=== PATIENT | female | born 1940 | race Caucasian/White ===

== ENCOUNTER 2022-04-02 11:38 | Emergency (ER) | payer MEDICARE, BC, SELFPAY ==
[2022-04-02 12:11] VITALS: BP 115/75; PULSE 70; RESP 18; TEMP 36.8; O2SAT 97; BMI 42.8
--- NOTE | 2022-04-02 12:39 | ED.GENADULT ---
HPI - General Adult General Chief complaint: Head Injury/Pain Stated complaint: Pain on back left side of head Time Seen by Provider: 04/02/22 12:25 History of Present Illness HPI narrative: 82-year-old woman presenting to the emergency department accompanied by her daughter with concern of a headache. She does not typically get headaches. This has been present in some form over the last 2 and half weeks. She describes and gestures to the upper mid left parietal area where there is a persistent 3/10 pain. It throbs and is worse on exertion. In maybe 4-5 times a day she will get more of an intense pain maybe up to 8/10. And this seems then to be present at the back of her head. She has not had any rash/blisters. No fever. No trauma. She is anticoagulated and notes herself to be rock solid on her INRs last checked to 3 weeks ago at 2.6. She is worried about a blood clot. Has not had any discoordination. No nausea. No visual changes. No effect on her hearing noting herself to be chronically hard of hearing using aids. This discomfort is not worse with movement other than exertion is noted. Neck rotation does not change anything. She has not really tried anything for the pain other than her Tylenol for arthritis which does not affect her head pain. No family history of aneurysms or brain tumors. Related Data Home Medications Medication Instructions Recorded Confirmed atenolol 50 mg tablet 50 mg PO Q24H 04/02/22 04/02/22 atorvastatin 20 mg tablet 20 mg PO DAILY 04/02/22 04/02/22 gabapentin 100 mg capsule 200 mg PO Q8H 04/02/22 04/02/22 hydrochlorothiazide 25 mg tablet 25 mg PO DAILY 04/02/22 04/02/22 warfarin 2 mg tablet 1 mg PO DAILY 04/02/22 04/02/22 Allergies Allergy/AdvReac Type Severity Reaction Status Date / Time No Known Drug Allergies Allergy Verified 04/02/22 12:17 Review of Systems Status of ROS: Reports: 10 or more systems reviewed and unremarkable except as noted in History and below [facility] Social History Smoking Status: Never smoker Do you use any of these nicotine containing products: None Second hand tobacco smoke exposure: No How often do you have a drink containing alcohol: never How often do you have six or more drinks on one occasion: Never AUDIT-C Alcohol total score: 0 Non-prescribed substance use: denies use Exam Narrative: Exam Narrative: Pleasant. NAD. Seated calmly. Breathing easily. Cardiovascular appears to be in a regular rate and rhythm. No MRG but distant. Lungs appear to be clear. Is moving all extremities without difficulty. Full strength. Little hard of hearing. Cranial nerves 2-12 are intact. There is no nystagmus. Extraocular movements as noted are intact and full. Not painful. There is no erythema swelling or tenderness over her face. TMJs nontender. Neck is supple and rather sore to palpation in the occipital insertion on the left. Scalp also free of lesions. Otherwise is supple. No lymphadenopathy. Const: Vital Signs, click to edit/add: Vital Signs - 24 hr 04/02/22 12:11 Temperature 98.2 F Pulse Rate [Right Pulse Oximeter] 70 Respiratory Rate 18 Blood Pressure [Ri ght Upper Arm] 115/75 Pulse Oximetry 97 Oxygen Delivery Me thod Room Air Documenting provider has reviewed patient's vital signs: yes Course Vital Signs Vital signs: Initial Vital Signs Temperature 98.2 F 04/02/22 12:11 Temperature Source Temporal Artery Scan 04/02/22 12:11 Pulse Rate 70 04/02/22 12:11 Respiratory Rate 18 04/02/22 12:11 Blood Pressure 115/75 04/02/22 12:11 Blood Pressure Mean 88 04/02/22 12:11 Blood Pressure Position Sitting 04/02/22 12:11 Pulse Oximetry 97 04/02/22 12:11 Oxygen Delivery Method 04/02/22 12:11 Vital Signs Temperature 98.2 F 04/02/22 12:11 Pulse Rate 70 04/02/22 12:11 Respiratory Rate 18 04/02/22 12:11 Blood Pressure 115/75 04/02/22 12:11 Pulse Oximetry 97 04/02/22 12:11 Oxygen Delivery Method 04/02/22 12:11 Temperature 98.2 F 04/02/22 12:11 Pulse Rate 64 04/02/22 13:19 Respiratory Rate 18 04/02/22 12:11 Blood Pressure 114/78 04/02/22 13:19 Pulse Oximetry 96 04/02/22 13:19 Oxygen Delivery Method 04/02/22 13:19 Medical Decision Making MDM Narrative Medical decision making narrative: I suspect more of an occipital neuralgia. She is quite concerned about a ?blood clot? and would very much like head imaging. We will discuss further with Neurology. She does not want anything for pain at the moment. Neurology concurs with suspected dx and reasonable to do a head CT. This was completed and by my read and rad overread looks normal. Discharge Plan Discharge Clinical Impression: Anticoagulated, Occipital neuralgia of left side Patient Disposition: Home w/ Parent or Adult Condition: Stable Additional Instructions: Yes. I suppose you could increase your gabapentin to 900 mg per dose. You seem to tolerate the 600 mg just fine. If this does not seem to make much of a difference I would return to 600 mg after few days. You might place your 's lidocaine patches in that area at the back of your head wear you're most tender. Might try icing. Would still recommend talking with your doctor about an occipital nerve block. Physical therapy might be helpful; do not know if steroid iontophoresis would be indicated here. Might try acupuncture. [place] from [facility] if really troubling at some point. Prescriptions: No Action atenolol 50 mg tablet 50 mg PO Q24H Label Comments: TAKE ONE TABLET BY MOUTH EVERY DAY atorvastatin 20 mg tablet 20 mg PO DAILY Label Comments: TAKE ONE TABLET BY MOUTH ONCE DAILY gabapentin 100 mg capsule 200 mg PO Q8H Label Comments: TAKE 2 CAPSULES (200 MG) BY MOUTH 3 TIMES DAILY. hydrochlorothiazide 25 mg tablet 25 mg PO DAILY Label Comments: TAKE ONE TABLET BY MOUTH EVERY DAY warfarin 2 mg tablet 1 mg PO DAILY Label Comments: TAKE ONE-HALF TABLET (1MG) BY MOUTH EVERY TUE, FRI; TAKE ONE TABLET (2MG) ALL OTHER DAYS IN THE EVENING OR DIRECTED Follow Up/Referrals: Gasper Ludwig MD [Primary Care Provider] - Stand Alone Forms: [employer] Info Instructions
--- OUTSIDE RECORDS SUMMARY | 2022-04-02 12:52 | XMS_ITS | Encounter Summary ---
:1940 Author Organization [facility] Address [address] [place] [address] Care Team Providers Name Role Phone Unavailable Primary Care Provider Unavailable Encounter Details Date Type Department Care Team Description 06/11/2011 Hospital Encounter HX NO MAPPING Social History Tobacco Use Types Packs/Day Years Used Date Smoking Tobacco: Never Assessed Sex Assigned at Date Recorded Not on file documented as of this encounter Plan of Treatment Upcoming Encounters Date Type Specialty Care Team Description 04/09/2022 Office Visit Family Medicine Florentino Salmon M.D. [address] [place], [place] [phone] (Wo rk) documented as of this encounter Visit Diagnoses Not on filedocumented in this encounter
--- OUTSIDE RECORDS SUMMARY | 2022-04-02 12:52 | XMS_ITS | Encounter Summary ---
:1940 Author Organization [facility] Address [address] [place] [address] Care Team Providers Name Role Phone Elsewhere, Pcp Primary Care Provider Unavailable Encounter Details Date Type Department Care Team Description 01/17/2022 Ancillary Procedure Department of Dermatology Social History Tobacco Use Types Packs/Day Years Used Date Smoking Tobacco: Never Smokeless Tobacco: Never Sex Assigned at Date Recorded Not on file documented as of this encounter Plan of Treatment Upcoming Encounters Date Type Specialty Care Team Description 04/09/2022 Office Visit Family Medicine Florentino Salmon M.D. [address] [place], [place] [phone] (Wo rk) documented as of this encounter Procedures Procedure Name Priority Date/Time Associated Comments Diagnosis DERMATOLOGY IMAGE Routine 01/17/2022 11:55 Result s for this EXAM AM CDT procedure are i n the results section. documented in this encounter Results Generalized 500-Dermatology Image Exam (01/17/2022 11:55 AM CDT) Specimen (Source) Anatomical Collection Method Collection Time Re ceived Time Location / / Volume Laterality 01/17/2022 11:53 AM CDT Narrative [facility] - 01/17/2022 11:55 AM CDT This order has been created and auto-finalized to support the import of images acquired without order. The clini mary documentation to support these images can be found on the encounter audrey t produced images. Provider Not In System IMG NON RAD IMAGING PROCEDUR ES Performing Organization Address City/State/ZIP Code Phon e Number [facility] NA documented in this encounter Visit Diagnoses Not on filedocumented in this encounter Care Teams Bilingual Trainer Relationship Specialty Start Date End Date Elsewhere, Pcp PCP - General Internal Medicine 01/17/22 documented as of this encounter
--- OUTSIDE RECORDS SUMMARY | 2022-04-02 12:52 | XMS_ITS | Encounter Summary ---
:1940 Author Organization [facility] Address [address] [place] [address] Care Team Providers Name Role Phone Unavailable Primary Care Provider Unavailable Encounter Details Date Type Department Care Team Description 06/11/2011 - Hospital Encounter HX RST UNIT 5-4 06/12/2011 GYNECOLOGY Social History Tobacco Use Types Packs/Day Years Used Date Smoking Tobacco: Never Assessed Sex Assigned at Date Recorded Not on file documented as of this encounter Last Filed Vital Signs Vital Sign Reading Time Taken Comments Blood Pressure 124/62 06/12/2011 7:46 AM CELLOPHANE BAG MACHINE OPERATOR Pulse 63 06/12/2011 7:46 AM CELLOPHANE BAG MACHINE OPERATOR Temperature - - Respiratory Rate 16 06/12/2011 7:46 AM CELLOPHANE BAG MACHINE OPERATOR Oxygen Saturation - - Inhaled Oxygen Concentration - - Weight - - Height - - Body Mass Index - - documented in this encounter Plan of Treatment Upcoming Encounters Date Type Specialty Care Team Description 04/09/2022 Office Visit Family Medicine Florentino Salmon M.D. [address] [place], [place] [phone] (Wo rk) documented as of this encounter Procedures Procedure Name Priority Date/Time Associated Comments Diagnosis CBC WITHOUT Routine 06/11/2011 11:56 PM Results for this DIFFERENTIAL, B CELLOPHANE BAG MACHINE OPERATOR procedure ar e in the results section. CREATININE WITH Routine 06/11/2011 11:56 PM Resul ts for this EGFR, S/P CELLOPHANE BAG MACHINE OPERATOR procedure are i n the results section. HXGENERAL PATHOLOGY Routine 06/11/2011 3:45 PM Re sults for this REPORT CELLOPHANE BAG MACHINE OPERATOR procedure are i n the results section. documented in this encounter Results CBC without Differential (06/11/2011 11:56 PM CELLOPHANE BAG MACHINE OPERATOR) Patholo gist Method Time Signature Erythrocytes 4.77 3.90 - [facility] 5.03 LABORATORIES - X10(12)/L [facility] MCV 91.6 81.6 - [facility] 98.3 FL LABORATORIES - [facility] Leukocytes 8.7 3.5 - [facility] 10.5 LABORATORIES - X10(9)/L [facility] Hemoglobin 13.9 12.0 - [facility] 15.5 G/DL LABORATORIES - [facility] Hematocrit 43.7 34.9 - [facility] 44.5 % [facility] - [facility] RBC Distrib Width 13.8 11.9 - [facility] 15.5 % [facility] - [facility] Platelet Count 183 150 - 450 [facility] X10(9)/L [facility] Specimen Anatomical Collection Method Collection Time Receive d Time (Source) Location / / Volume Laterality 06/11/2011 11:56 06/11/2011 PM CELLOPHANE BAG MACHINE OPERATOR 11:56 PM CELLOPHANE BAG MACHINE OPERATOR Kait Rock, B.Ch. LAB BLOOD ADD-ON Performing Organization Address City/[facility]/ZIP Code Phon e Number [facility] LABORATORIES - [address] [phone] [facility] Creatinine with Estimated GFR (MDRD) (06/11/2011 11:56 PM CELLOPHANE BAG MACHINE OPERATOR) P athologist Signature Creatinine 0.7 0.6 - 1.1 [facility] MG/DL [facility] Specimen Anatomical Collection Method Collection Time Receive d Time (Source) Location / / Volume Laterality 06/11/2011 11:56 06/11/2011 PM CELLOPHANE BAG MACHINE OPERATOR 11:56 PM CELLOPHANE BAG MACHINE OPERATOR Kati Rock, B.Ch. LAB BLOOD ADD-ON Performing Organization Address City/[facility] Phon e Number [facility] - [address] [phone] [facility] Hx general Pathology Report (06/11/2011 3:45 PM CELLOPHANE BAG MACHINE OPERATOR) Specimen Anatomical Collection Method Collection Time Receive d Time (Source) Location / / Volume Laterality 06/11/2011 3:45 PM 2 3:45 CELLOPHANE BAG MACHINE OPERATOR PM CELLOPHANE BAG MACHINE OPERATOR Narrative [facility] LABORATORIES - [facility] - 06/11/2011 3:45 PM CELLOPHANE BAG MACHINE OPERATOR ??06/11/2011 Surgical Pathology ?([id number]) ? Requested By: Liliana Carlisle ??[phone] ? SLIDE DISPOSITION: ? DIAGNOSIS: ?? A. ??Endocervix, polyp, excision: ??End ocervical polyp (1.5 x 0.9 x 0.7 cm). ?? B. ??Endocervix, curettage: ??Benign en docervical polyp (0.9 x 0.5 x 0.4 cm). ?? C. ??Endometrium, curettage: ??Fragment s of benign endometrial polyp and inactive endometrium. ?? D. ??Ovary and fallopian tube, right, s alpingo-oophorectomy: ??Right fallopian tube with benign chronic mary tosalpinx (3.6 x 1.9 x 1.6 cm), negative for tumor. ??Right ovary without diagnostic abnormality. ?? E. ??Ovary and fallopian tube, left, sa lpingo-oophorectomy: ??Left fallopian tube with benign chronic mary tosalpinx (3.3 x 1.4 x 1.3 cm), negative for tumor. ??Left ovary w ithout diagnostic abnormality. ?? This final pathology report is based on the gross/macroscopic examination and the frozen section hist ologic evaluation of the specimen(s). Hematoxylin and Eosin (H&E ) permanent sections are reviewed to confirm these findings. Any substantive changes identified on permanent section review will be reflected in a revised report. ? 06/12/2011 12:11 Interpreted by: Daniel Kamara M.D. [phone] Report electronically signed by Daniel Kamara M.D. Transcribed by: keenan 06/11/2011 17:32:34 ? GROSS DESCRIPTION: A. ??Received fresh labeled endocervic al polyp is a 1.5 x 0.9 x 0.7 cm mitchell-red bilobed polyp. ??All submitt ed. ??Grossed by NINFA. ?? B. ??Received fresh labeled endocervic al curettage is a 0.9 x 0.5 x 0.4 cm pink-mitchell polyp. ??All submitted. ??Grossed by NINFA. ?? C. ??Received fresh labeled endometria l curettage is a 1.8 x 1.6 x 0.4 cm aggregate of irregular pink-mitchell tissue fragments. ??All submitted. ??Grossed by DARIN. ?? D. ??Received fresh labeled right fall opian tube and ovary is a 19.92 gram, 2.8 x 1.4 x 1.2 cm ovary wi th a 10.2 x 1.9 x 1.6 cm fallopian tube. ??The ovary has a mickie h outer surface and solid cut surface. ??The proximal portion of the fallopian tube is dilated (3.6 x 1.9 x 1.6 cm) and contains hemorrhagi c fluid, consistent with hematosalpinx. ??The fallopian tube als o shows evidence of prior tubal ligation. ??Flatbed Driver sectio ns are submitted. ??Grossed by NINFA. ?? E. ??Received fresh labeled left fallo pian tube and ovary is a 10.65 gram, 3.0 x 1.4 x 1.3 cm ovary wi th a 9.3 x 1.4 x 1.3 cm fallopian tube. ??The ovary has a mickie h outer surface and solid cut surface. ??The proximal portion of the fallopian tube is dilated (3.3 x 1.4 x 1.3 cm) and contains hemorrhagi c fluid, consistent with hematosalpinx. ??The fallopian tube als o shows evidence of prior tubal ligation. ??Flatbed Driver sectio ns are submitted. ??Grossed by NINFA. ?? BLOCK SUMMARY: Part A: ??Endocervical polyp ?1 Endocervical polyp ?? Part B: ??Endocervical curretage ?1 Endocervical curettage ?? Part C: ??Endometrial curettage ?1 Endometrial curettage ?? Part D: ??Right fallopian tube and ovar y ?1 Rt tube-1 ?2 Rt tube-2 ?3 Rt tube-3 ?4 Rt ovary ?? Part E: ??Left fallopian tube and ovary ?1 Lt tube-1 ?2 Lt tube-2 ?3 Lt ovary ? Procedure Note 08/15/2017 06/11/2011 Surgical Pathology ([id number] ) Requested By: Liliana Carlisle [phone] SLIDE DISPOSITION: DIAGNOSIS: A. Endocervix, polyp, excision: Endocer vical polyp (1.5 x 0.9 x 0.7 cm). B. Endocervix, curettage: Benign endoce rvical polyp (0.9 x 0.5 x 0.4 cm). C. Endometrium, curettage: Fragments of benign endometrial polyp and inactive endometrium. D. Ovary and fallopian tube, right, noah pingo-oophorectomy: Right fallopian tube with benign chronic mary tosalpinx (3.6 x 1.9 x 1.6 cm), negative for tumor. Right ovary wi thout diagnostic abnormality. E. Ovary and fallopian tube, left, salp ingo-oophorectomy: Left fallopian tube with benign chronic mary tosalpinx (3.3 x 1.4 x 1.3 cm), negative for tumor. Left ovary wit hout diagnostic abnormality. This final pathology report is based on the gross/macroscopic examination and the frozen section hist ologic evaluation of the specimen(s). Hematoxylin and Eosin (H&E ) permanent sections are reviewed to confirm these findings. Any substantive changes identified on permanent section review will be reflected in a revised report. 06/12/2011 12:11 Interpreted by: Daniel Kamara M.D. [phone] Report electronically signed by Daniel Kamara M.D. Transcribed by: keenan 06/11/2011 17:32:34 GROSS DESCRIPTION: A. Received fresh labeled endocervical polyp is a 1.5 x 0.9 x 0.7 cm mitchell-red bilobed polyp. All submitted . Grossed by NINFA. B. Received fresh labeled endocervical curettage is a 0.9 x 0.5 x 0.4 cm pink-mitchell polyp. All submitted. G rossed by NINFA. C. Received fresh labeled endometrial curettage is a 1.8 x 1.6 x 0.4 cm aggregate of irregular pink-mitchell tissue fragments. All submitted. Grossed by DARIN. Cassidy. Received fresh labeled right fallop filiberto tube and ovary is a 19.92 gram, 2.8 x 1.4 x 1.2 cm ovary wi th a 10.2 x 1.9 x 1.6 cm fallopian tube. The ovary has a smooth outer surface and solid cut surface. The proximal portion of the fa llopian tube is dilated (3.6 x 1.9 x 1.6 cm) and contains hemorrhagi c fluid, consistent with hematosalpinx. The fallopian tube also shows evidence of prior tubal ligation. Flatbed Driver sections are submitted. Grossed by TJD. Gordon. Received fresh labeled left fallopi an tube and ovary is a 10.65 gram, 3.0 x 1.4 x 1.3 cm ovary wi th a 9.3 x 1.4 x 1.3 cm fallopian tube. The ovary has a smooth outer surface and solid cut surface. The proximal portion of the fa llopian tube is dilated (3.3 x 1.4 x 1.3 cm) and contains hemorrhagi c fluid, consistent with hematosalpinx. The fallopian tube also shows evidence of prior tubal ligation. Flatbed Driver sections are submitted. Grossed by NINFA. BLOCK SUMMARY: Part A: Endocervical polyp 1 Endocervical polyp Part B: Endocervical curretage 1 Endocervical curettage Part C: Endometrial curettage 1 Endometrial curettage Part D: Right fallopian tube and ovary 1 Rt tube-1 2 Rt tube-2 3 Rt tube-3 4 Rt ovary Part E: Left fallopian tube and ovary 1 Lt tube-1 2 Lt tube-2 3 Lt ovary Evgeny Mauricio M.D. LAB PATHOLOGY/CYTOLOGY ORDER TISH Performing Organization Address City/State/ZIP Code Phon e Number [facility]ORATORIES - [address] [place], [place] [address] [facility] documented in this encounter Visit Diagnoses Not on filedocumented in this encounter
--- OUTSIDE RECORDS SUMMARY | 2022-04-02 12:52 | XMS_ITS | Encounter Summary ---
:1940 Author Organization [facility] Address [address] [place] [address] Care Team Providers Name Role Phone Unavailable Primary Care Provider Unavailable Encounter Details Date Type Department Care Team Description 09/19/2008 - Hospital Encounter HX RST UNIT 8-2 09/22/2008 ORTHOPEDICS Social History Tobacco Use Types Packs/Day Years Used Date Smoking Tobacco: Never Assessed Sex Assigned at Date Recorded Not on file documented as of this encounter Plan of Treatment Upcoming Encounters Date Type Specialty Care Team Description 04/09/2022 Office Visit Family Medicine Florentino Salmon M.D. [address] [place], [place] [phone] (Wo rk) documented as of this encounter Procedures Procedure Name Priority Date/Time Associated Comments Diagnosis DX KNEE UNILATERAL 2 Routine 09/19/2008 4:10 PM R esults for this VIEWS CDT procedure are i n the results section. documented in this encounter Results DX Knee 2 Views (09/19/2008 4:10 PM CDT) Anatomical Region Laterality Modality Lower Extremity, Knee N/A Radiographic Imagi ng Specimen (Source) Anatomical Collection Method Collection Time Re ceived Time Location / / Volume Laterality 09/19/2008 4:10 PM CDT Narrative 09/19/2008 4:16 PM CDT 19-Sep-2008 16:10:00 ??Exam: R Knee 2vw AP/Lat Indications: INTRAOP, advanced osteoarth ritis, right knee replacement, Final films ORIGINAL REPORT - 19-Sep-2008 16:16:00 Right Knee 2vw AP/Lat: Intra-operative images obtained during r ight TKA with patellar resurfacing. Negative for PO purposes. Electronically signed by: ?? LilianaS. ??Moncho CARMICHAEL ??[phone] 19-Sep-2008 16:16 Procedure Note Taj Ivan M.D. - 08/23/2017Format ting of this note might be different from the original. 19-Sep-2008 16:10:00 Exam: R Knee 2vw AP /Lat Indications: INTRAOP, advanced osteoarth ritis, right knee replacement, Final films ORIGINAL REPORT - 19-Sep-2008 16:16:00 Right Knee 2vw AP/Lat: Intra-operative images obtained during r ight TKA with patellar resurfacing. Negative for PO purposes. Electronically signed by: Cally Ivan MD. [phone] 19-Sep-2008 16:1 6 [facility] DIAGNOSTIC IMAGING [facility]E [facility] documented in this encounter Visit Diagnoses Not on filedocumented in this encounter
--- OUTSIDE RECORDS SUMMARY | 2022-04-02 12:52 | XMS_ITS | Clinical Summary ---
:1940 Author Organization [facility] Address [address] [place] [address] Care Team Providers Name Role Phone Elsewhere, Pcp Primary Care Provider Unavailable Source Comments Patient records contain information from all sites at [facility]. For routine questions regarding patient records, call [phone] during business hours, M-F 8:00 AM - 5:00 PM Central Time. Record requests for emergency care only can be directed to [phone] at any time.[facility] Allergies Active Allergy Reactions Severity Noted Date Comments Fluconazole Other (see comments) 08/06/2006 per pap er chart sick Poly-Ureaurethane Shortness of breath Low 04/30/2016 Polyurethane-39 Shortness of breath 05/08/2011 Sulfa (Sulfonamide Other (see comments), High 08/06/2006 Other reaction(s): Antibiotics) GI intolerance nausea Sulfasalazine Nausea Only 11/13/2015 Tramadol Other (see comments) 09/19/2008 Medications Medication Sig Dispensed Refills Start Date End Date Status acetaminophen (TYLENOL) Take 500 mg by 0 12/28/2015 Active 500 mg tablet mouth. albuterol 90 INHALE 1-2 PUFFS 0 06/08/2013 Active mcg/actuation inhaler BY MOUTH EVERY 4 HOURS IF NEEDED atenoloL (TENORMIN) 50 mg Take 50 mg by 0 06/24/2021 Active tablet mouth daily. atorvastatin (LIPITOR) 20 Take 1 tablet by 0 021 Active mg tablet mouth daily. gabapentin (NEURONTIN) Take 200 mg by 0 04/25/2021 Active 100 mg capsule mouth. hydroCHLOROthiazide Take 25 mg by 0 06/24/2021 Active (HYDRODIURIL) 25 mg mouth daily. tablet alum-mag hydroxide-simeth Take 30 mL by 0 04/07/2018 Active 225-200-25 mg/5 mL mouth. suspension warfarin (COUMADIN) 2 mg Take by mouth 1 0 4 Active tablet mg (2 mg x 0.5) every Fri; 2 mg (2 mg x 1) all other days OR as directed. fluorouraciL (EFUDEX) 5 % Apply 1 80 g 6 01/17/2022 Active creamIndications: application Keratosis Actinic topically 2 (two) times a day. For 3-4 wks on entire left arm. Then 3-5 wks on left lower leg. Then 3-5 wks on right lower leg. Then 3-4 wks on entire right arm. triamcinolone (KENALOG) Apply 1 80 g 3 01/17/2022 Active 0.1 % ointment application topically 2 (two) times a day as needed for irritation or rash. May spot treat irritated, sore, or itchy areas of the treatment areas during and after Efudex treatment. Encounters Date Type Specialty Care Team Description 01/17/2022 Ancillary Procedure 01/17/2022 Ancillary Procedure 01/17/2022 Ancillary Procedure 01/17/2022 Ancillary Procedure 01/17/2022 Ancillary Procedure 01/17/2022 Office Visit Family Medicine Florentino Salomn Kerat osis Actinlynda Wasserman from Last 3 Months Immunizations Name Administration Dates Next Due HZV (ZOSTAVAX) 11/04/2010, 02/07/2009 HepA, Unspecified 08/07/2006 HepB, Unspecified 08/07/2006 Influenza Split 02/20/2014, 01/24/2013, 02/23/2008 Influenza, Seasonal, Injectable 03/24/2006 PPSV23 05/25/2004 Td Preservative Free (TENIVAC, DECAVAC) 05/05/1997 Td, (Adult) Unspecified 05/25/2005 Tdap 07/21/2012 TyVi (inj) 02/04/2012 Social History Tobacco Use Types Packs/Day Years Used Date Smoking Tobacco: Never Smokeless Tobacco: Never Tobacco Cessation: Counseling Given: Not Answered Sex Assigned at Date Recorded Not on file Last Filed Vital Signs Vital Sign Reading Time Taken Comments Blood Pressure 158/77 05/29/2014 11:07 AM PROGRAM DIRECTOR/AIR PERSONALITY Pulse 86 05/29/2014 11:07 AM PROGRAM DIRECTOR/AIR PERSONALITY Temperature - - Respiratory Rate 18 02/19/2014 2:20 PM CDT Oxygen Saturation - - Inhaled Oxygen Concentration - - Weight 112 kg (246 lb 7.6 oz) 05/29/2014 11:07 AM PROGRAM DIRECTOR/AIR PERSONALITY Height 156.5 cm (5' 1.61) 05/29/2014 11:07 AM PROGRAM DIRECTOR/AIR PERSONALITY Body Mass Index 45.65 05/29/2014 11:07 AM PROGRAM DIRECTOR/AIR PERSONALITY Plan of Treatment Upcoming Encounters Date Type Specialty Care Team Description 04/09/2022 Office Visit Family Medicine Florentino Salmon M.D. [address] [phone] (Wo rk) Health Maintenance Due Date Last Done Comments Zoster Vaccines (2 of 3) 12/30/2010 11/04/2010, 02/07/2009 Depression Screening (Annual 05/25/2021 PHQ-2) Fall Risk Screen (Annual) 05/25/2021 Creatinine Level 10/25/2021 10/25/2020, 05/03/2019, 08/11/2018, Additional history exists Potassium Level 10/25/2021 10/25/2020, 05/03/2019, 02/09/2018 Sodium Level 10/25/2021 10/25/2020, 05/03/2019, 02/09/2018 COVID-19 Vaccine (5 - Booster for 02/25/2022 12/31/2021, , Pfizer series) 07/31/2020, Additional history exists DTaP,Tdap,and Td Vaccines (7 - Td 07/21/2022 07/21/2012, , or Tdap) 05/25/2005, Additional history exists Hepatitis B Vaccines Completed 07/02/2007, 02/22/2007, 09/08/2006, Additional history exists Pneumococcal vaccine (65+ years) Completed 01/24/2015, , 05/25/2004, Additional history exists Influenza Vaccine Completed 02/07/2022, 01/29/2021, 02/17/2020, Additional history exists Medical Devices Implanted Type Area General Counselor Device Shelf Model / Identifier Expiration Serial / Date Lot Triathlon-Tibial Baseplate [place] #2 - [id number] Knee Other/Legacy - Dickson Implanted: Qty: 1 on 05/10/2008 Implant See Implant Description Description: Device General Counselor - Stryk er Eric.. Body Location - Other. Left. Device Status Text - [id number] [id number]. Triathlon-Femoral Cemented #3 Rt - [id number] Knee Implant Other/Legacy - See Implant Hewitt Implanted: Qty: 1 on 09/19/2008 Description Description: Device General Counselor - Stryk er Eric.. Body Location - Other. Right. Device Status Text - [id number] [id number]. Conversions - Default Historical Implant Device Knee Implant Implanted: 05/29/2014 (Quantity not on file) Description: Device Status Text - Knee I mp. both knees. Cement Bone Large - Garcia [id number] Misc Other Hewitt Implanted: Qty: 2 on 05/10/2008 Description: Device General Counselor - Stryk er Eric.. Device Status Text - [id number]. Cement Bone Large - Garcia [id number] Misc Other Dickson Implanted: Qty: 2 on 09/19/2008 Description: Device General Counselor - Stryk er Eric.. Device Status Text - [id number]. Procedures Procedure Name Priority Date/Time Associated Comments Diagnosis DERMATOLOGY IMAGE Routine 01/17/2022 11:55 Result s for this EXAM AM CDT procedure are i n the results section. DERMATOLOGY IMAGE Routine 01/17/2022 11:55 Result s for this EXAM AM CDT procedure are i n the results section. DERMATOLOGY IMAGE Routine 01/17/2022 11:55 Result s for this EXAM AM CDT procedure are i n the results section. DERMATOLOGY IMAGE Routine 01/17/2022 11:55 Result s for this EXAM AM CDT procedure are i n the results section. DERMATOLOGY IMAGE Routine 01/17/2022 11:55 Result s for this EXAM AM CDT procedure are i n the results section. from Last 3 Months Results Leg left 528b-Dermatology Image Exam (01/17/2022 11:55 AM CDT)Only the most recent of5 resultswithin the time period is included. Specimen (Source) Anatomical Collection Method Collection Time [...] Code Phon e Number IIMS IIMS NA from Last 3 Months Insurance Payer Benefit Plan / Subscriber ID Effective Phone Address T ype Group Dates MEDICARE MEDICARE A AND [id number] 2005-Pres [address] [place] [address] [place] [id number] 2018-Prese [place] [place] [id number] Indemnity [place] [address] Advance Directives For more information, please contact: [phone] Documents on File Type Date Recorded Patient Transmission Line Engineer Explanati on Advance Directives 08/31/2019 11:12 AM Health Care Directive Advance Directives 10/14/2016 12:00 AM Legacy doc ument. See document viewer. Advance Directives 10/14/2016 12:00 AM Legacy doc ument. See document viewer. Healthcare Agents on File Name Relationship Healthcare Agent Communication Relationship Erin Tran Spouse Health Care Agent Nataliya Lewis Daughter [facility] Care Agent Care Teams Investment Director Relationship Specialty Start Date End Date Elsewhere, Pcp PCP - General Internal Medicine 01/17/22
--- OUTSIDE RECORDS SUMMARY | 2022-04-02 12:52 | XMS_ITS | Encounter Summary ---
:1940 Author Organization [facility] Address [address] [place] [address] Care Team Providers Name Role Phone Elsewhere, [...] Medicine Florentino Salmon M.D. [address] [place], [place] [phone] (Wo rk) documented as of this encounter Procedures Procedure Name Priority Date/Time Associated Comments Diagnosis DERMATOLOGY IMAGE Routine 01/17/2022 11:55 Result s for this EXAM AM CDT procedure are i n the results section. documented in this encounter Results Leg left 528b-Dermatology Image Exam (01/17/2022 11:55 AM CDT) Specimen [...] on filedocumented in this encounter Care Teams Customs Broker Relationship Specialty Start Date End Date Elsewhere, Pcp PCP - General Internal Medicine 01/17/22 documented as of this encounter
--- OUTSIDE RECORDS SUMMARY | 2022-04-02 12:52 | XMS_ITS | Encounter Summary ---
:1940 Author Organization [facility] Address [address] [place] [address] Care Team Providers Name Role Phone Elsewhere, Pcp Primary Care Provider Unavailable Reason for Referral Outpatient (Routine) - Authorized Specialty Diagnoses / Procedures Referred By Contact Refer red To Contact Dermatology [facility]orentino Sal[facility] [address] [place] [address] Referral ID Status Reason Start Date Expiration Date Visits V isits Requested Authorized [id number] Authorized 01/17/2022 01/16/2025 1 1 Scheduling Instructions 3 month recheck Efudex Reason for Visit Reason Comments Lesion Outpatient (Routine) - Closed Specialty Diagnoses / Procedures Referred By Contact Refer red To Contact Dermatology Florentino Sal[facility] [address] [place] [phone] Referral ID Status Reason Start Date Expiration Date Visits Requ ested Visits Authorized [id number] Closed 09/04/2021 09/04/2022 1 1 Encounter Details Date Type Department Care Team Description 01/17/2022 Office Visit Department of [facility] Florentino Salmon, Keratosis Actinic MedicineJohnathan M.D. [facility], in [place], [address] [facility] [place] [address] [phone] ROCHELLE ALVAREZ [phone] (Wo rk) [phone] Social History Tobacco Use Types Packs/Day Years Used Date Smoking Tobacco: Never Smokeless Tobacco: Never Tobacco Cessation: Counseling Given: Not Answered Sex Assigned at Date Recorded Not on file documented as of this encounter H&P Notes Florentino Salmon M.D. - 01/17/2022 11:15 AM CDT Images from the original note were not included. Note: Patient was made aware that I am trained as a Family Medicine Specialist and have a special interest in Dermatology. However, I am not a supervisor decorating. Anything beyond the scope of my abilities or comfort level will be referred to a End User Consultant of their choosing. SUBJECTIVE CHIEF COMPLAINT / REASON FOR VISIT Lesion of concern HISTORY OF PRESENT ILLNESS Chief Complaint (Reason for visit): Recheck arms after efudex How long has lesion(s) been present, any symptoms (pain, bleeding, or itching)? : Started back in july, feels it didn't do anything Was patient referred, self referred, or a returning derm patient? : returning Personal or family history of skin cancer or other skin condition? : Aks Any other skin concerns today? : none REVIEW OF SYSTEMS PERTINENT TO DERMATOLOGY REVIEW OF SYSTEMS Constitutional, integumentary, and allergic/immunologic review of systems is negative of systems is otherwise negative except as remarked above or below. PAST MEDICAL/FAMILY/SOCIAL HISTORY PERTINENT TO DERMATOLOGY See HPI OBJECTIVE PHYSICAL EXAM Physical Exam Chest General: Alert and oriented x3. Well-nourished and groomed, in no acute distress. SKIN: A focused skin examination was performed of the area(s) of concern. She still has multiple AKson bilateral arms and bilateral lower legs. ASSESSMENT / PLAN #1 Keratosis Actinic She has 4 on the chest. I recommended treating these with cryotherapy. Given the precancerous nature of the lesion(s), treatment is medically indicated and cryotherapy was recommended. Verbal informedconsent was obtained from the patient and we proceeded to treat the premalignant lesion(s) with liquid nitrogen cryotherapy.Aftercare instructions were given. Should the lesion(s) not resolve after thehealing period, patient should return for reevaluation and consideration of biopsy. She has numerous AKs on bilateral arms and lower legs. We'll have her use topical efudex in a rotation. - fluorouraciL (EFUDEX) 5 % cream; Apply 1 application topically 2 (two) times a day. For 3-4 wks onentire left arm. Then 3-5 wks on left lower leg. Then 3-5 wks on right lower leg. Then 3-4 wks on entire right arm., Starting Thu01/17/2022, Normal - triamcinolone (KENALOG) 0.1 % ointment; Apply 1 application topically 2 (two) times a day as needed for irritation or rash. May spot treat irritated, sore, or itchy areas of the treatment areas during and after Efudex treatment., Starting Thu01/17/2022, Normal 2. Derm Follow Up Frequency: 3 months, or sooner if new skin changes occur. Florentino Salmon MD This note represents shared documentation between the assisting nurse and the encounter provider. The content has been reviewed and edited as needed by the provider. documented in this encounter Plan of Treatment Upcoming Encounters Date Type Specialty Care Team Description 04/09/2022 Office Visit Family Medicine Florentino Salmon M.D. [address] [phone] (Wo rk) Scheduled Referrals Name Type Priority Associated Order Schedule Diagnoses Dermatology office Outpatient Referral Routine Ex pected: visit (clinic) 04/19/2022 (Approximate), Expires: 04/19/2023 documented as of this encounter Visit Diagnoses Diagnosis Keratosis Actinic documented in this encounter Care Teams Liquor Maker Relationship Specialty Start Date End Date Elsewhere, Pcp PCP - General Internal Medicine 01/17/22 documented as of this encounter
--- OUTSIDE RECORDS SUMMARY | 2022-04-02 12:52 | XMS_ITS | Encounter Summary ---
:1940 Author Organization [facility] Address [address] [place] [address] Care Team Providers Name Role Phone Unavailable Primary Care Provider Unavailable Reason for Referral Outpatient (Routine) - Closed Specialty Diagnoses / Procedures Referred By Contact Corina chadwick To Contact Dermatology Florentino Salmon M.D. [facility] [address] [place] [phone] Referral ID Status Reason Start Date Expiration Date Visits Requ ested Visits Authorized [id number] Closed 09/04/2021 09/04/2022 1 1 Scheduling Instructions Recheck arms after Efdex Reason for Visit Reason Comments Actinic Keratosis Appointment Request (Routine) - Closed Specialty Diagnoses / Procedures Referred By Contact Corina chadwick To Contact Dermatology Referral ID Status Reason Start Date Expiration Date Visits Requ ested Visits Authorized [id number] Closed 07/23/2021 07/23/2022 1 1 Encounter Details Date Type Department Care Team Description 09/04/2021 Comprehensive Visit Department of Florentino Salmon atosis Actinic (Primary Dx); Dermatology amanda Rocha M.D. [facility] [place], [place] [address] [place] [phone] Social History Tobacco Use Types Packs/Day Years Used Date Smoking Tobacco: Never Sex Assigned at Date Recorded Not on file documented as of this encounter H&P Notes Florentino Salmon M.D. - 09/04/2021 3:30 PM CDT Images from the original note were not included. Note: Patient was made aware that I am trained as a Family Medicine Specialist and have a special interest in Dermatology. However, I am not a pot annealer. Anything beyond the scope of my abilities or comfort level will be referred to a Synchronous Motor Assembler of their choosing. SUBJECTIVE CHIEF COMPLAINT / REASON FOR VISIT Waist up skin exam, screening for skin cancer HISTORY OF PRESENT ILLNESS Reason for visit: Check arms legs and back More details of current skin concern: Any other skin concerns: No Has the patient previously been a dermatology patient? No Is patient referred by another provider or self referred? New patient Personal history of skin cancer? (include details) No Significant history of sun exposure? Yes Two or more blistering sunburns before age 16? Yes History of tanning bed use? No Personal history of other skin problems? No Family history of skin cancer? No Family history of other significant skin problems? No REVIEW OF SYSTEMS PERTINENT TO DERMATOLOGY REVIEW OF SYSTEMS Constitutional, integumentary, and allergic/immunologic review of systems is negative of systems is otherwise negative except as remarked above or below. PAST MEDICAL/FAMILY/SOCIAL HISTORY PERTINENT TO DERMATOLOGY See HPI OBJECTIVE PHYSICAL EXAM Physical Exam Chest Chest comments: Numerous actinic keratoses covering the neckline area Upper extremities Upper extremities comments: Numerous actinic keratoses covering both upper extremities Lower extremities Right lower extremity comments: Numerous actinic keratoses covering both lower legs. These are less numerous than the arms, however. General: Alert and oriented x3. Well-nourished and groomed, in no acute distress. SKIN: A full skin examination was performed of the scalp, head, neck, face, hair, chest, abdomen, back, upper extremities including palms, digits and nails. Eyes and lips including vermilion lips, alsoexamined. Skin inspected and palpated where appropriate., and dermoscope utilized where appropriate.There are multiple nevi of the chest, abdomen, back, and the upper extremities of benign appearance with moderately sun damaged skin. For skin lesions of special note, including location, description, size, and treatment plan, see Impression/Report/Plan below. ASSESSMENT / PLAN IMPRESSION/REPORT/PLAN 1. Waist up skin examination was performed today, screening for skin cancer. Education was given on appropriate sun protection and monitoring for suspicious skin changes. 2. Lesions of note with assessment and plan of care as follows: Numerous actinic keratoses in the sun exposed areas, except notably, her face. Recommend we start Efudex twice daily for 3 wks on the right arm followed by 3 wks on the left arm. I'd like to see her back after these have healed and then we can move on to the other areas if she's responding well. 3. 2 cyst-like lesions on the right labia majora. These are somewhat reassuring in that they are round and smooth, however they are not in typical areas for cysts in the genital area. I'd like for INTERACTIVE GRAPHIC DESIGNER specialty to evaluate these to see if they need to biopsy them or if they feel these are benign. She will make an appointment at her home clinic in [place] for this. 4. Dermatology follow-up Derm Follow Up Frequency: as mentioned above after Efudex treatment, then likely every 6 months for awhile. Florentino Salmon MD This note represents shared documentation between the assisting nurse and the encounter provider. The content has been reviewed and edited as needed by the provider. documented in this encounter Miscellaneous Notes Addendum Note - Helen Encinas, R.M.A. - 09/04/2021 3:30 PM CDT Addended by: HELEN ENCINAS on: 09/04/2021 04:22 PM Modules accepted: Orders documented in this encounter Plan of Treatment Upcoming Encounters Date Type Specialty Care Team Description 04/09/2022 Office Visit Family Medicine Florentino Salmon M.D. [address] [place] [phone] (Wo rk) Scheduled Referrals Name Type Priority Associated Order Schedule Diagnoses Dermatology office Outpatient Referral Routine Ex pected: visit (clinic) 12/06/2021 (Approximate), Expires: 12/04/2022 documented as of this encounter Visit Diagnoses Diagnosis Keratosis Actinic - Primary Sun Damaged Skin documented in this encounter
--- OUTSIDE RECORDS SUMMARY | 2022-04-02 12:52 | XMS_ITS | Encounter Summary ---
:1940 Author Organization [facility] Address [address] [place] [address] Care Team Providers Name Role Phone Elsewhere, [...] Medicine Florentino Salmon M.D. [address] [place], [place] [phone] (Wo rk) documented as of this encounter Procedures Procedure Name Priority Date/Time Associated Comments Diagnosis DERMATOLOGY IMAGE Routine 01/17/2022 11:55 Result s for this EXAM AM CDT procedure are i n the results section. documented in this encounter Results Arm left 523b-Dermatology Image Exam (01/17/2022 11:55 AM CDT) Specimen [...] on filedocumented in this encounter Care Teams Closet Organizer Relationship Specialty Start Date End Date Elsewhere, Pcp PCP - General Internal Medicine 01/17/22 documented as of this encounter
--- OUTSIDE RECORDS SUMMARY | 2022-04-02 12:52 | XMS_ITS | Encounter Summary ---
:1940 Author Organization [facility] Address [address] [place] [address] Care Team Providers Name Role Phone Elsewhere, [...] Medicine Florentino Salmon M.D. [address] [place], [place] [phone] (Wo rk) documented as of this encounter Procedures Procedure Name Priority Date/Time Associated Comments Diagnosis DERMATOLOGY IMAGE Routine 01/17/2022 11:55 Result s for this EXAM AM CDT procedure are i n the results section. documented in this encounter Results Leg right 528a-Dermatology Image Exam (01/17/2022 11:55 AM CDT) Specimen [...] on filedocumented in this encounter Care Teams Grades 9 12 Tutor Relationship Specialty Start Date End Date Elsewhere, Pcp PCP - General Internal Medicine 01/17/22 documented as of this encounter
--- OUTSIDE RECORDS SUMMARY | 2022-04-02 12:52 | XMS_ITS | Encounter Summary ---
:1940 Author Organization [facility] Address [address] [place] [address] Care Team Providers Name Role Phone Elsewhere, [...] Medicine Florentino Salmon M.D. [address] [place], [place] [phone] (Wo rk) documented as of this encounter Procedures Procedure Name Priority Date/Time Associated Comments Diagnosis DERMATOLOGY IMAGE Routine 01/17/2022 11:55 Result s for this EXAM AM CDT procedure are i n the results section. documented in this encounter Results Arm right 523a-Dermatology Image Exam (01/17/2022 11:55 AM CDT) Specimen [...] on filedocumented in this encounter Care Teams Union Contract Representative Relationship Specialty Start Date End Date Elsewhere, Pcp PCP - General Internal Medicine 01/17/22 documented as of this encounter
--- OUTSIDE RECORDS SUMMARY | 2022-04-02 12:52 | XMS_ITS | Encounter Summary ---
:1940 Author Organization [facility] Address [address] [place] [address] Care Team Providers Name Role Phone Unavailable Primary Care Provider Unavailable Encounter Details Date Type Department Care Team Description 11/02/2008 Hospital Encounter HX NO MAPPING Social History Tobacco Use Types Packs/Day Years Used Date Smoking Tobacco: Never Assessed Sex Assigned at Date Recorded Not on file documented as of this encounter Plan of Treatment Upcoming Encounters Date Type Specialty Care Team Description 04/09/2022 Office Visit Family Medicine Florentino Salmon M.D. [address] [place], [place] [phone] (Wo rk) documented as of this encounter Visit Diagnoses Not on filedocumented in this encounter
--- OUTSIDE RECORDS SUMMARY | 2022-04-02 12:52 | XMS_ITS | Encounter Summary ---
:1940 Author Organization [facility] Address [address] [place] [address] Care Team Providers Name Role Phone Unavailable Primary Care Provider Unavailable Encounter Details Date Type Department Care Team Description 05/08/2008 Hospital Encounter HX NO MAPPING Social History Tobacco Use Types Packs/Day Years Used Date Smoking Tobacco: Never Assessed Sex Assigned at Date Recorded Not on file documented as of this encounter Plan of Treatment Upcoming Encounters Date Type Specialty Care Team Description 04/09/2022 Office Visit Family Medicine Florentino Salmon M.D. [address] [place], [place] [phone] (Wo rk) documented as of this encounter Visit Diagnoses Not on filedocumented in this encounter
--- OUTSIDE RECORDS SUMMARY | 2022-04-02 12:52 | XMS_ITS | Encounter Summary ---
:1940 Author Organization [facility] Address [address] [place] [address] Care Team Providers Name Role Phone Unavailable Primary Care Provider Unavailable Encounter Details Date Type Department Care Team Description 08/31/2019 Abstract [facility] Provider, Historical Social History Tobacco Use Types Packs/Day Years Used Date Smoking Tobacco: Never Sex Assigned at Date Recorded Not on file documented as of this encounter Plan of Treatment Upcoming Encounters Date Type Specialty Care Team Description 04/09/2022 Office Visit Family Medicine Florentino Salmon M.D. [address] [place], [place] [phone] (Wo [id number]) documented as of this encounter Visit Diagnoses Not on filedocumented in this encounter
--- OUTSIDE RECORDS SUMMARY | 2022-04-02 12:52 | XMS_ITS | Encounter Summary ---
:1940 Author Organization [facility] Address [address] [place] [address] Care Team Providers Name Role Phone Unavailable Primary Care Provider Unavailable Encounter Details Date Type Department Care Team Description 02/19/2014 Hospital Encounter HX [facility] ED Nickolas Foster M.D. [address] [place] [address] [phone] (Wo rk) Social History Tobacco Use Types Packs/Day Years Used Date Smoking Tobacco: Never Assessed Sex Assigned at Date Recorded Not on file documented as of this encounter Last Filed Vital Signs Vital Sign Reading Time Taken Comments Blood Pressure 158/69 02/19/2014 2:20 PM CDT Pulse 82 02/19/2014 2:20 PM CDT Temperature - - Respiratory Rate 18 02/19/2014 2:20 PM CDT Oxygen Saturation - - Inhaled Oxygen Concentration - - Weight - - Height 157 cm (5' 1.81) 02/19/2014 2:20 PM CDT Body Mass Index - - documented in this encounter Discharge Summaries Kianna Vazquez R.N. - 02/19/2014 4:53 PM CDT ED Discharge Instructions [address] [address] Name: DEDE WONG Date of : 1940 12:00 AM Visit Date: 02/19/2014 2:12 PM [facility] Number: [id number] Address: [address] [place] [phone] Primary Care Provider: ARIELA ROGERS IMPORTANT: [facility] in [place] would like to thank you for allowing us to assist you with your healthcare needs. The following includes patient education materials and informationregarding your injury/illness. Diagnosis: Fracture Vertebra Compression Lumbar Closed Active Follow-Up Instructions: With: Address: When: See Dr. Salter in [place] in 1-2 weeks regarding your back pain. Comments: Your Upcoming Appointments: Date Time Location Provider No Appointments found Patient Education Materials: 48556 Back Fracture (Compression Fracture) Your spine stretches from the base of your skull to your tailbone. It's composed of 33 bones (vertebrae) stacked on top of one another. These bones are strong enough to support the weight of your upperbody. Certain injuries, however, can damage one or more of the vertebrae and cause them to collapse.A collapsed bone in your spine is known as a compression fracture. Causes of Compression Fracture Many compression fractures result from osteoporosis. This disease thins your bones so they can't withstand normal pressure. Trauma from a car accident or hard fall can fracture even healthy vertebrae. In rare cases, vertebrae may fracture for unknown reasons. When to Go to the Emergency Room (ER) Call 911 if you've been in an accident or had a fall and have neck or back pain, especially when pain occurs with any of these symptoms: ?? Loss of control over your bowels or bladder ?? Numbness or weakness ?? High fever ?? Unexplained back pain in a person with cancer What to Expect in the ER A doctor will ask about your medical history and examine you. In some cases, you may have x-rays. You also may have other tests, such as computed tomography (CT) or magnetic resonance imaging (MRI). These tests can provide detailed images of your bones and spinal cord. Treatment Treatment will depend on the type and cause of the fracture. You will be given medication for pain. Severe fractures or those that cause nerve problems may need surgery. But many compression fractures mend on their own. TAKE TYLENOL 1000 mg every 8 hours for pain as your main pain medications. You mayadd TRAMADOL 50 mg one every 6 hours as needed. You may increased this to 100 mg every 6 hours if needed. Also use warm heat to your low back, and you can use a topical muscle rub like Icy Hot. Follow-up As you improve, you may be given exercises to strengthen your bones. If you have osteoporosis, your doctor may prescribe a medication to treat it. Sometimes you may have pain even after the bone has healed. In that case, your doctor will discuss your options with you. ?? [phone] [facility], [address] [place] [address], [place] [address]. All rights reserved. This information is not intended as a substitute for professional medical care. Always follow your healthcare professional's instructions. ED Tests and Procedures: Order Status Automated Diff-5 Part Completed XR Lumbar Spine 2 or 3 views Completed Urinalysis with Microscopic Completed PT/INR Completed CBC (includes Auto Differential) Completed Sedimentation Rate Completed Discharge Prescriptions & Home Medications: Medication/Strength Dose Route Frequency Indications/Special Instructions/Comments/Notes traMADol (traMADol 50 mg oral tablet) See Instructions Pain 1-2 tab(s) PO q6hr albuterol (albuterol) See Instructions Shortness of Breath 1 - 2 puffs as needed hydrochlorothiazide (hydrochlorothiazide 25 mg oral tablet) 25 mg Oral once a day atenolol (atenolol 50 mg oral tablet) 50 mg Oral once a day warfarin (warfarin 3 mg oral tablet) See Instructions 1 tab(s) PO Daily tues, thur,sat,sun warfarin (warfarin 2 mg oral tablet) See Instructions 1 tab(s) PO Daily mon, wed, frid Comment: Attention: If you have any medications at home not on this list, DO NOT take them until you contact your provider for clarification. Give a copy of your medication list to your primary care provider. Update your medication list any time medications or doses are changed and carry your medication list at all times in case of emergency. Medication Reconciliation: Reconciliation is a process of identifying the most accurate list of all medications a patient is taking - including name, dosage, frequency, and route - and using this list to provide to the patient information about how to take those medications. DEDE WONG or jany has reviewed the home medications you have listed with us. Review the following instructions: You have NOT received any prescriptions and you have told us you are not currently taking any home medications You have NOT received any prescriptions. You have been provided a discharge medications list and you may CONTINUE taking your medications as previously prescribed by your regular providers. You have received the listed prescriptions and BEGIN all listed prescriptions as directed. Since you have listed no home medications, please check with your family doctor if you are taking any other medications. You have received the listed prescriptions and BEGIN all listed prescriptions as directed. Youhave been provided a discharge medications list and you may CONTINUE all home medications as previously prescribed by your regular providers. You have received the listed prescriptions and BEGIN all listed prescriptions as directed. Youhave been provided a discharge medications list. The following CHANGES have been made to your medication list; Otherwise, CONTINUE all home medications as previously prescribed by your regular provider. IMPORTANT: We examined and treated you today on an emergency basis only. This was not a substitute for, or an effort to provide, complete medical care. In most cases, you must let your doctor check youagain. Tell your doctor about any new or lasting problems. We cannot recognize and treat all injuries or illnesses in one Emergency Department visit. If you had special tests, such as EKG's or X- rays, we will review them again within 24 hours. We will call you if there are any new suggestions. Please follow the instructions above carefully. If you are being transferred to another facility your followup plan of care will be determined by the receiving facility. If you are a patient that is being discharged from the Emergency Department after receiving narcotics or other medications that may impair your judgment you may be a risk to yourself or others if you operate a motor vehicle. We recommend that you arrange a ride home with a responsible republican. JUDITH Castellon GLORIA JEAN , or responsible republican have received this information and my questions have been answered. I have discussed any challenges I see with this plan with the nurse or physician. Patient Signature or Responsible Green Party/Relationship Date Time Provider Signature Date Time Medication Reconciliation: Reconciliation is a process of identifying the most accurate list of all medications a patient is taking - including name, dosage, frequency, and route - and using this list to provide to the patient information about how to take those medications. DEDE WONG or jany has reviewed the home medications you have listed with us. Review the following instructions: You have NOT received any prescriptions and you have told us you are not currently taking any home medications You have NOT received any prescriptions. You have been provided a discharge medications list and you may CONTINUE taking your medications as previously prescribed by your regular providers. You have received the listed prescriptions and BEGIN all listed prescriptions as directed. Since you have listed no home medications, please check with your family doctor if you are taking any other medications. You have received the listed prescriptions and BEGIN all listed prescriptions as directed. Youhave been provided a discharge medications list and you may CONTINUE all home medications as previously prescribed by your regular providers. You have received the listed prescriptions and BEGIN all listed prescriptions as directed. Youhave been provided a discharge medications list. The following CHANGES have been made to your medication list; Otherwise, CONTINUE all home medications as previously prescribed by your regular provider. IMPORTANT: We examined and treated you today on an emergency basis only. This was not a substitute for, or an effort to provide, complete medical care. In most cases, you must let your doctor check youagain. Tell your doctor about any new or lasting problems. We cannot recognize and treat all injuries or illnesses in one Emergency Department visit. If you had special tests, such as EKG's or X- rays, we will review them again within 24 hours. We will call you if there are any new suggestions. Please follow the instructions above carefully. If you are being transferred to another facility your followup plan of care will be determined by the receiving facility. If you are a patient that is being discharged from the Emergency Department after receiving narcotics or other medications that may impair your judgment you may be a risk to yourself or others if you operate a motor vehicle. We recommend that you arrange a ride home with a responsible republican. JUDITH Castellon GLORIA JEAN , or responsible republican have received this information and my questions have been answered. I have discussed any challenges I see with this plan with the nurse or physician. Patient Signature or Responsible Green Party/Relationship Date Time Provider Signature Date Time This document has images extracted. Please consider using [employer] for all your patient education needs. Source: [employer] Document Id: [id number] Kianna Vazquez R.N. - 02/19/2014 4:53 PM CDT ED Depart Summary [facility] Emergency Department Clinical Discharge Summary PERSON INFORMATION Name DEDE WONG Age 73 Years 1940 12:00 AM Sex Female Language Yemeni PCP PCP, ELSEWHERE Marital Status Visit Id Visit Reason Back pain; Lower Back Pain Specialty Enc Type Emergency Med Service Emergency Medicine Referred by Track Group [facility] ED Discharge 02/19/2014 4:30 PM Tracking Id [id number] Checkout 02/19/2014 4:30 PM Checkin 02/19/2014 2:12 PM Acuity 3 -Urgent Dispo Type * Discharged to Home or Self Care Arrival 02/19/2014 2:12 PM Reg Status Complete LOS 000 02:18 Address: [address] [phone] Comment: PROVIDER INFORMATION Provider Role Provider Contact Time CORETTA FOSTER MD ED Provider 02/19/14 14:18 KIANNA VAZQUEZ DENTURES LAB TECHNICIAN Nurse 02/19/14 14:20 AMOS SELLERS DENTURES LAB TECHNICIAN Nurse 02/19/14 15:11 DIAGNOSIS Fracture Vertebra Compression Lumbar Closed Active Comment: PATIENT EDUCATION INFORMATION Instructions: Back Fracture (Compression Fracture) Follow up: With: Address: When: See Dr. Salter in [place] in 1-2 weeks regarding your back pain. Comments: Source: [employer] Document Id: [id number] documented in this encounter Medications at Time of Discharge Medication Sig Dispensed Refills Start Date End Date albuterol 90 mcg/actuation INHALE 1-2 PUFFS BY 0 06/08/2013 inhaler MOUTH EVERY 4 HOURS IF NEEDED warfarin (COUMADIN) 2 mg Take by mouth 1 mg (2 0 06/08/2013 tablet mg x 0.5) every Fri; 2 mg (2 mg x 1) all other days OR as directed. documented as of this encounter ED Notes Kianna Vazquez R.N. - 02/19/2014 4:22 PM CDT ED Disposition Summary ED Disposition Summary Entered On: 02/19/2014 16:22 CDT Performed On: 02/19/2014 16:22 CDT by KIANNA VAZQUEZ RN ED Disposition Summary Accompanied By : Daughter Mode of Discharge : Ambulatory Transportation : Private vehicle Discharge From ED With : Home Med List Printed Discharge Instructions Given to Patient : Yes Patient Status at Discharge from ED : Improved KIANNA VAZQUEZ RN - 02/19/2014 16:22 CDT Source: [employer] Document Id: [id number] CDT!8 Kianna Vazquez R.N. - 02/19/2014 4:22 PM CDT ED Pain Assessment ED Pain Assessment Entered On: 02/19/2014 16:23 CDT Performed On: 02/19/2014 16:22 CDT by KIANNA VAZQUEZ RN Pain Assessment Pain Symptoms : Yes KIANNA VAZQUEZ RN - 02/19/2014 16:22 CDT Pain Pain Assessment Grid Pain 1 Location : Lower back Intensity : 5 KIANNA VAZQUEZ RN - 02/19/2014 16:22 CDT Source: [employer] Document Id: [id number] CDT!8 Kianna Vazquez R.N. - 02/19/2014 4:11 PM CDT ED Nurse Reassess ED Nurse Reassess Entered On: 02/19/2014 16:11 CDT Performed On: 02/19/2014 16:11 CDT by KIANNA VAZQUEZ RN Pain Assessment Pain Symptoms : Yes KIANNA VAZQUEZ RN - 02/19/2014 16:11 CDT Pain Pain Assessment Grid Pain 1 Location : Lower back Intensity : 6 KIANNA VAZQUEZ RN - 02/19/2014 16:11 CDT Source: [employer] Document Id: [id number] CDT!8 Coretta Foster M.D. - 02/19/2014 3:06 PM CDT Back pain Patient: DEDE WONG Age: 73 years Sex: Female : 1940 Author: CORETTA FOSTER MD Attachments: None Basic Information Time seen: Date & time 02/19/2014 15:06:00. History source: Patient, daughter. Arrival mode: Walking. History limitation: None. Additional information: Chief Complaint from Nursing Triage Note : Chief Complaint Description 02/19/2014 14:20 CDT Chief Complaint Description 73 year old female admitted to ER with complaitns of lumbar back pain that started lasted thursday . History of Present Illness Having low back pain that is interfering with activity. Needs to accompany her to [place] tomorrow for evaluation of his newly diagnosed multiple myeloma, and wants to have less pain yet be alert so she understands all the discussions. Does not recall any specific injury, although she admits she has needed to assist him a lot more, which means pushing a wheelchair, lifting, etc. The pain began on 02/14, and has been pretty steady. She did not take anything for the pain until today at noon, when she took 2 tylenol. She denies any alteration in bowel or bladder function. She has lost 10-12 poundsover the last 2 weeks, but believes this is related to her 's three week old diagnosis. No fevers or night sweats. No radicular symptoms involving the legs. Does have a history of breast cancer with a left mastectomy in 1999. She is able to walk, get on and off carts, in and out of bed. Review of Systems Constitutional symptoms: No fever. Skin symptoms: No rash. Respiratory symptoms: No shortness of breath. Cardiovascular symptoms: No chest pain. Gastrointestinal symptoms: No abdominal pain or no constipation. Genitourinary symptoms: No dysuria or no hematuria. Musculoskeletal symptoms: Negative except as documented in HPI. Hematologic/Lymphatic symptoms: On coumadin. Additional review of systems information: All other systems reviewed and otherwise negative. Health Status Allergies: Allergic Reactions (Selected) NKA. Medications: (Selected) Documented Medications Documented albuterol: See Instructions, 1 - 2 puffs as needed, PRN: Shortness of Breath atenolol 50 mg oral tablet: 50 mg, 1 tab(s), PO, Daily hydrochlorothiazide 25 mg oral tablet: 25 mg, 1 tab(s), PO, Daily warfarin 2 mg oral tablet: See Instructions, 1 tab(s) PO Daily mon, wed, frid warfarin 3 mg oral tablet: See Instructions, 1 tab(s) PO Daily , thur,sat,sun. Immunizations: Unknown, [facility] [place] for primary care. Past Medical/ Family/ Social History Medical history: Resolved Cancer Breast Female NOS (174.9): Resolved.. Surgical history: SUBTOTAL MASTECTOMY FOR MALIGNANCY W/O CC (260) in 1998 at 59 Years.. Family history: No family history items have been selected or recorded.. Social history: Tobacco use: Denies, Occupation: Retired, Family/social situation: , Lives [facility] with her .. Problem list: All Problems Hernia Abdominal Wall / 553.20 / Confirmed Resolved: Cancer Breast Female NOS / 174.9. Physical Examination Vital Signs: Vital Signs 02/19/2014 14:20 CDT Temperature Core 37.5 DegC Peripheral Pulse Rate 82 /min Respiratory Rate 18 /min SpO2 95 % Systolic Blood Pressure 158 mmHg HI Diastolic Blood Pressure 69 mmHg , Measurements 02/19/2014 14:20 CDT Height 157 cm Height Source Stated Dosing Weight 107.00 kg NA Estimated Weight 107 kg . General: Alert and no acute distress. Skin: Warm and dry. Head: Normocephalic. Neck: Supple. Eye: Extraocular movements are intact and normal conjunctiva. Ears, nose, mouth and throat: Tympanic membranes clear and oral mucosa moist. Cardiovascular: Regular rate and rhythm and No murmur. Respiratory: Lungs are clear to auscultation and respirations are non-labored. Back: Normal alignment, Lumbar: Midline, tenderness, vertebral point tenderness at L 3 and Testing: Able to flex to 90 degrees. Musculoskeletal: No swelling. no deformity. Neurological: Alert and oriented to person, place, time, and situation. Psychiatric: Cooperative. Medical Decision Making Differential Diagnosis:Back pain, lumbar strain, degenerative joint disease, vertebral fracture, compression fracture. Documents reviewed:Emergency department nurses' notes, prior records, Synthesis. OrdersLaunch Orders Radiology: XR Lumbar Spine 2 or 3 views (Order Processing): 02/19/2014 15:07 CDT, low back pain, distant hx breast ca, Stat, Patient Bed, Once, 02/19/2014 15:07 CDT, [facility] ED, Launch Orders Laboratory: Sed Rate (Order Processing): Stat, 02/19/2014 15:08 CDT, Once CBC (includes Auto Differential) (Order Processing): Stat, 02/19/2014 15:08 CDT, Once INR/Protime (Order Processing): Stat, 02/19/2014 15:08 CDT, Once Urinalysis with Microscopic (Order Processing): Stat, 02/19/2014 15:08 CDT, Once, Clean Void Urine, Launch Orders Pharmacy: traMADol (Order Processing): 50 mg, PO, Once, Launch Orders Pharmacy: ketorolac (Order Processing): 30 mg, IM, Once. Results review:Lab results : Lab View 02/19/2014 15:34 CDT UUA Source. Hgb 15.5 g/dL Hct 47.2 % HI WBC 6.7 x10(9)/L RBC 5.39 x10(12)/L HI MCV 87.6 fL RDW 13.9 % Platelet 201 x10(9)/L Neutro Absolute 4.62 10(9)/L Lymph Absolute 1.46 x10(9)/L Gooding Absolute 0.48 x10(9)/L Eos Absolute 0.15 x10(9)/L Baso Absolute 0.03 x10(9)/L Differential? Auto PT 27.3 second(s) HI INR 2.6 NA UA Color Yellow UA Clarity Clear UA Spec Grav 1.020 UA pH 5.5 UA Protein Negative mg/dL UA Glucose Negative mg/dL UA Ketones Negative mg/dL UA Bili Negative UA Urobilinogen 0.2 mg/dL UA Blood Trace UA Nitrite Negative UA Leuk Est Negative , Lab results : Lab View 02/19/2014 15:34 CDT Sed Rate 28 mm/hr . Lumbosacral spine X-ray:Indications: low back pain, distant hx breast ca ORIGINAL REPORT - 19-Feb-2014 16:05:00 EXAM: Sp Lmb 2vw AP/Lat IMPRESSION: Superior endplate compression deformity of the L3 vertebral body is age-indeterminate. No radiographic evidence of fracture in the remainder of the lumbar spine. Low-grade anterolisthesis L4 on L5. Facet arthropathy lower lumbar spine. IVC filter. Surgical clips RUQ. . Reexamination/ Reevaluation Time: 02/19/2014 16:30:00 . Pain status: decreased, pain level 4 out of 10. Assessment: Pain improved with po tramadol and IM toradol. Impression and Plan Plan Condition: Improved. Disposition: Discharged: to home. Prescriptions: Not a candidate for NSAIDs due to chronic coumadin use. TYLENOL 1000 mg TID as baseline, using TRAMADOL prn.. Patient was given the following educational materials: Back Fracture (Compression Fracture). Limitations: Limited activity. Follow up with: See Dr. Salter in [place] in 1-2 weeks regarding your back pain.. Counseled: Patient, Family, Regarding diagnosis, Regarding diagnostic results, Regarding treatment plan, Patient indicated understanding of instructions. Electronically Signed By: CORETTA FOSTER MD On: 02/19/2014 04:52 PM Modified by and Electronically Signed by: CORETTA FOSTER MD On: 02/19/2014 03:59 PM Source: [facility] POWERCHART Document Id: [id number] Kianna Vazquez R.N. - 02/19/2014 2:24 PM CDT ED Primary Assessment Document Has Been Updated ED Primary Assessment Entered On: 02/19/2014 14:28 CDT Performed On: 02/19/2014 14:24 CDT by KIANNA VAZQUEZ RN Reason For Visit (As Of: 02/19/2014 14:28:08 CDT) Diagnoses(Active) Back pain Date: 02/19/2014 ; Diagnosis Type: Reason For Visit ; Confirmation: Complaint of ; Clinical Dx: Back pain ; Classification: Medical ; Clinical Service: Emergency medicine ; Code: PNED ; Probability: 0 ; Diagnosis Code: [id number] Triage Chief Complaint Description : see triage note Mode of Arrival ED : Private vehicle Track : Trauma Other Languages : Yemeni Is Patient Female and 13-50 no hysterectomy : No Treatments Prior to Arrival : None KIANNA VAZQUEZ RN - 02/19/2014 14:24 CDT Pain Assessment Pain Symptoms : Yes KIANNA VAZQUEZ RN - 02/19/2014 14:24 CDT Respiratory Airway : Patent Respirations : Unlabored Respiratory Pattern : Regular KIANNA VAZQUEZ RN - 02/19/2014 14:24 CDT Cardiovascular Heart Rhythm : Regular Skin Color : Normal for ethnicity Skin Description : Dry Skin Temperature : Warm KIANNA VAZQUEZ RN - 02/19/2014 14:24 CDT Neurological Last Well Time Known : Not applicable Level of Consciousness : Alert Orientation : Oriented x 3 Characteristics of Speech : Appropriate for age KIANNA VAZQUEZ RN - 02/19/2014 14:24 CDT ED Psychosocial Affect/Behavior : Calm Domestic Abuse Concerns : None KIANNA VAZQUEZ RN - 02/19/2014 14:24 CDT Gastrointestinal Nutrition ED : Inadequate Nutrition ED Freetext : state lost 12 in past 2 weeks. increased stress KIANNA VAZQUEZ RN - 02/19/2014 14:24 CDT Musculoskeletal Fall Prevention Education Provided : NA KIANNA VAZQUEZ RN - 02/19/2014 14:24 CDT Social Habits Tobacco Use/Currently Using : No Smoking Status : Never smoker KIANNA VAZQUEZ RN - 02/19/2014 14:24 CDT Alcohol Use Grid Alcohol Use : No KIANNA VAZQUEZ RN - 02/19/2014 14:24 CDT Recreational Drug Use Grid Drug Use : None KIANNA VAZQUEZ RN - 02/19/2014 14:24 CDT Source: [facility] [employer] Document Id: [id number] CDT!41 Kianna Vazquez R.N. - 02/19/2014 2:20 PM CDT ED Triage Assessment Document Has Been Updated ED Triage Assessment Entered On: 02/19/2014 14:24 CDT Performed On: 02/19/2014 14:20 CDT by KIANNA VAZQUEZ RN Reason For Visit (As Of: 02/19/2014 14:24:06 CDT) Diagnoses(Active) Back pain Date: 02/19/2014 ; Diagnosis Type: Reason For Visit ; Confirmation: Complaint of ; Clinical Dx: Back pain ; Classification: Medical ; Clinical Service: Emergency medicine ; Code: PNED ; Probability: 0 ; Diagnosis Code: [id number] Triage Chief Complaint Description : 73 year old female admitted to ER with complaitns of lumbar back pain that started lasted thursday Information Given By : Patient Accompanied By : Daughter Mode of Arrival ED : Private vehicle Track : Trauma Other Languages : Yemeni Vital Signs Assessed : Yes Is Patient Female and 13-50 no hysterectomy : No Treatments Prior to Arrival : None KIANNA VAZQUEZ RN - 02/19/2014 14:20 CDT Vital Signs Temperature Core : 37.5 DegC(Converted to: 99.5 DegF) Peripheral Pulse Rate : 82 /min Respiratory Rate : 18 /min Systolic Blood Pressure : 158 mmHg (HI) Diastolic Blood Pressure : 69 mmHg NIBP Mean : 99 mmHg BP Location : Left upper extremity SpO2 : 95 % Oxygen Therapy : Room air Height : 157 cm(Converted to: 5 ft 2 inch(es)) Height Source : Stated Estimated Weight : 107 kg Estimated Weight Conversion to Pounds : 235.4 lb KIANNA VAZQUEZ RN - 02/19/2014 14:20 CDT Pain Assessment Pain Symptoms : Yes KIANNA VAZQUEZ RN - 02/19/2014 14:20 CDT Pain Pain Assessment Grid Pain 1 Location : Lower back Laterality : Bilateral Intensity : 8 KIANNA VAZQUEZ RN - 02/19/2014 14:20 CDT ED Physician Notification Time ED Physician Notification Time : 02/19/2014 14:23 CDT KIANNA VAZQUEZ RN - 02/19/2014 14:20 CDT LORI LORI Level 1 : No LORI Level 2 : No LORI Level 3 : Many Vital Signs LORI : No KIANNA VAZQUEZ RN - 02/19/2014 14:20 CDT DCP GENERIC CODE Tracking Acuity : 3 -Urgent Tracking Group : [facility] ED KIANNA VAZQUEZ RN - 02/19/2014 14:20 CDT Source: [employer] Document Id: [id number] CDT!43 documented in this encounter Miscellaneous Notes Miscellaneous - Kianna Vazquez R.N. - 02/19/2014 4:23 PM CDT Valuables/Belongings Valuables/Belongings Entered On: 02/19/2014 16:23 CDT Performed On: 02/19/2014 16:23 CDT by KIANNA VAZQUEZ RN Valuables/Belongings Belongings Sent Home With : patient KIANNA VAZQUEZ RN - 02/19/2014 16:23 CDT Source: [employer] Document Id: [id number] CDT!3 Miscellaneous - Kianna Vazquez R.N. - 02/19/2014 2:12 PM CDT Facility Charge Ticket 2.0 11.0 DX Facility Charge Ticket 2.0 11.0 DX Entered On: 02/19/2014 16:23 CDT Performed On: 02/19/2014 14:12 CDT by KIANNA VAZQUEZ RN Facility Charge Ticket 2.0 11.0 DX ED Other Charges : Standard ED Encounter TVL Level Translated RTF : Back pain TVL:3 TVL Level for Facility Charge Ticket : Level 3 Arrival Mode Calc : 1 Mode of Arrival ED : Private vehicle [facility] Mode of Arrival Interpreted : Standard [facility] Process Management : None Order Management RTF : Laboratory Urinalysis with Microscopic,02/19/14 15:08,CORETTA FOSTER MD Completed INR/Protime,02/19/14 15:08,CORETTA FOSTER MD Completed CBC (includes Auto Differential),02/19/14 15:08,CORETTA FOSTER MD Completed Automated Diff-5 Part,02/19/14 15:37,CORETTA FOSTER MD Completed Sed Rate,02/19/14 15:08,CORETTA FOSTER MD Ordered Xray XR Lumbar Spine 2 or 3 views,02/19/14 15:07,CORETTA FOSTER MD Completed [facility] Order Management : Lab tests, Xray - plain films 30 Minutes Critical Care : No Nursing Notes RTF : Triage Forms ED Triage Assessment,02/19/14 14:20,KIANNA VAZQUEZ RN Nursing Notes ED Primary Assessment,02/19/14 14:24,KIANNA VAZQUEZ RN ED Nurse Reassess,02/19/14 16:11,KIANNA VAZQUEZ RN ED Pain Assessment,02/19/14 16:22,KIANNA VAZQUEZ RN [facility] Nursing Assessment : Triage and 1-2 nursing assessments [facility] Disposition : Discharge [facility] Total Points with Diagnosis Control : 7 [facility] Visit Level : 22825 Level 3 Treatments Prior to Arrival : None KIANNA VAZQUEZ RN - 02/19/2014 16:23 CDT [facility] Document Id: [id number] CDT!18 documented in this encounter Plan of Treatment Upcoming Encounters Date Type Specialty Care Team Description 04/09/2022 Office Visit Family Medicine Florentino Salmon M.D. [address], [place] [phone] (Wo rk) documented as of this encounter Procedures Procedure Name Priority Date/Time Associated Comments Diagnosis AUTOMATED Routine 02/19/2014 3:34 PM Results f or this DIFFERENTIAL, B CDT procedure ar e in the results section. URINALYSIS WITH Routine 02/19/2014 3:34 PM Result s for this MICROSCOPIC CDT procedure are i n the results section. SEDIMENTATION RATE, B Routine 02/19/2014 3:34 PM Results for this CDT procedure are i n the results section. PROTHROMBIN TIME (PT), Routine 02/19/2014 3:34 PM Results for this P CDT procedure are i n the results section. CBC WITH DIFFERENTIAL, Routine 02/19/2014 3:34 PM Results for this B CDT procedure are i n the results section. documented in this encounter Results Automated Differential (02/19/2014 3:34 PM CDT) P athologist Signature Absolute 4.62 1.70 - POWERCHART Neutrophils 7.00 109L Lymphocytes 1.46 0.90 - POWERCHART 2.90 X109L Monocytes 0.48 0.30 - POWERCHART 0.90 X109L Eosinophils 0.15 0.05 - POWERCHART 0.50 X109L Absolute 0.03 0.00 - POWERCHART Basophil 0.30 X109L Specimen Anatomical Collection Method Collection Time Receive d Time (Source) Location / / Volume Laterality Blood 02/19/2014 3:34 PM 4 3:34 CDT PM CDT Coretta Foster M.D. LAB BLOOD ADD-ON Performing Organization Address City/State/ZIP Code Phon e Number POWERCHART Sedimentation Rate (02/19/2014 3:34 PM CDT) Analysis Performed At Patho logist Time Signature Sedimentation 28 0 - 30 POWERCHART Rate, B MMHR Specimen (Source) Anatomical Collection Method Collection Time Re ceived Time Location / / Volume Laterality Blood 02/19/2014 3:34 PM CDT Coretta Foster M.D. LAB BLOOD ADD-ON Performing Organization Address [facility] Phon e Number POWERCHART (ABNORMAL) CBC with Differential (02/19/2014 3:34 PM CDT) [facility] Method Time Signature Leukocytes 6.7 3.4 - 10.5 POWERCHART X109L Erythrocytes 5.39 (H) 3.90 - POWERCHART 5.03 E1842Y Hemoglobin 15.5 12.0 - POWERCHART 15.5 GDL Hematocrit 47.2 (H) 34.9 - POWERCHART 44.5 MCV 87.6 82.0 - POWERCHART 98.0 FL HX RDW 13.9 11.9 - POWERCHART 15.5 Platelet Count 201 150 - 450 POWERCHART X109L HXDifferential? Auto POWERCHART Specimen (Source) Anatomical Collection Method Collection Time Re ceived Time Location / / Volume Laterality Blood 02/19/2014 3:34 PM CDT Coretta Foster M.D. LAB BLOOD ADD-ON Performing Organization Address [facility] Phon e Number POWERCHART (ABNORMAL) PT (Prothrombin Time) with INR (02/19/2014 3:34 PM CDT) [facility] Method Time Signature INR 2.6 POWERCHART Prothrombin 27.3 (H) 12.1 - 14.3 POWERCHART Time, P SECONDS Specimen (Source) Anatomical Collection Method Collection Time Re ceived Time Location / / Volume Laterality Blood 02/19/2014 3:34 PM CDT Coretta Foster M.D. LAB BLOOD ADD-ON Performing Organization Address [facility] Phon e Number POWERCHART (ABNORMAL) Urinalysis, Complete, Includes Microscopic (02/19/2014 3:34 PM CDT) Component Value Ref Test Analysis Performed At [facility] [employer] Range Method Time Signature Source Clean Void POWERCHART Urine HXUr Color Yellow POWERCHART Clarity Clear POWERCHART Glucose Negative MGDL POWERCHART HXBILIRUBIN Negative POWERCHART Ketones, QL(U) Negative MGDL POWERCHART Specific 1.020 POWERCHART [place], POCT, U pH, POCT, Urine 5.5 POWERCHART Protein, Ur, Dip Negative MGDL POWERCHART Urobilinogen 0.2 MGDL POWERCHART HXNITRITE Negative POWERCHART HXBLOOD Trace (A) POWERCHART Leukocyte Negative POWERCHART Esterase HXUR WBC. Occ-3 HPF POWERCHART HXUR RBC. Occ-2 HPF POWERCHART Casts, Hyaline Occasional (A) LPF POWERCHART Squamous Occ-3 HPF POWERCHART Epithelial HXUR Bacteria, None Seen POWERCHART Specimen (Source) Anatomical Collection Method Collection Time Re ceived Time Location / / Volume Laterality Urine 02/19/2014 3:34 PM CDT Coretta Foster M.D. LAB URINE ORDERABLES Performing Organization Address City/State/ZIP Code Phon e Number POWERCHART documented in this encounter Visit Diagnoses Not on filedocumented in this encounter
--- OUTSIDE RECORDS SUMMARY | 2022-04-02 12:52 | XMS_ITS | Encounter Summary ---
:1940 Author Organization [facility] Address [address] [place] [address] Care Team Providers Name Role Phone Unavailable Primary Care Provider Unavailable Encounter Details Date Type Department Care Team Description 11/06/2021 Clinical Communication Department of Florentino Salmon Dermatology wy Lisy Rocha [place], [place] [address] [place] [phone] Social History Tobacco Use Types Packs/Day Years Used Date Smoking Tobacco: Never Sex Assigned at Date Recorded Not on file documented as of this encounter Miscellaneous Notes Telephone Encounter - Karin Encinas R.MElisabeth - 11/06/2021 8:28 AM CDT I called patient and talked to her. I offered a nurse visit she declined at this time but she is ok to wait. Telephone Encounter - Risa Jameson - 11/06/2021 8:14 AM CDT Reached out to patient to reschedule appointment as the provider is out. Currently scheduling out toAug. Patient stated that she was put on new medication to try. She would like a nurse to reach out to her to talk about how the medication is going. She stated that she has a few follow up questions. Pl ease advise and please advise if the patient should be scheduled earlier. documented in this encounter Plan of Treatment Upcoming Encounters Date Type Specialty Care Team Description 04/09/2022 Office Visit Family Medicine Florentino Salmon M.D. [address] [phone] (Wo rk) documented as of this encounter Visit Diagnoses Not on filedocumented in this encounter
--- OUTSIDE RECORDS SUMMARY | 2022-04-02 12:52 | XMS_ITS | Encounter Summary ---
:1940 Author Organization [facility] Address [address] [place] [address] Care Team Providers Name Role Phone Unavailable Primary Care Provider Unavailable Encounter Details Date Type Department Care Team Description 05/10/2008 - Hospital Encounter HX RST UNIT 8-2 05/14/2008 ORTHOPEDICS Social History Tobacco Use Types Packs/Day Years Used Date Smoking Tobacco: Never Assessed Sex Assigned at Date Recorded Not on file documented as of this encounter Plan of Treatment Upcoming Encounters Date Type Specialty Care Team Description 04/09/2022 Office Visit Family Medicine Florentino Salmon M.D. [address] [place], [place] [phone] (Wo rk) documented as of this encounter Procedures Procedure Name Priority Date/Time Associated Comments Diagnosis US EXTREMITY VEINS Routine 05/11/2008 7:43 PM Res ults for this MANUAL TESTER procedure are i n the results section. DX CHEST PORTABLE 1 Routine 05/11/2008 11:30 AM R esults for this VIEW MANUAL TESTER procedure are i n the results section. ECG Routine 05/11/2008 10:24 AM Results for this MANUAL TESTER procedure are i n the results section. DX KNEE UNILATERAL 2 Routine 05/10/2008 9:53 AM R esults for this VIEWS MANUAL TESTER procedure are i n the results section. documented in this encounter Results US Extremity Veins (05/11/2008 7:43 PM MANUAL TESTER) Anatomical Region Laterality Modality Vascular, Upper Extremity, Lower Extremity Ultrasound Specimen (Source) Anatomical Collection Method Collection Time Re ceived Time Location / / Volume Laterality 05/11/2008 7:43 PM MANUAL TESTER Narrative 05/12/2008 10:17 AM MANUAL TESTER 11-May-2008 19:43:00 ??Exam: US Extremity Veins Complete Indications: swelling ORIGINAL REPORT - 11-May-2008 21:20:00 US Extremity Veins Complete with color a nd spectral Doppler analysis Ultrasound examination of the bilateral lower extremities with Doppler and compression views. ?? The right common femoral, femoral, popli teal, and segmentally visualized deep veins of the calf are negative for deep venous thrombosis. The left common femoral and proximal femoral vein the are negativ e for DVT. Distal evaluation of the left lower extremity was not performed due to patient's overlying cast material. Electronically signed by: ?? Tenzin [id number] 11-May-2008 21:20 I have reviewed the films/images and agr ee with the above interpretation. Electronically signed by: ?? Silvia Gonzalez M.D. [phone] 12-May-2008 10:17 Procedure Note Moris Gonzalez M.D. - 08/24/2017For matting of this note might be different from the original. 11-May-2008 19:43:00 Exam: US Extremity Veins Complete Indications: swelling ORIGINAL REPORT - 11-May-2008 21:20:00 US Extremity Veins Complete with color a nd spectral Doppler analysis Ultrasound examination of the bilateral lower extremities with Doppler and compression views. The right common femoral, femoral, popli teal, and segmentally visualized deep veins of the calf are negative for deep venous thrombosis. The left common femoral and proximal femoral vein the are negative for DVT. Distal evaluation of the left lower extremity w as not performed due to patient's overlying cast material. Electronically signed by: Tenzin [id number] 11-May-2008 21:20 I have reviewed the films/images and agr ee with the above interpretation. Electronically signed by: Silvia Gonzalez M.D. [phone] 12-May-2008 10:17 [facility] [employer] US PROCEDURES DX Chest Portable 1 View (05/11/2008 11:30 AM MANUAL TESTER) Anatomical Region Laterality Modality Chest N/A Radiographic Imaging Specimen (Source) Anatomical Collection Method Collection Time Re ceived Time Location / / Volume Laterality 05/11/2008 11:30 AM MANUAL TESTER Narrative 05/11/2008 11:46 AM MANUAL TESTER 11-May-2008 11:30:00 ??Exam: Portable-Chest Indications: cp/sob ORIGINAL REPORT - 11-May-2008 11:46:00 Chest; 1 view: Cardiac enlargement. Slight prominence o f the upper lobe pulmonary veins. Since 04-28-08, mild infiltrate or atelectasis has developed in the base of the left lower lobe. Electronically signed by: ?? Daiz Juarez MD. ??[phone] 11-May-20 08 11:46 Procedure Note Duc Juarez M.D. - 8 11-May-2008 11:30:00 Exam: Portable-Ches t Indications: cp/sob ORIGINAL REPORT - 11-May-2008 11:46:00 Chest; 1 view: Cardiac enlargement. Slight prominence o f the upper lobe pulmonary veins. Since 04-28-08, mild infiltrate or atelectasis has developed in the base of the left lower lobe. Electronically signed by: Diaz Juarez MD. [phone] 11-May-2008 11:46 Humberto Xiao M.D. IMG DIAGNOSTIC IMAGING [facility] ECG 12 Lead (05/11/2008 10:24 AM [facility] [[email or web address] Specimen (Source) Anatomical Collection Method Collection Time Re ceived Time Location / / Volume Laterality 05/11/2008 10:24 AM [facility] RADIOLOGY SYSTEM - 05/11/2008 10:43 AM [facility] [[email or web address]] [id number] 10:24 VENTRICULAR RATE 77 Normal sinus rhythm Normal ECG When compared with ECG of 28-APR-2008 13 :31, No significant change was found [id number]^KENY ??^WALTER Procedure Note Walter Salas M.D. - 08/17/2017For matting of this note might be different from the original. [id number] 10:24 VENTRICULAR RATE 77 Normal sinus rhythm Normal ECG When compared with ECG of 28-APR-2008 13 :31, No significant change was found [id number]^KENY RODRIGUEZ^WALTER Jonathan Vo M.D. ECG ORDERABLES Performing Organization Address City/State/ZIP Code Phon e Number HX [facility] [address] [place] [address], U SA DX Knee 2 Views (05/10/2008 9:53 AM MANUAL TESTER) Anatomical Region Laterality Modality Lower Extremity, Knee N/A Radiographic Imagi ng Specimen (Source) Anatomical Collection Method Collection Time Re ceived Time Location / / Volume Laterality 05/10/2008 9:53 AM MANUAL TESTER Narrative 05/10/2008 9:54 AM MANUAL TESTER 10-May-2008 09:53:00 ??Exam: L Knee 2vw AP/Lat Indications: INTRA OP: degenerative join t disease, left TKA check FINAL hardware placement ORIGINAL REPORT - 10-May-2008 09:54:00 Left Knee 2vw AP/Lat: Intraoperative films taken during left T KA. Electronically signed by: ?? P. A. ??Nader Hopson [phone] 10-May-2008 0 9:54 Procedure Note Latha Doe M.D. - 08/24/2017Forma tting of this note might be different from the original. 10-May-2008 09:53:00 Exam: L Knee 2vw AP /Lat Indications: INTRA OP: degenerative join t disease, left TKA check FINAL hardware placement ORIGINAL REPORT - 10-May-2008 09:54:00 Left Knee 2vw AP/Lat: Intraoperative films taken during left T KA. Electronically signed by: Carla Doe M.D [phone] 10-May-2008 09: 54 [facility] DIAGNOSTIC IMAGING PROCE DURES documented in this encounter Visit Diagnoses Not on filedocumented in this encounter
--- OUTSIDE RECORDS SUMMARY | 2022-04-02 12:52 | XMS_ITS | Encounter Summary ---
:1940 Author Organization [facility] Address [address] [place] [address] Care Team Providers Name Role Phone Unavailable Primary Care Provider Unavailable Encounter Details Date Type Department Care Team Description 04/15/2013 Hospital Encounter HX NO MAPPING Social History Tobacco Use Types Packs/Day Years Used Date Smoking Tobacco: Never Assessed Sex Assigned at Date Recorded Not on file documented as of this encounter Plan of Treatment Upcoming Encounters Date Type Specialty Care Team Description 04/09/2022 Office Visit Family Medicine Florentino Salmon M.D. [address] [place], [place] [phone] (Wo rk) documented as of this encounter Visit Diagnoses Not on filedocumented in this encounter
--- OUTSIDE RECORDS SUMMARY | 2022-04-02 12:52 | XMS_ITS | Encounter Summary ---
:1940 Author Organization [facility] Address [address] [place] [address] Care Team Providers Name Role Phone Unavailable Primary Care Provider Unavailable Encounter Details Date Type Department Care Team Description 06/08/2013 Hospital Encounter HX RST [facility] EXERCISE LAB Poll Nazanin jones M.D. [address] [place] [phone] (Wo rk) Social History Tobacco Use Types Packs/Day Years Used Date Smoking Tobacco: Never Assessed Sex Assigned at Date Recorded Not on file documented as of this encounter Last Filed Vital Signs Vital Sign Reading Time Taken Comments Blood Pressure 125/68 06/08/2013 11:54 AM CHILD MONITOR Pulse 85 06/08/2013 11:54 AM CHILD MONITOR Temperature - - Respiratory Rate - - Oxygen Saturation - - Inhaled Oxygen Concentration - - Weight 111 kg (244 lb 7.8 oz) 06/08/2013 11:54 AM CHILD MONITOR Height 154.4 cm (5' 0.79) 06/08/2013 11:54 AM CHILD MONITOR Body Mass Index 46.52 06/08/2013 11:54 AM CHILD MONITOR documented in this encounter Medications at Time [...] as directed. documented as of this encounter Plan of Treatment Upcoming Encounters Date Type Specialty Care Team Description 04/09/2022 Office Visit Family Medicine Florentino Salmon M.D. [address], [place] [phone] (Wo rk) documented as of this encounter Procedures Procedure Name Priority Date/Time Associated Diagnosis Comme nts EXERCISE ECG Routine 06/08/2013 8:36 AM CHILD MONITOR 5-HYDROXYINDOLEACET Routine 06/08/2013 7:00 AM Re sults for this IC ACID, 24 HR U CHILD MONITOR procedure a re in the results section. METANEPHRINES, Routine 06/08/2013 7:00 AM Results for this FRACTIONATED, 24H, CHILD MONITOR procedure are in U the results section. documented in this encounter Results Exercise ECG (06/08/2013 8:36 AM CHILD MONITOR) Specimen (Source) Anatomical Collection Method Collection Time Re ceived Time Location / / Volume Laterality 06/08/2013 8:36 AM CHILD MONITOR Tee Rodrigues M.D., Ph.D. CV STRESS PROCEDURES Performing Organization Address City/State/ZIP Code Phon e Number HX JORDANA CONVERSION Metanephrines, Fractionated, 24 Hour, Urine (06/08/2013 7:00 AM CHILD MONITOR) Analysis Performed At Patho logist Time Signature Total [phone] [facility] Metanephrines, ([facility] - U delvin); [facility] <1300 CAMPUS ([facility] delvin) MCG/24 H Collection 24 H [facility] Duration LABORATORIES - [facility] Volume [address] [facility] [place] Metanephrine, U 37 30-180 [facility] ([facility] - delvin); <400 [facility] ([facility] delvin) MCG/24 H Normet[facility]phrine 380 148-560 [facility] , U ([facility] - delvin); <900 [facility] ([facility] delvin) MCG/24 H Specimen Anatomical Collection Method Collection Time Receive d Time (Source) Location / / Volume Laterality 06/08/2013 7:00 AM 4 7:00 CHILD MONITOR AM CHILD MONITOR Peggy Olsen M.D. LAB URINE ORDERABLES Performing Organization Address City/State/ZIP Code Phon e Number [facility]ATORIES - [address] [place] [phone] [facility] 5-Hydroxyindoleacetic Acid (5-HIAA), 24 Hour, Urine (06/08/2013 7:00 AM CHILD MONITOR) Analysis Performed At Patho logist Time Signature Urine Volume 1626 ML [facility] [place] 5-Hydroxyindole 2.4 <=8.0 [facility] acetic Acid, U MG/24 H [facility] Collection 24 H [facility] Duration [facility] Specimen Anatomical Collection Method Collection Time Receive d Time (Source) Location / / Volume Laterality 06/08/2013 7:00 AM 4 7:00 CHILD MONITOR AM CHILD MONITOR Peggy Olsen M.D. LAB URINE ORDERABLES Performing Organization Address City/State/ZIP Code Phon e Number [facility]IES - [address] [place] [address] [facility] documented in this encounter Visit Diagnoses Not on filedocumented in this encounter
--- OUTSIDE RECORDS SUMMARY | 2022-04-02 12:53 | XMS_ITS | Clinical Summary ---
:1940 Author Organization [facility] [place] [address] Care Team Providers Name Role Phone Gasper Ludwig MD Primary Care Provider Allergies Active Allergy Reactions Severity Noted Date Comments Fluconazole 08/06/2006 per paper chart sick Poly-Ureaurethane Shortness Of Breath Low 04/30/2016 Sulfa (Sulfonamide *Unknown High 08/06/2006 Other ervin ction(s): Antibiotics) nausea Sulfasalazine Nausea Only 11/13/2015 Medications Medication Sig Dispensed Refills Start End Status Date Date acetaminophen (TYLENOL Take 1 tablet by 0 12/28/19 Active EXTRA STRGTH) 500 mg mouth every 6 16 tablet hours if needed. Max acetaminophen dose: 4000mg in 24 hrs. clotrimazole Apply topically 45 g 0 05/24/20 A ctive (LOTRIMIN) 1 % to affected 19 creamIndications: area(s) 2 times Intertrigo daily. fluorouracil 5% Apply topically 0 09/05/19 Active topical (EFUDEX) 5 % to affected 22 cream area(s). hydroCHLOROthiazide TAKE ONE TABLET 90 Tablet 3 01/01/20 Active (HCTZ) 25 mg BY MOUTH EVERY 22 tabletIndications: DAY Essential hypertension atenoloL (TENORMIN) 50 TAKE ONE TABLET 90 Tablet 3 01/01/20 Active mg tabletIndications: BY MOUTH EVERY 22 Essential hypertension DAY gabapentin (NEURONTIN) Take 2 Capsules 540 Capsule 3 01/01/20 Active 100 mg (200 mg) by 22 capsuleIndications: mouth 3 times Foraminal stenosis of daily. cervical region warfarin (COUMADIN) 2 Take by mouth 1 80 Tablet 0 03/24/20 Active mg tabletIndications: mg (2 mg x 0.5) 22 History of deep venous every Tue, Fri; thrombosis (DVT) of 2 mg (2 mg x 1) distal vein of left all other days lower extremity, in the evening Anticoagulation OR as directed monitoring, INR range 2-3, History of pulmonary embolism atorvastatin (LIPITOR) TAKE ONE TABLET 90 Tablet 0 03/23/20 Active 20 mg BY MOUTH ONCE 22 tabletIndications: DAILY Hyperlipidemia, unspecified hyperlipidemia type atorvastatin (LIPITOR) Take 1 Tablet 90 Tablet 3 12/07/19/ Discontinued 20 mg (20 mg) by mouth 2021 tabletIndications: once daily. Hyperlipidemia, unspecified hyperlipidemia type warfarin (COUMADIN) 2 Take by mouth 1 80 Tablet 1 10/02/19/ Discontinued mg tabletIndications: mg (2 mg x 0.5) 22 20 22 History of deep venous every Tue, Fri; thrombosis (DVT) of 2 mg (2 mg x 1) distal vein of left all other days lower extremity, OR as directed. Anticoagulation monitoring, INR range 2-3, History of pulmonary embolism Active Problems Problem Noted Date Pulmonary embolism on right 06/10/2019 Body mass index (BMI) 45.0-49.9, adult 06/10/2019 Osteoporosis 06/10/2019 Overview: Previously on fosamax. Elected to not tr eat further 05/2019. 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 evaluation by Dr. Blackman. did not use tamoxifen because of history of PE Unspecified asthma(493.90) 08/06/2006 Unspecified essential hypertension 05/26/2006 Resolved Problems Problem Noted Date Resolved Date History of pulmonary embolism 09/06/2018 10/25/2020 Chest pain 05/10/2015 05/24/2019 Abnormal cardiovascular stress test 05/10/201504/26 Overview: - 04/11/15: There is a small area of mil d ischemia in the apical anterior wall. Normal left ventricular ejection fraction of approximately 65 percent Fracture of right toe 05/10/2015 10/25/2020 History of breast cancer 04/30/2015 05/24/2019 History of pulmonary emphysema 11/23/2014 Overview: 11-09-2007 Nummular eczema 07/21/2012 05/24/2019 Paresthesia 05/21/2010 05/24/2019 Unspecified tinnitus 05/21/2009 05/24/2019 Osteopenia 01/16/2009 06/10/2019 Overview: Last Dexa 2017 - repeat recommended in 2 years Routine general medical examination at [facility] 01/03/2009 05/24/2019 Overview: Colonoscopy 2004, no polyps.path normal. Ok to recheck in 10 years. 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 11/25/2007 11/02/2010 Overview: INR goal range 2.0-3.0 Hemorrhage of rectum and anus 03/08/2007 01/03/2009 Osteoarthrosis, unspecified whether generalized or localized , 03/08/2007 05/24/2019 unspecified site Encounters Date Type Specialty Care Team Description 03/21/2022 Refill Gasper Ludwig Refill Request MD Darryl (Warfarin, Ator vastatin) 03/11/2022 Orders Only Lab[facility] 03/11/2022 Anticoagulation 1, [facility]far[facility] 03/11/2022 Travel 02/07/2022 Nurse/Clinic Staff Only Immu nization/Injection (Flu shot) 02/07/2022 Orders Only Lab[facility] 02/07/2022 Anticoagulation 1, [facility] ([facility]farin) Clinic 02/07/2022 Travel 01/31/2022 Telephone Gasper Ludwig Anticoagulatio n (Annual MD Darryl re-enrollment ) 01/10/2022 Orders Only Lab[facility] 01/10/2022 Anticoagulation 1, [facility] (warfarin) Clinic 01/10/2022 Travel 12/31/2021 Office Visit Gasper Ludwig Medicare PETROS Andrews MD (subsequent) Vi sit (81 yr old female) 12/31/2021 Travel from Last 3 Months Immunizations Name Administration Dates Next Due AMB Influenza, IIV3 (Age >=3 03/20/2010 years)(Flu Clinic Only) AMB Influenza, IIV4 PF (=>6 mos 02/22/2019 Flulaval,Fluzone Fluarix)(Flu Clinic Only) Amb Influenza, Inact (High-dose) (Flu 02/21/2016 Clinic Only) Amb Influenza, Inactivated AIIV4 (Age 0902/17/2020 65+ Years) Preserv Free COVID-19 vaccine (Clearhaus 12/31/2021 30mcg/0.3mL) 12YO+ ANT-SUCROSE PF, MDV COVID-19 vaccine ([facility]haus 02/04/2021, 07/31/2020, 30mcg/0.3mL) PF, MDV DT (Age < 7 years) 06/23/1988, 06/14/1987 HepA-HepB (Twinrix) 07/02/2007, 02/22/2007, 09/08/2006, 08/07/2006 Hepatitis A, Unspecified 08/07/2006 Hepatitis B, Unspecified 08/07/2006 Influenza A (H1N1), Inactivated 07/02/2009 Influenza A (H1N1), Inactivated (Age 0207/02/2009 >=3 Years) Influenza Virus, Unspecified 02/20/2014, 01/24/2013, 008, 02/23/2008 Influenza, High-dose Inactivated 01/24/2015, 02/09/2014, 06/2012 Influenza, IIV3 (Age 6-35 mos) 02/27/2011, 04/17/2009 Influenza, IIV3 (Age >=3 years) 01/31/2013, 02/04/2012, 10/2010, 04/17/2009, 03/06/2008, 04/07/2007, 03/24/2006, 03/13/2005, 03/04/2004, 03/27/2003 Influenza, Inactivated AIIV4 (Age 65+ 02/07/2022, 01/29/2021 Years) Preserv Free Influenza, Inactivated IIV3 (Age 65+ 02/09/2018, 02/06/2017 Years) Preserv Free Pneumococcal Poly,23-Valent 09/08/2006, 05/25/2004, 03/17/19 98 (Pneumovax) Pneumococcal conj 13-Valent (Prevnar 01/24/2015 13) TD, UNSPECIFIED 05/25/2005 Td (Age >=7 Years) 08/07/2006, 05/25/2005, 05/05/1997 Td, Preservative Free (age >= 7 08/07/2006, 05/05/1997 Years) Tdap 07/21/2012 Typhoid (injectable) 02/04/2012, 08/13/2009, 08/07/2006 Zoster (Zostavax-ZVL, live) 11/04/2010, 02/07/2009 Family History Medical History Relation Name Comments Cancer-breast Daughter Heart Disease Mother Cancer-ovarian No Family History Relation Name Status Comments Daughter Mother Social History Tobacco Use Types Packs/Day Years Used Date Never Smoker Smokeless Tobacco: Never Used Tobacco Cessation: Counseling Given: Yes Alcohol Use Standard Drinks/Week Comments No 0 (1 standard drink = 0.6 oz pure alcoho l) Sex Assigned at Date Recorded Not on file COVID-19 Exposure Response Date Recorded In the last 10 days, have you been in contact No / Unsure 03/11/2022 12:56 PM CDT with someone who was confirmed or suspected to have Coronavirus/COVID-19? 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 Oxygen Saturation 97% 12/31/2021 10:54 AM CDT Inhaled Oxygen Concentration - - Weight 109.5 kg (241 lb 6.4 oz) 12/31/2021 10:54 AM CDT Height 152.5 cm (5' 0.04) 12/31/2021 10:54 AM CDT Body Mass Index 47.08 12/31/2021 10:54 AM CDT Plan of Treatment Upcoming Encounters Date Type Specialty Care Team Description 04/22/2022 Orders Only Lab[facility] Maintenance Due Date Last Done Comments Zoster (shingles) series for age 0812/30/2010 11/04/2010, 50+ (1 of 2) COVID-19 vaccine series (5 - 02/25/2022 12/31/2021, 021, Booster for Pfizer series) 07/31/2020, Additiona l history exists Tetanus booster 07/21/2022 07/21/2012, 08/07/2006, 08/07/2006, Additional history exists BMI (ht and wt on same day) for 12/31/2022 12/31/2021, 12/0 05/2020, age 18+ 03/18/2021, Additional history exists Depression screening for age 12+ 12/31/2022 12/31/2021, 12/2021, 10/25/2020, Additional history exists Medicare Wellness for age 65+ 12/31/2022 12/31/2021, 2020, 05/24/2019, Additional history exists Tdap Completed 07/21/2012 Pneumococcal series for age 65+ Completed 01/24/2015, 08/23, 05/25/2004, Additional history exists DEXA/DXA scan for age 65+ Completed 05/24/2019, 02/10/2017 , 01/04/2009, Additional history exists Influenza for age 65+ Completed 02/07/2022, 01/29/2021, 02/17/2020, Additional history exists Procedures Procedure Name Priority Date/Time Associated Diagnosis Comme nts INR,POCT Routine 03/11/2022 1:09 PM History of deep venous Results for this CDT thrombosis (DVT) of procedur e are in distal vein of left the resu lts lower extremity section. Anticoagulation monitoring, INR range 2-3 INR,POCT Routine 02/07/2022 11:18 History of deep venous R esults for this AM CDT thrombosis (DVT) of procedur e are in distal vein of left the resu lts lower extremity section. Anticoagulation monitoring, INR range 2-3 INR,POCT Routine 01/10/2022 10:35 History of deep venous R esults for this AM CDT thrombosis (DVT) of procedur e are in distal vein of left the resu lts lower extremity section. Anticoagulation monitoring, INR range 2-3 LIPID PANEL Routine 12/31/2021 11:42 Hyperlipidemia, Results for this AM CDT unspecified procedure are i n hyperlipidemia type the resu lts section. BASIC METABOLIC Routine 12/31/2021 11:42 Essential hypertensio n Results for this PANEL AM CDT procedure are i n the results section. from Last 3 Months Results (ABNORMAL) INR,POCT (03/11/2022 1:09 PM CDT)Only the most recent of3 results within the time period is included. athologist Signature INR 2.3 (H) <1.3 03/11/2022 [facility] 1:15 PM CDT [facility] Specimen Anatomical Collection Method Collection Time Receive d Time (Source) Location / / Volume Laterality Blood BLOOD SPECIMEN / 03/11/2022 1:09 PM 03/11 1:15 Unknown CDT PM CDT Narrative [facility] - 2021 1:15 PM CDT ?Therapeutic Range 2.0-3.0 for most anticoagulated patients 2.5-3.5 or 4.0 for high risk patients Gasper Ludwig MD LABORATORY Performing Organization Address City/State/ZIP Code Phon e Number [facility] [address] [place] [address] LIPID PANEL (12/31/2021 11:42 AM CDT) Patholo gist Method Time Signature CHOLESTEROL,TOTAL 154 100 - 199 01/01/2022 [facility] mg/dL 12:51 AM CDT [facility]AT[facility] TRIGLYCERIDES 136 <150 01/01/2022 [facility] mg/dL 12:51 AM CDT [facility] HDL CHOLESTEROL 56 >40 mg/dL 01/01/2022 [facility] 12:51 AM CDT [facility] NON-HDL 98 <145 01/01/2022 [facility] CHOLESTEROL mg/dl 12:51 AM CDT [facility] CHOL/HDL RATIO 2.75 <4.50 01/01/2022 [facility] 12:51 AM CDT [facility] LDL CHOLESTEROL 71 <=130 01/01/2022 [facility] mg/dL 12:51 AM CDT [facility] VLDL CHOLESTEROL 27 <=30 01/01/2022 [facility] mg/dL 12:51 AM CDT [facility] PROVIDER ORDERED RANDOM 01/01/2022 [facility] STATUS 12:51 AM CDT [facility] Specimen Anatomical Collection Method / Collection Time Recei fredy Time (Source) Location / Volume Laterality Blood BLOOD SPECIMEN / Venipuncture / 12/31/2021 11:42 12/31 Unknown Unknown AM CDT 11:43 AM CDT Gasper Ludwig MD CHEMISTRY Performing Organization Address City/State/ZIP Code Phon e Number [facility] [address] [place] [address] LAB[facility]ATORY-[facility] [address] LABORATORY (ABNORMAL) BASIC METABOLIC PANEL (12/31/2021 11:42 AM CDT) P athologist Signature SODIUM 141 135 - 145 01/01/2022 [facility] mmol/L 12:50 AM CDT [facility] POTASSIUM 3.9 3.5 - 5.0 01/01/2022 [facility] mmol/L 12:50 AM CDT [facility] CHLORIDE 101 98 - 110 01/01/2022 [facility] mmol/L 12:50 AM CDT [facility] CO2,TOTAL 30 21 - 31 01/01/2022 [facility] mmol/L 12:50 AM CDT [facility] ANION GAP 10 5 - 18 01/01/2022 [facility] 12:50 AM CDT [facility] GLUCOSE 100 65 - 100 01/01/2022 [facility] mg/dL 12:50 AM CDT [facility] CALCIUM 9.5 8.5 - 10.5 01/01/2022 [facility] mg/dL 12:50 AM CDT [facility] BUN 12 8 - 25 01/01/2022 [facility] mg/dL 12:50 AM CDT [facility] CREATININE 0.86 0.57 - 01/01/2022 [facility] 1.11 mg/dL 12:50 AM CDT [facility] BUN/CREAT RATIO 14 10 - 20 01/01/2022 [facility] 12:50 AM CDT [facility] eGFR 68 (L) >90 01/01/2022 [facility] mL/min/1.7 12:50 AM CDT LAB[facility]ATORY[facility] 3m2 TRAL LABORATORY Comment: As of 2021, eGFR is calcu lated by the CKD-EPI creatinine equation without race adjustment. eGFR can be inf luenced by muscle mass, exercise, and diet. The reported eGFR is an estimation only and is only applicable if the renal function is stable. Specimen Anatomical Collection Method / Collection Time Recei fredy Time (Source) Location / Volume Laterality Blood BLOOD SPECIMEN / Venipuncture / 12/31/2021 11:42 12/31 Unknown Unknown AM CDT 11:43 AM CDT Gasper Ludwig MD CHEMISTRY Performing Organization Address City/State/ZIP Code Phon e Number [facility] [address] [place] [address] LABORATORY-[facility] [address] LABORATORY from Last 3 Months Insurance Payer Benefit Plan / Subscriber ID Effective Dates Phone Addre ss Type Group MEDICARE PART A MEDICARE PART A [id number] 2005-Prese ATTN: CLAIMS - HB USE ONLY HB ONLY nt [address] [place] [address] MEDICARE PART B MEDICARE PART B [id number] 2005-Prese ATTN: CLAIMS - HB USE ONLY HB ONLY nt [address] [place] [address] MEDICARE - PB MEDICARE PB [id number] 2018-Presen ATTN : CLAIMS USE ONLY ONLY t [address] 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
--- OUTSIDE RECORDS SUMMARY | 2022-04-02 12:53 | XMS_ITS | Encounter Summary ---
:1940 Author Organization [employer] [facility] Address [address] [address] Phone Care Team Providers Name Role Phone Elsewhere, Pcp Primary Care Provider Unavailable Encounter Details Date Type Department Care Team Description 12/27/2007 [facility] LAB[facility] [address] [place] [id number] [place] [address] [phone] Social History Tobacco Use Types Packs/Day Years Used Date Smoking Tobacco: Never Assessed Sex Assigned at Date Recorded Not on file documented as of this encounter Plan of Treatment Not on filedocumented as of this encounter Procedures Procedure Name Priority Date/Time Associated Diagnosis Comme nts PROTIME Routine 12/27/2007 10:49 AM Results for this CDT procedure are i n the results section . documented in this encounter Results (ABNORMAL) PROTIME (12/27/2007 10:49 AM CDT) P athologist Signature INR 2.3 (H) 0.9 - 1.1 Comment: SUGGESTED THERAPEUTIC INR RANGES FOR ORA L ANTICOAGULANT THERAPY CATEGORY ? INR PROPHYLAXIS ?2.0-3.0 TREAT THROMBOSIS OR EMBOLISM ? 2.0-3 .0 PROSTHETIC HEART VALVE ? 2. 5-3.5 Specimen (Source) Anatomical Collection Method Collection Time Re ceived Time Location / / Volume Laterality 12/27/2007 10:49 AM CDT Narrative 12/27/2007 11:53 AM CDT Please fax to [facility] @ [phone].Thank you [facility] HEMATOLOGY ORDERABLES documented in this encounter Visit Diagnoses Not on filedocumented in this encounter Care Teams Transformer Repairer Relationship Specialty Start Date End Date Elsewhere, Pcp PCP - General 11/29/07 01/22/11 documented as of this encounter
--- OUTSIDE RECORDS SUMMARY | 2022-04-02 12:53 | XMS_ITS | Encounter Summary ---
:1940 Author Organization [employer] Address [address] [place] [address] Phone Care Team Providers Name Role Phone Alexus Giraldo MD Primary Care Provider [phone] Reason for Visit Reason Comments Hip Pain Encounter Details Date Type Department Care Team Description 01/23/2011 Emergency [facility] Jermain Wilkins, Troch anteric bursitis; CENTER EMERGENCY DO Hip pain, right; DEPARTMENT [address] Enthesopathy of hip region; [address] Pain in joint, pelvic region and thigh; [place] [address] [place] [address] Osteoarth NOS-pelvis [phone] Social History Tobacco Use Types Packs/Day Years Used Date Smoking Tobacco: Never Assessed Sex Assigned at Date Recorded Not on file documented as of this encounter Last Filed Vital Signs Vital Sign Reading Time Taken Comments Blood Pressure 154/62 01/23/2011 12:09 PM CDT Pulse 64 01/23/2011 12:09 PM CDT Temperature 36.6 ??C (97.9 ??F) 01/23/2011 11:21 AM CDT Respiratory Rate 18 01/23/2011 12:09 PM CDT Oxygen Saturation 99% 01/23/2011 12:09 PM CDT Inhaled Oxygen Concentration - - Weight 113.4 kg (250 lb) 01/23/2011 11:21 AM CDT Height 157.5 cm (5' 2) 01/23/2011 11:21 AM CDT Body Mass Index 45.73 01/23/2011 11:21 AM CDT documented in this encounter Discharge Instructions Discharge InstructionsJermain Wilkins DO - 01/23/2011 12:58 PM CDT Most people with this condition get better in 1-2 weeks. If not improving in 3-5 days follow up with PCP. If worsening symptoms - go to ER or call doctor. Tylenol 1000 mg up to 4 times per day as needed for pain. AttachmentsThe following attachments cannot be sent through Care Everywhere. BURSITIS (CUBAN)documented in this encounter Medications at Time of Discharge Medication Sig Dispensed Refills Start Date End Date ATENOLOL OR Take 50 mg by 0 mouth. hydrochlorothiazide 25 MG Take 25 mg by 0 tablet mouth one time a day. warfarin (COUMADIN) 2 MG tablet Take 2 mg by 0 mouth one time a day. documented as of this encounter Discharge Disposition Disposition Code Departure Means Destination Home and/or Self Care Unknown documented in this encounter Progress Notes Tee Richardson RT(R) - 01/23/2011 12:05 PM CDT Pelvis and right hip x-rays completed. documented in this encounter ED Notes Jermain Wilkins DO - 01/23/2011 11:28 AM CDT Chief Complaint Hip Pain HPI Comments: Several days right lateral hip pain, worse with certain movements (abduction) and pressure. NO recent falls. Patient is a 70 year old female presenting with hip problem. Hip Pain The current episode started more than 2 days ago. The problem occurs constantly. The problem has notchanged since onset. The pain is present in the right hip. The quality of the pain is described as aching and sharp. The pain is moderate. Review of Systems Constitutional: Negative for fever. Cardiovascular: Negative for chest pain. Gastrointestinal: Negative for abdominal pain. Genitourinary: Negative for dysuria. Musculoskeletal: Positive for gait problem. Skin: Negative for wound. Neurological: Negative for syncope. No Known Allergies Patient's Medications New Prescriptions No medications on file Previous Medications ATENOLOL OR Take by mouth. HYDROCHLOROTHIAZIDE 25 MG TABLET Take 25 mg by mouth one time a day. WARFARIN (COUMADIN) 2 MG TABLET Take 2 mg by mouth one time a day. Modified Medications No medications on file Discontinued Medications No medications on file Triage medications were reviewed but may be inaccurate. Past Medical History: No past medical history on file. Past Surgical History: No past surgical history on file. Family History: Her family history is not on file. Social History: She Exam: BP 180/85 Pulse 67 Temp(Src) 36.6 ??C (97.9 ??F) (Oral) Resp 22 Ht 1.575 m (5' 2) Wt 113.399 kg (250 lb) BMI 45.73 kg/m2 SpO2 98% Physical Exam Constitutional: She is oriented to person, place, and time. She appears well- developed and well-nourished. obese HENT: Head: Atraumatic. Cardiovascular: Normal rate. Pulmonary/Chest: Effort normal. Abdominal: Soft. No tenderness. Musculoskeletal: She exhibits tenderness. She exhibits no edema. Near normal internal ext rotation right hip. Tender lateral greater trochanter. Able to flex right hip to about 80 degrees. Neurological: She is alert and oriented to person, place, and time. Skin: Skin is warm and dry. Psychiatric: She has a normal mood and affect. Lab Results: No results found for this visit on 01/23/11. Lab results are reviewed as documented in the electronic chart. Rad Results: No results found. Radiographs interpreted by the ED physician will be over-read by a radiologist and the results will be available in the electronic chart. Other Results: Emergency Department Course: The patient was seen and evaluated. Vital signs were stable. Initial examination and history consistent with hip pain related to trochanteric bursitis, no neurovascular injury no signs of septic joint. xrays obtained that show no fracture on my read Pt declined analgesics Discussed treatment options with patient, recommended local injection of bursa. Procedure: Risks, benefits, alternatives discussed. Skin prepped in normal aseptic fashion, local of kenalog 60 mg and 1% lidocaine - 10 ml total volumeusing standard technique to area of most tenderness on right side bursa. PT tolerated well without any acute complications. Questions were answered and the patient was stable for discharge home. ASSESSMENT: Right hip pain Trochanteric bursitis right PLAN: Discharge home. Instructions per AVS. Procedures: Procedures Assessment: No diagnosis found. Plan: MDM Jermain Wilkins DO 01/23/11 1259 Mindi Saldaña - 01/23/2011 11:20 AM CDT Pt states that she hurt her hip on Thursday when getting into a car. Sharp pain when weight bearing. documented in this encounter Plan of Treatment Not on filedocumented as of this encounter Procedures Procedure Name Priority Date/Time Associated Diagnosis Comme nts XR HIP RIGHT LAT W STAT 01/23/2011 12:05 PM Re sults for this PELVIS AP CDT procedure are i n the results section. documented in this encounter Results XR HIP RT 1 VIEW W PELVIS (01/23/2011 12:05 PM CDT) Anatomical Region Laterality Modality Hip, Pelvis Other Specimen (Source) Anatomical Collection Method Collection Time Re ceived Time Location / / Volume Laterality 01/23/2011 12:05 PM CDT Narrative 01/23/2011 12:39 PM CDT This Document is currently in Final Status Exam Signs and Symptoms for Radiological Exam from IDX: ? * tenderness/pain right lateral g reater trochanter region - eval for fracture. AP PELVIS AND RIGHT HIP FINDINGS: There is normal femoroacetabul ar alignment. There is no fracture. Mineralization is normal. Ther e is degenerative change noted in the lower lumbar spine and pubic symp hysis. There is also mild degenerative change in both hips. IMPRESSION: Mild osteoarthritic change i n the right hip. No definite fracture. If there is continued clinical concern for fracture, MRI could be obtained for further evaluation . 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 AP PELVIS AND RIGHT HIP FINDINGS: There is normal femoroacetabul ar alignment. There is no fracture. Mineralization is normal. Ther e is degenerative change noted in the lower lumbar spine and pubic symp hysis. There is also mild degenerative change in both hips. IMPRESSION: Mild osteoarthritic change i n the right hip. No definite fracture. If there is continued clinical concern for fracture, MRI could be obtained for further evaluation . 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 Medication Sig Dispensed Refills Start Date End Date warfarin (COUMADIN) 2 MG tablet Take 2 mg by 0 mouth one time a day. hydrochlorothiazide 25 MG Take 25 mg by 0 tablet mouth one time a day. ATENOLOL OR Take 50 mg by 0 mouth. added in this encounter Active and Recently Administered Medications Orders Medications Ordered That Might Not Have Count Last Ord ered Date First Ordered Date Been Administered lidocaine (XYLOCAINE) 1 % injection 8.5 mL 1 01/23 triamcinolone acetonide (KENALOG-40) 40 1 01/24/20 11 MG/ML injection 60 mg documented in this encounter Care Teams Edge Finisher Relationship Specialty Start Date End Date Alexus Giraldo MD PCP - General Family Medicine 01/23/11 11/12/15 [address] [place] [address] documented as of this encounter
--- OUTSIDE RECORDS SUMMARY | 2022-04-02 12:53 | XMS_ITS | Encounter Summary ---
:1940 Author Organization [employer] Address [address] [address] Phone Care Team Providers Name Role Phone Elsewhere, Pcp Primary Care Provider Unavailable Encounter Details Date Type Department Care Team Description 12/03/2007 [facility] [address] [place] [id number] [place] [address] [phone] Social History Tobacco Use Types Packs/Day Years Used Date Smoking Tobacco: Never Assessed Sex Assigned at Date Recorded Not on file documented as of this encounter Plan of Treatment Not on filedocumented as of this encounter Procedures Procedure Name Priority Date/Time Associated Diagnosis Comme nts PROTIME Routine 12/03/2007 11:26 AM Results for this CDT procedure are i n the results section . documented in this encounter Results (ABNORMAL) PROTIME (12/03/2007 11:26 AM CDT) P athologist Signature INR 2.9 (H) 0.9 - 1.1 Comment: SUGGESTED THERAPEUTIC INR RANGES FOR ORA L ANTICOAGULANT THERAPY CATEGORY ? INR PROPHYLAXIS ?2.0-3.0 TREAT THROMBOSIS OR EMBOLISM ? 2.0-3 .0 PROSTHETIC HEART VALVE ? 2. 5-3.5 Specimen (Source) Anatomical Collection Method Collection Time Re ceived Time Location / / Volume Laterality 12/03/2007 11:26 AM CDT [facility] Lab EC HEMATOLOGY ORDERABLES documented in this encounter Visit Diagnoses Not on filedocumented in this encounter Care Teams Environmental Laboratory Technician Relationship Specialty Start Date End Date Elsewhere, Pcp PCP - General 11/29/07 01/22/11 documented as of this encounter
--- OUTSIDE RECORDS SUMMARY | 2022-04-02 12:53 | XMS_ITS | Clinical Summary ---
:1940 Author Organization [employer] Address [address] [address] Phone Care Team Providers Name Role Phone Aileen Cronin MD Primary Care Provider Allergies Active Allergy Reactions Severity Noted Date Comments Sulfa Drugs 11/13/2015 Medications Medication Sig Dispensed Refills Start Date End Date Status ATENOLOL OR Take 50 mg by 0 Acti ve mouth. hydrochlorothiazide 25 MG Take 25 mg by 0 Active tablet mouth one time a day. warfarin (COUMADIN) 2 MG Take 2 mg by 0 Active tablet mouth one time a day. phenazopyridine (PYRIDIUM) Take 1 Tab by 6 Tab 0 6 Active 200 MG tablet mouth three times a day as needed for Pain. Social History Tobacco Use Types Packs/Day Years Used Date Smoking Tobacco: Never Assessed Sex Assigned at Date Recorded Not on file Last Filed Vital Signs Vital Sign Reading Time Taken Comments Blood Pressure 147/68 11/13/2015 8:20 AM CDT Pulse 76 11/13/2015 8:20 AM CDT Temperature 36.4 ??C (97.5 ??F) 11/13/2015 8:20 AM CDT Respiratory Rate 20 11/13/2015 8:20 AM CDT Oxygen Saturation 99% 01/23/2011 12:09 PM CDT Inhaled Oxygen Concentration - - Weight 114.3 kg (252 lb) 11/13/2015 8:20 AM CDT Height 157.5 cm (5' 2) 11/13/2015 8:20 AM CDT Body Mass Index 46.09 11/13/2015 8:20 AM CDT Plan of Treatment Not on file Insurance Payer Benefit Plan Subscriber ID Effective Phone Address Typ e / Group Dates MEDICARE MEDICARE [id number] 2005-Pre [phone] WPS Medic are PART A & B PART A & B sent 470 MEDICARE PART B [address] [place] [address] MEDICARE MEDICARE [id number] 2018-Pres [address] Medicare COST PART COST PART ent [place], [place] A&B A&B [id number] [place] [id number] 2018-Pres [phone] [address] Me dicare BLUE/VANTAGE ent [phone] [place] [address] OUT OF STATE OUT OF STATE [id number] 2015-Pres [phone] [address] Blue Cross BCBS BCBS ent [phone] [place] [address] Care Teams Window Sash Installer Relationship Specialty Start Date End Date Aileen Cronin MD PCP - General Family Medicine 11/13/15 [facility] CLINIS [address] [place] [address]
--- OUTSIDE RECORDS SUMMARY | 2022-04-02 12:53 | XMS_ITS | Encounter Summary ---
:1940 Author Organization [employer] Address [address] [address] Phone Care Team Providers Name Role Phone Aileen Cronin MD Primary Care Provider Reason for Visit Reason Comments Urinary Frequency Encounter Details Date Type Department Care Team Description 11/13/2015 Emergency [facility] Maximino Hdez III, Urinary tract infection HOSPITAL EMERGENCY MD with hematuria, site DEPARTMENT [address] unspecified (Primary [address]) [place] [address] [place] [phone] [id number] Social History Tobacco Use Types Packs/Day Years [...] 20 11/13/2015 8:20 AM CDT Oxygen Saturation - - Inhaled Oxygen Concentration - - Weight 114.3 kg (252 lb) 11/13/2015 8:20 AM CDT Height 157.5 cm (5' 2) 11/13/2015 8:20 AM CDT Body Mass Index 46.09 11/13/2015 8:20 AM CDT documented in this encounter Discharge Instructions AttachmentsThe following attachments cannot be sent through Care Everywhere. HEMATURIA (DANISH)BLADDER INFECTION, FEMALE (ADULT) (DANISH)documented in this encounter Medications at Time of Discharge Medication Sig Dispensed Refills Start Date End Date phenazopyridine (PYRIDIUM) Take 1 Tab by 6 Tab 0 2015 200 MG tablet mouth three times a day as needed for Pain. ATENOLOL OR Take 50 mg by 0 mouth. hydrochlorothiazide 25 MG Take 25 mg by 0 tablet mouth one time a day. warfarin (COUMADIN) 2 MG Take 2 mg by 0 tablet mouth one time a day. nitrofurantoin, Take 1 Cap by 20 Cap 0 11/13/20152015 macrocrystal-monohydrate, mouth two times (MACROBID) 100 MG capsule a day (breakfast and supper) for 10 days. Take with food or milk. documented as of this encounter Ordered Prescriptions Prescription Sig Dispensed Refills Start Date End Date phenazopyridine (PYRIDIUM) Take 1 Tab by 6 Tab 0 2015 200 MG tablet mouth three times a day as needed for Pain. nitrofurantoin, Take 1 Cap by 20 Cap 0 11/13/20152015 macrocrystal-monohydrate, mouth two times a (MACROBID) 100 MG capsule day (breakfast and supper) for 10 days. Take with food or milk. documented in this encounter Discharge Disposition Disposition Code Departure Means Destination Home and/or Self [facility] documented in this encounter ED Notes Maximino Hdez III, MD - 11/13/2015 8:58 AM CDT Patient: Dede Tran Means of Arrival: Chief Complaint: Urinary Frequency History of Present Illness: Patient is a 75 year old female presenting with frequency. The history is provided by the patient. Urinary Frequency This is a new problem. The current episode started 1 to 2 hours ago. The problem has been unchanged.The pain is moderate. Nothing relieves the symptoms. Associated symptoms include dysuria, frequency,hematuria and urgency. Pertinent negatives include no anorexia, no chills, no fever, no constipation, no diarrhea, no nausea, no vomiting, no headaches, no sore throat, no flank pain and no rash. The last void occurred less than 6 hours ago. Review of Systems: Review of Systems Constitutional: Negative for chills and fever. HENT: Negative for sore throat. Gastrointestinal: Negative for anorexia, constipation, diarrhea, nausea and vomiting. Genitourinary: Positive for dysuria, frequency, hematuria and urgency. Negative for flank pain. Skin: Negative for rash. Neurological: Negative for headaches. Allergies Allergen Reactions ??? Sulfa Drugs Prior to Admission Medication List ATENOLOL OR Take 50 mg by mouth. hydrochlorothiazide 25 MG tablet Take 25 mg by mouth one time a day. warfarin (COUMADIN) 2 MG tablet Take 2 mg by mouth one time a day. Past Medical History: No past medical history on file. Past Surgical History: No past surgical history on file. Family History: No family history on file. Social History: She Exam: Initial Vitals Most Recent Vitals Temp: 97.5 ??F (36.4 ??C) (11/13/158[address]) Temp: 97.5 ??F (36.4 ??C) (11/13/[address]) Pulse: 76 (11/13/[address]) Pulse: 76 (11/13/[address]) Resp: 20 (11/13/[address]) Resp: 20 (11/13/[address]) BP: 147/68 (11/13/158[address]) BP: 147/68 (11/13/[address]) Visual Acuity: Physical Exam: Physical Exam Constitutional: No distress. Massively obese Cardiovascular: Normal rate and regular rhythm. Pulmonary/Chest: Effort normal and breath sounds normal. Abdominal: There is tenderness in the suprapubic area. There is no rebound, no guarding and no CVA tenderness. Skin: She is not diaphoretic. Lab Results: Results for orders placed or performed during the hospital encounter of 11/13/15 PROTIME Collection Time: 11/13/15 9:25 AM Result Value Ref Range PROTIME (H) 38.2 (H) 10.0 - 14.0 SECONDS INR 3.3 URINALYSIS Collection Time: 11/13/15 8:30 AM Result Value Ref Range URINALYSIS COLOR RED (A) YELLOW CLARITY CLDY (A) CLEAR GLUCOSE URINE TRACE (A) NEGATIVE BLOOD 3+ (A) NEGATIVE URINE RBC PACKD (A) 0-1/HPF INR - 3.3 UA - abnormal Imaging Results: Imaging Results None Emergency Department Course: Discussed temporary reduction in her Coumadin to 50% of what she is taking right now until she completes the antibiotics. Discharged to home in stable unchanged condition. Procedures: Procedures Assessment: (N39.0, R31.9) Urinary tract infection with hematuria, site unspecified (primary encounter diagnosis) Plan: Discharge Prescriptions Medication Sig Dispense Start Date End Date Auth. Provider phenazopyridine (PYRIDIUM) 200 MG tablet Take 1 Tab by mouth three times a day as needed for Pain. 6 Tab 11/13/2015 Maximino Hdez III, MD nitrofurantoin, macrocrystal-monohydrate, (MACROBID) 100 MG capsule Take 1 Cap by mouth two times aday (breakfast and supper) for 10 days. Take with food or milk. 20 Cap 11/13/2015 11/23/2015 Maximino Hdez III, MD ED Course There is no data filed. MDM Maximino Hdez III, MD 11/13/15 0943 Radhika Patton RN - 11/13/2015 8:18 AM CDT Painful and bloody urination documented in this encounter Plan of Treatment Not on filedocumented as of this encounter Procedures Procedure Name Priority Date/Time Associated Comments Diagnosis PROTIME STAT 11/13/2015 9:25 AM Results f or this CDT procedure are i n the results section. URINALYSIS, REFLEX TO STAT 11/13/2015 8:30 AM Results for this MICROSCOPIC CDT procedure are i n the results section. documented in this encounter Results (ABNORMAL) PROTIME (11/13/2015 9:25 AM CDT) P athologist Signature PROTIME (H) 38.2 (H) 10.0 - 14.0 [facility] INR 3.3 [facility] Comment: RECOMMENDED INR FOR ANTICOAGULANT THERAP Y ?INR Range ?? Target INR Prosthetic Heart Valves ?2.0-3.5 ? 2.5-3.0 (depends on type) Deep Vein Thrombosis ? 2.0-3.0 ? 2.5 Prophylaxsis ? 2.0 -3.0 ? 2.5 Specimen Anatomical Collection Method Collection Time Receive d Time (Source) Location / / Volume Laterality 11/13/2015 9:25 AM 6 8:56 CDT AM CDT Maximino Hdez III, MD EC HEMATOLOGY ORDERABLES Performing Organization Address City/[facility]/ZIP [facility] Phon e Number [facility] [address] [facility] [address] [address] [place] [address] 3, [facility] [phone] (ABNORMAL) URINALYSIS (11/13/2015 8:30 AM CDT) athologist Signature URINALYSIS [facility] Comment: DUE TO GROSS BLOOD INTERFERENCE FROM KATELYN PLE, ONLY ABLE TO REPORT GLUCOSE AND BLOOD FROM DIPSTICK. Color RED (A) YELLOW [facility] Appearance CLDY (A) CLEAR [facility] Urine Glucose TRACE (A) NEGATIVE [facility] Urine Blood 3+ (A) NEGATIVE [facility] Urine RBC's PACKD (A) 0-1/HPF [facility] Specimen Anatomical Collection Method Collection Time Receive d Time (Source) Location / / Volume Laterality 11/13/2015 8:30 AM 6 8:25 CDT AM CDT Narrative [facility] - 016 8:48 AM CDT Specimen Source?->CVMS URINE Maximino Hdez III, MD EC URINE ORDERABLES Performing Organization Address City/[facility] Phon e Number [facility] [address] [address] [facility] [address] [address] [place] [address] [address] [phone] documented in this encounter Visit Diagnoses Diagnosis Urinary tract infection with hematuria, site unspecified - Primary documented in this encounter Care Teams Enterprise Account Executive Relationship Specialty Start Date End Date Aileen Cronin MD PCP - General Family Medicine 11/13/[address] [address] documented as of this encounter
--- OUTSIDE RECORDS SUMMARY | 2022-04-02 12:53 | XMS_ITS | Encounter Summary ---
:1940 Author Organization [employer] Address [address] [address] Phone Care Team Providers Name Role Phone Elsewhere, Pcp Primary Care Provider Unavailable Encounter Details Date Type Department Care Team Description 11/29/2007 [facility] LAB[facility] [address] [place] [id number] [place] [address] [phone] Social History Tobacco Use Types Packs/Day Years Used Date Smoking Tobacco: Never Assessed Sex Assigned at Date Recorded Not on file documented as of this encounter Plan of Treatment Not on filedocumented as of this encounter Procedures Procedure Name Priority Date/Time Associated Diagnosis Comme nts PROTIME Routine 11/29/2007 11:03 AM Results for this CDT procedure are i n the results section . documented in this encounter Results (ABNORMAL) PROTIME (11/29/2007 11:03 AM CDT) P athologist Signature INR 3.5 (H) 0.9 - 1.1 Comment: SUGGESTED THERAPEUTIC INR RANGES FOR ORA L ANTICOAGULANT THERAPY CATEGORY ? INR PROPHYLAXIS ?2.0-3.0 TREAT THROMBOSIS OR EMBOLISM ? 2.0-3 .0 PROSTHETIC HEART VALVE ? 2. 5-3.5 Specimen (Source) Anatomical Collection Method Collection Time Re ceived Time Location / / Volume Laterality 11/29/2007 11:03 AM CDT Narrative 11/29/2007 11:41 AM CDT Please fax results to [facility] @ [phone] [facility] Floor Lab EC HEMATOLOGY ORDERABLES documented in this encounter Visit Diagnoses Not on filedocumented in this encounter Care Teams Vest Finisher Relationship Specialty Start Date End Date Elsewhere, Pcp PCP - General 11/29/07 01/22/11 documented as of this encounter
[2022-04-02 13:19] VITALS: BP 114/78; PULSE 64; O2SAT 96
--- NOTE | 2022-04-02 13:24 | CRLHL7_ITS ---
For Patients: As a result of the Century Cures Act, medical imaging exams and procedure reports are released immediately into your electronic medical record. You may view this report before your referring provider. If you have questions, please contact your health care provider. INDICATION: Left-sided headache, suspect occ neuralgia, anticoagulate. TECHNIQUE: Head CT without contrast. Coronal and sagittal reformats were generated. COMPARISON: None. FINDINGS: CSF spaces: Within normal limits for age. Brain parenchyma and extra-axial spaces: Nonspecific low attenuation white matter changes consistent with chronic microvascular disease. No sign of mass, hemorrhage, or midline shift. Skull base and calvarium: The visualized paranasal sinuses and mastoid air cells demonstrate no acute or significant findings. The visualized orbits are grossly unremarkable. No skull fractures. IMPRESSION: No acute or significant findings. Please note that all CT scans at this facility use dose modulation, iterative reconstruction, and/or weight-based dosing when appropriate to reduce radiation dose to as low as reasonably achievable. Dictated by Michael Adams MD @ 04/02/2022 2:12:06 PM (Electronically Signed)
== END 2022-04-02 14:55 | disposition home or self-care (01) ==
PROVIDERS: Emergency Provider Family Medicine; PCP Surgery
DX: M54.81 Occipital neuralgia (principal)
CPT/HCPCS: 70450; 99284

== ENCOUNTER 2023-01-13 13:37 | Outpatient (CLI) | payer MEDICARE, BC, SELFPAY | END 2023-01-13 13:38 | disposition home or self-care (01) | LOC: WOUND 13:38 | PROVIDERS: PCP Surgery; Visit Provider Nurse Practitioner Family | DX: T21.21XA Burn of second degree of chest wall, initial encounter (principal); X19.XXXA Contact with other heat and hot substances, initial encounter | CPT/HCPCS: 97597; 99212 ==

== ENCOUNTER 2023-01-20 11:24 | Outpatient (CLI) | payer MEDICARE, BC, SELFPAY | END 2023-01-20 11:25 | disposition home or self-care (01) | LOC: WOUND 11:24 | PROVIDERS: PCP Surgery; Visit Provider Nurse Practitioner Family | DX: T21.21XA Burn of second degree of chest wall, initial encounter (principal) | CPT/HCPCS: 99212 ==

== ENCOUNTER 2023-06-24 13:29 | Outpatient (CLI) | payer MEDICARE, BC, SELFPAY ==
--- OUTSIDE RECORDS SUMMARY | 2023-06-24 13:37 | XMS_ITS | Encounter Summary ---
Author Name Unknown Organization [facility] Address [address] [place] [address] Care Team Providers Care Patch Driller Name Role Phone Elsewhere, Pcp Primary Care Provider Unavailabl e Encounter Details Date Type Department Care Team (Late st Contact Info) Description 07/01/2022 Clinical Communication Department of Dermatology in [place], [place] [address] [phone] Florentino Salmon M.D. [address] [place] [phone] Social History Tobacco Use Types Packs/Day Years Used Date Smoking Tobacco: Never Smokeless Tobacco: Never Nutrition Answer Date Recorded Nutrition: EVOO Fat Source Unknown 07/23 Nutrition: Servings of Fruits/Vegetables per Day Not on file 07/23/2021 Dental Answer Date Recorded Dental: Regular Dentist Unknown 07/24/19 Sex and Gender Information Value Date Recorded Sex Assigned at Not on file Gender Identity Not on file Sexual Orientation Not on file documented as of this encounter Miscellaneous Notes * Telephone Encounter - Tisha Tran, R.N. - 07/01/2022 10:16 AM CST Called and spoke to Dede, Walked through using a Good RX coupon to reduce the coffey of her efudex. She states understanding and will contact us if she has any issues using the coupon or transferring her Prescription. ING TECHNICIAN documented in this encounter Plan of Treatment Not on file documented as of this encounter Visit Diagnoses Not on filedocumented in this encounter Care Teams Patch Driller Relationship Specialty Start Date End Date Elsewhere, Pcp PCP - General Internal Medicine 01/17/22 documented as of this encounter
--- OUTSIDE RECORDS SUMMARY | 2023-06-24 13:37 | XMS_ITS ---
Author Name Unknown Organization [facility] Address [address] [place] [address] Care Team Providers Care End User Consultant Name Role Phone Unavailable Unavailable Unavailable Surgery Details Not on file Complications Check Surgery Details section. Procedure Estimated Blood Loss Check Surgery Details section. Procedure Findings Check Surgery Details section. Procedure Specimens Taken Check Surgery Details section.
--- OUTSIDE RECORDS SUMMARY | 2023-06-24 13:37 | XMS_ITS | Encounter Summary ---
Author Name Unknown Organization [facility] Address [address] [place] [address] Care Team Providers Care Geoscience Laboratory Technician Name Role Phone Elsewhere, Pcp Primary Care Provider Unavailabl e Reason for Referral * Outpatient (Routine) - Authorized Specialty Diagnoses / Procedures Referred By Contac t Referred To Contact Dermatology Florentino Salmon M.D. [address] [phone] [facility] Region Referral ID Status Reason Start Date Expiration Date V isits Requested Visits Authorized [id number] Authorized 07/23/2022 07/22/2025 1 1 Scheduling Instructions Recheck arms and legs after Efudex LASS CUTTER Reason for Visit * Reason Comments Lesion * Outpatient (Routine) - Closed Specialty Diagnoses / Procedures Referred By Contac t Referred To Contact Dermatology Florentino Salmon M.D. [address] [phone] [facility] Region Referral ID Status Reason Start Date Expiration Date Visits Re quested Visits Authorized [id number] Closed 01/17/2022 01/16/2025 1 1 Encounter Details Date Type Department Care Team (Late st Contact Info) Description 07/23/2022 11:00 AM EYEGLASS CUTTER Office Visit Department of Family Medicine, [facility], in [place], [place] [address] [place] [address] Florentino Salmon M.D. [address] [place] [phone] Keratosis Actinic (Primary Dx); Sun Damaged Skin Social History Tobacco Use Types Packs/Day Years Used Date Smoking Tobacco: Never Smokeless Tobacco: Never Tobacco Cessation:Counseling Given: Not Answered Nutrition Answer Date Recorded Nutrition: EVOO Fat Source Unknown 07/23 Nutrition: Servings of Fruits/Vegetables per Day Not on file 07/23/2021 Dental Answer Date Recorded Dental: Regular Dentist Unknown 07/24/19 Sex and Gender Information Value Date Recorded Sex Assigned at Not on file Gender Identity Not on file Sexual Orientation Not on file documented as of this encounter H&P Notes * Florentino Salmon M.D. - 07/23/2022 11:00 AM CST Images from the original note were not included. Note: Patient was made aware that I am trained as a Family Medicine Specialist and have a special interest in Dermatology. However, I am not a warehouse general laborer. Anything beyond the scope of my abilitiesor comfort level will be referred to a [facility] of their choosing. SUBJECTIVE CHIEF COMPLAINT / REASON FOR VISIT Follow up after Efudex for actinic keratoses and sun damage HISTORY OF PRESENT ILLNESS Chief Complaint (Reason for visit): Recheck arms and legs after efudex Was patient referred, self referred, or a returning derm patient? : Returning patient ; she only was able to handle 2.5 wks on the legs Personal or family history of skin cancer or other skin condition? : personal hx Any other skin concerns today? : no REVIEW OF SYSTEMS PERTINENT TO DERMATOLOGY REVIEW OF SYSTEMS Constitutional, integumentary, and allergic/immunologic review of systems is negative of systems isotherwise negative except as remarked above or below. PAST MEDICAL/FAMILY/SOCIAL HISTORY PERTINENT TO DERMATOLOGY See HPI OBJECTIVE PHYSICAL EXAM Physical Exam Chest Upper extremities General: Alert and oriented x3. Well-nourished and groomed, in no acute distress. SKIN: A focused skin examination was performed of the area(s) of concern. See pictorial image abovefor findings. ASSESSMENT / PLAN IMPRESSION/REPORT/PLAN 1. Lesion of concern. Determined to be Actinic keratosis x 22. Given the precancerous nature of thelesion(s), treatment is medically indicated and cryotherapy was recommended. Verbal informed consent was obtained from the patient and we proceeded to treat the premalignant lesion(s) with liquid nitr ogen cryotherapy. Aftercare instructions were given. Should the lesion(s) not resolve after the healing period, patient should return for reevaluation and consideration of biopsy. 2. Derm Follow Up Frequency: 3 months, or sooner if new skin changes occur. Florentino Salmon MD This note represents shared documentation between the assisting nurse and the encounter provider. The content has been reviewed and edited as needed by the provider. documented in this encounter Plan of Treatment Scheduled Referrals Name Type Priority Associated Diagnoses Order Schedule Dermatology office visit (clinic) Outpatient Referral Routine Expected: 10/29/2022 (Approximate), Expires: 10/24/2023 documented as of this encounter Visit Diagnoses Diagnosis Keratosis Actinic- Primary Sun Damaged Skin documented in this encounter Care Teams Geoscience Laboratory Technician Relationship Specialty Start Date End Date Elsewhere, Pcp PCP - General Internal Medicine 01/17/22 documented as of this encounter
--- OUTSIDE RECORDS SUMMARY | 2023-06-24 13:37 | XMS_ITS | Referral Summary ---
Author Name Unknown Organization [facility] Address [address] [place] [address] Care Team Providers Care Deli Manager Name Role Phone Elsewhere, Pcp Primary Care Provider Unavailabl e Source Comments Patient records contain information from all sites at [facility]. For routine questions regarding patient records, call [phone] during business hours, M-F 8:00 AM - 5:00 PM Central Time. Record requests for emergency care only can be directed to [phone] at any time.[facility] Allergies Active Allergy Reactions Criticality Noted Date Comments Fluconazole Other (see comments) 08/06/2006 per paper chart sick Poly-Ureaurethane Shortness of breath (Reselect Reaction) Low 04/30/2016 Polyurethane-39 Shortness of breath (Reselect Reaction) 05/08/2011 Sulfa (Sulfonamide Antibiotics) Other (see comments),GI intolerance High 08/06/2006 Other reaction(s): nausea Sulfasalazine Nausea Only 11/13/2015 Tramadol Other (see comments) 09/19/2008 Medications Medication Sig Dispensed Refills Start Date End Date Status acetaminophen (TYLENOL) 500 mg tablet Take 500 mg by mouth. 0 12/28/2015 Active albuterol 90 mcg/actuation inhaler INHALE 1-2 PUFFS BY MOUTH EVERY 4 HOURS IF NEEDED 0 06/08/2013 Active atenoloL (TENORMIN) 50 mg tablet Take 50 mg by mouth daily. 0 06/24/2021 Active atorvastatin (LIPITOR) 20 mg tablet Take 1 tablet by mouth daily. 0 12/06/2020 Active gabapentin (NEURONTIN) 100 mg capsule Take 200 mg by mouth. 0 04/25/2021 Active hydroCHLOROthiazide (HYDRODIURIL) 25 mg tablet Take 25 mg by mouth daily. 0 06/24/2021 Active alum-mag hydroxide-simeth 225-200-25 mg/5 mL suspension Take 30 mL by mouth. 0 04/07/2018 Acti ve warfarin (COUMADIN) 2 mg tablet Take by mouth 1 mg (2 mg x 0.5) every Fri; 2 mg (2 mg x 1) all other days OR as directed. 0 06/08/2013 Active fluorouraciL (EFUDEX) 5 % creamIndications:Ker atosis Actinic Apply 1 application topically 2 (two) times a day. For 3-4 wks on entire left arm. Then 3-5 wks on left lower leg. Then 3-5 wks on right lower leg. Then 3-4 wks on entire right arm. 80 g 6 01/17/2022 Active triamcinolone (KENALOG) 0.1 % ointment Apply 1 application topically 2 (two) times a day as needed for irritation or rash. May spot treat irritated, sore, or itchy areas of the treatment areas during and after Efudex treatment. 80 g 3 01/17/2022 Active Immunizations Name Administration Dates Next Due HZV (ZOSTAVAX) 11/04/2010,02/07/2009 HepA, Unspecified 08/07/2006 HepB, Unspecified 08/07/2006 Influenza Split 02/20/2014,01/24/2013,02/23/2008 Influenza, Seasonal, Injectable 03/24/2006 PPSV23(Discontinued) 05/25/2004 Td Preservative Free (TENIVAC, DECAVAC) 05/05/19 97 Td, (Adult) Unspecified 05/25/2005 Tdap 07/21/2012 TyVi [...] on file Sexual Orientation Not on file Last Filed Vital Signs Vital Sign Reading Time Taken Comments Blood Pressure 158/77 05/29/2014 11:07 AM END TRIMMER Pulse 86 05/29/2014 11:07 AM END TRIMMER Temperature - - Respiratory Rate 18 02/19/2014 2:20 PM CDT Oxygen Saturation - - Inhaled Oxygen Concentration - - Weight 112 kg (246 lb 7.6 oz) 05/29/2014 11:07 A M END TRIMMER Height 156.5 cm (5' 1.61) 05/29/2014 11:[address] Body Mass Index 45.65 05/29/2014 11:07 AM END TRIMMER Plan of Treatment Not on file Medical Devices Implanted Type Area Management Liaison Device Identifier Shelf Expiration Date Model / Serial / Lot Triathlon-Tibia l Baseplate May #2 - [id number] Implanted:Qty: 1 on 05/10/2008 Knee Implant Other/Legacy - See Implant Description [place] Description:Device Manufactu rer - [place] Eric.. Body Location - Other. Left. Device Status Text - [id number] [id number]. Triathlon-Femor al Cemented #3 Rt - [id number] Implanted:Qty: 1 on 09/19/2008 Knee Implant Other/Legacy - See Implant Description [place] Description:Device Manufactu rer - [place] Eric.. Body Location - Other. Right. Device Status Text - [id number]. Conversions - Default Historical Implant Device Implanted:05/29 (Quantity not on file) Knee Implant Description:Device Status Te xt - Knee Imp. both knees. Cement Bone Large - Garcia [id number] Implanted:Qty: 2 on 05/10/2008 [facility] Other [place] Description:Device Manufactu rer - Dickson Eric.. Device Status Text - [id number]. Cement Bone Large - Garcia [id number] Implanted:Qty: 2 on 09/19/2008 Mis Other [place] Description:Device Manufactu rer - [place] Eric.. Device Status Text - [id number]. Advance Directives For more information, please contact: [phone] Documents on File Type Date Recorded Patient Therapeutic Radiologist Expl anation Advance Directives 08/31/2019 11:12 AM Heal th Care Directive Advance Directives 10/14/2016 12:00 AM Leg acy document. See document viewer. Advance Directives 10/14/2016 12:00 AM Leg acy document. See document viewer. Healthcare Agents on File Name Relationship Healthcare Agent Relationship Communication Erin Tran Spouse Health Care Agent Nataliya Lewis Daughter First Serenity cabrera Health Care Agent Care Teams Deli Manager Relationship Specialty Start Date End Date Elsewhere, Pcp PCP - General Internal Medicine 01/17/22
--- OUTSIDE RECORDS SUMMARY | 2023-06-24 13:37 | XMS_ITS | Clinical Summary ---
Author Name Unknown Organization [facility] Address [address] [place] [address] Care Team Providers Care Fourdrinier Tender Name Role Phone Elsewhere, Pcp Primary Care Provider Unavailabl e Source Comments Patient records contain information from all sites at [facility]. For routine questions regarding patient records, call [phone] during business hours, M-F 8:00 AM - 5:00 PM Central Time. Record requests for emergency care only can be directed to [phone] at any time.[facility] Allergies Active Allergy Reactions Criticality Noted Date [...] Date Recorded Dental: Regular Dentist Unknown 07/24/19 22 Sex and Gender Information Value Date Recorded Sex Assigned at Not on file Gender Identity Not on file Sexual Orientation Not on file Last Filed Vital Signs Vital Sign Reading Time Taken Comments Blood Pressure 158/77 05/29/2014 11:07 AM RADIOTELEPHONE TECHNICAL OPERATOR Pulse 86 05/29/2014 11:07 AM RADIOTELEPHONE TECHNICAL OPERATOR Temperature - - Respiratory Rate 18 02/19/2014 2:20 PM CDT Oxygen Saturation - - Inhaled Oxygen Concentration - - Weight 112 kg (246 lb 7.6 oz) 05/29/2014 11:07 A M RADIOTELEPHONE TECHNICAL OPERATOR Height 156.5 cm (5' 1.61) 05/29/2014 11:[address] Body Mass Index 45.65 05/29/2014 11:07 AM RADIOTELEPHONE TECHNICAL OPERATOR Plan of Treatment Health Maintenance Due Date Last Done Comments Zoster Vaccines (2 of 3) 12/30/2010 11/04/2010, 01/23 DTaP,Tdap,and Td Vaccines (7 - Td or Tdap) 07/21/2022 07/21/2012, 08/07/2006, 05/25/2005, Additional history exists Depression Screening (Annual PHQ-2) 05/25/2023 Fall Risk Screen (Annual) 05/25/2023 Hepatitis A Vaccines Completed 07/02/2007, 02/22/2007, 09/08/2006, Additional history exists Hepatitis B Vaccines Completed 07/02/2007, 02/22/2007, 09/08/2006, Additional history exists Pneumococcal vaccine (65+ years) Completed 01/24/2015, 09/08/2006, 05/25/2004, Additional history exists COVID-19 Vaccine Completed 02/26/2023, 01/2022, 02/04/2021, Additional history exists Influenza Vaccine Completed 02/26/2023, , 01/29/2021, Additional history exists Medical Devices Implanted Type Area Antenna Machine Operator Device Identifier Shelf Expiration Date Model / Serial / Lot Triathlon-Tibia l Baseplate [place] #2 - [id number] Implanted:Qty: 1 on 05/10/2008 Knee Implant Other/Legacy - See Implant Description [place] Description:Device Manufactu rer - [employer] Eric.. Body Location - Other. Left. Device Status Text - [id number]. Triathlon-Femor al Cemented #3 Rt - [id number] Implanted:Qty: 1 on 09/19/2008 Knee Implant Other/Legacy - See Implant Description [place] Description:Device Manufactu rer - [employer]ickson Eric.. Body Location - Other. Right. Device Status Text - [id number]. Conversions - Default Historical Implant Device Implanted:05/29 (Quantity not on file) Knee Implant Description:Device Status Te xt - Knee Imp. both knees. Cement Bone Large - Garcia [id number] Implanted:Qty: 2 on 05/10/2008 [facility] Other [place] Description:Device Manufactu rer - Dickson Eric.. Device Status Text - [id number]. Cement Bone Large - Garcia [id number] Implanted:Qty: 2 on 09/19/2008 [facility] Other [place] Description:Device Manufactu rer - Dickson Eric.. Device Status Text - [id number]. Advance Directives For more information, please contact: [phone] Documents on File Type Date Recorded Patient Fire Boss Expl anation Advance Directives 08/31/2019 11:12 AM Heal th Care Directive Advance Directives 10/14/2016 12:00 AM Leg acy document. See document viewer. Advance Directives 10/14/2016 12:00 AM Leg acy document. See document viewer. Healthcare Agents on File Name Relationship Healthcare Agent Relationship Communication Erin Tran Spouse Health Care Agent Nataliya Lewis Daughter First Alterna te Health Care Agent Care Teams Fourdrinier Tender Relationship Specialty Start Date End Date Elsewhere, Pcp PCP - General Internal Medicine 01/17/22
--- OUTSIDE RECORDS SUMMARY | 2023-06-24 13:37 | XMS_ITS | Clinical Summary ---
Author Name Unknown Organization [facility] Address [place], [place] [address] Care Team Providers Care Gear Shaper Set Up Operator Name Role Phone Gasper Ludwig MD Primary Care Provider [phone] Allergies Active Allergy Reactions Criticality Noted Date Comments Fluconazole 08/06/2006 per paper chart sick Poly-Ureaurethane Shortness Of Breath Low 6 Sulfa (Sulfonamide Antibiotics) *Unknown High 08/06/2006 Other reaction(s): nausea Sulfasalazine Nausea Only 11/13/2015 Medications Medication Sig Dispensed Refills Start Date End Date Status acetaminophen (TYLENOL EXTRA STRGTH) 500 mg tablet Take 1 tablet by mouth every 6 hours if needed. Max acetaminophen dose: 4000mg in 24 hrs. 0 6 Active oxygen-air delivery systems (HOME OXYGEN)Indications: Hypoxia Oxygen for home use. Liters per minute: 1-2 per nasal cannula. Frequency of use: With activity;. Length of need: 99 Months. 1 Each 0 3 Active oxygen-air delivery systems (HOME OXYGEN)Indications: Hypoxia Portable Oxygen concentrator. Oxygen for home use. Liters per minute: 1 per nasal cannula. Frequency of use: with activity and Nocturnal;. Length of need: 99 Months. 1 Each 0 3 Active atenoloL (TENORMIN) 50 mg tabletIndications:E ssential hypertension Take 1 Tablet (50 mg) by mouth once daily. 90 Tablet 3 3 Active atorvastatin (LIPITOR) 20 mg tabletIndications:H yperlipidemia, unspecified hyperlipidemia type Take 1 Tablet (20 mg) by mouth once daily. 90 Tablet 3 3 Active gabapentin (NEURONTIN) 100 mg capsuleIndications: Foraminal stenosis of cervical region Take 2 Capsules (200 mg) by mouth three times daily. 540 Capsule 3 3 Active hydroCHLOROthiazide (HCTZ) 25 mg tabletIndications:E ssential hypertension Take 1 Tablet (25 mg) by mouth once daily. 90 Tablet 3 3 Active warfarin (COUMADIN) 2 mg tabletIndications:A nticoagulation monitoring, INR range 2-3,History of pulmonary embolism,History of deep venous thrombosis (DVT) of distal vein of left lower extremity Take by mouth 3 mg (2 mg x 1.5) every Tue; 2 mg (2 mg x 1) all other days in the evening OR as directed 33 Tablet 0 4 Active warfarin (COUMADIN) 2 mg tabletIndications:A nticoagulation monitoring, INR range 2-3,History of pulmonary embolism,History of deep venous thrombosis (DVT) of distal vein of left lower extremity Take by mouth 3 mg (2 mg x 1.5) every Tue; 2 mg (2 mg x 1) all other days in the evening OR as directed 100 Tablet 0 3 06/14/19 24 Discontinu ed(Reorder (E-cancel not sent)) Active Problems Problem Noted Date Diagnosed Date History of pulmonary embolus (PE) 06/10/2019 Overview: Right sided in 1994 Body mass index (BMI) 45.0-49.9, adult 0 Osteoporosis 06/10/2019 Overview: Previously on fosamax. Elected to not treat further 05/2019. 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 Progression vision loss leading to blindness. 2 of her nephews have it. 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 evaluation by Dr. Blackman. did not use tamoxifen because of history of PE Unspecified asthma(493.90) 08/06/2006 Unspecified essential hypertension 05/26/2006 Resolved Problems Problem Noted Date Diagnosed Date Resolved Date History of pulmonary embolism 09/06/2018 10/25/2020 Chest pain 05/10/2015 05/24/2019 Abnormal cardiovascular stress test 05/10/2015 05/24/2019 Overview: - 04/11/15: There is a small area of mild ischemia in the apical anterior wall. Normal left ventricular ejection fraction of approximately 65 percent Fracture of right toe 05/10/20152020 History of breast cancer 04/30/2015 History of pulmonary emphysema 11/23/2014 10/25/2020 Overview: 11-09-2007 Nummular eczema 07/21/2012 05/24/2019 Paresthesia 05/21/2010 05/24/2019 Unspecified tinnitus 05/21/2009 019 Osteopenia 01/16/2009 06/10/2019 Overview: Last Dexa 2016 - repeat recommended in 2 years Routine general medical exam ination at a health care facility 01/03/2009 05/24/2019 Overview: Colonoscopy 2004, no polyps.path normal. Ok to recheck in 10 years. 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 11/25/2007 11/02/2010 Overview: INR goal range 2.0-3.0 Hemorrhage of rectum and anus 03/08/2007 01/03/2009 Osteoarthrosis, unspecified whether generalized or localized, unspecified site 03/08/2007 05/24/2019 Encounters Date Type Department Care Team Description 06/14/2023 Refill [facility] [address] [place] [address] Gasper Ludwig MD Refill Request (Warfarin/) 06/05/2023 10:30 AM SECURE SOFTWARE ASSESSOR Orders Only [address] [address] Lab 06/05/2023 Anticoagulation (warfarin) [address] [address] Clinic, [facility] An[facility] 06/05/2023 Travel 05/22/2023 11:15 AM SECURE SOFTWARE ASSESSOR Orders Only [address] [address] Lab 05/22/2023 Anticoagulation (warfarin) [facility] [address] [place] [address] 1, [facility] Anticoagulation 05/22/2023 Travel 04/15/2023 1:00 PM SECURE SOFTWARE ASSESSOR Orders Only [address] [address] Lab 04/15/2023 Telephone [facility] [address] [place] [address] Gasper Ludwig MD Anticoagulation (Request to switch PCP) 04/15/[address] [address] Kimberly Castillo MD Anticoagulation (Hold orders 04/22 eye surgery) 04/15/2023 Anticoagulation (warfarin) [address] [address] Clinic, [facility] Anticoagulation 04/15/2023 Travel from Last 3 Months Immunizations Name Administration Dates Next Due AMB Influenza, IIV3 (Age >=3 years)(Flu Clinic Only) 03/20/2010 AMB Influenza, IIV4 PF (=>6 mos Flulaval,Fluzone Fluarix)(Flu Clinic Only) 02/22/2019 Amb Influenza, Inact (High-d ose) (Flu Clinic Only) 02/21/2016 Amb Influenza, Inactivated A IIV4 (Age 65+ Years) Preserv Free 02/17/2020 COVID-19 vaccine (Allylix-Bio NTech 30mcg/0.3mL) 12YO+ ANT-SUCROSE PF, MDV 12/31/2021 COVID-19 vaccine (Pfizer-Bio NTech 30mcg/0.3mL) PF, MDV 02/04/2021,07/31/2020,07/10/2020 DT (Age < 7 years) 06/23/1988,06/14/1987 HepA-HepB (Twinrix) 07/02/2007, 7,09/08/2006,2006 Hepatitis A, Unspecified 08/07/2006 Hepatitis B, Unspecified 08/07/2006 Influenza A (H1N1), Inactivated 07/02/2009 Influenza A (H1N1), Inactiva dante (Age >=3 Years) 07/02/2009 Influenza Virus, Unspecified 02/20/2014, 01/24/2013,02/23/2008,2007 Influenza, High-dose Inactivated 01/24/2015,01/23,01/24/2013 Influenza, IIV3 (Age 6-35 mos) 02/27/2011,2008 Influenza, IIV3 (Age >=3 years) 02/01/20 13,02/04/2012,02/27/2011,2008,03/06/2008,04/07/2007,03/24/2006,1 ,03/04/2004,03/27/2003 Influenza, Inactivated AIIV4 (Age 65+ Years) Preserv Free 02/07/2022,01/29/2021 Influenza, Inactivated IIV3 (Age 65+ Years) Preserv Free 02/09/2018,02/06/2017 Pneumococcal Poly,23-Valent (Pneumovax) 09/08/2006,05/25/2004,03/17/1998 Pneumococcal conj 13-Valent (Prevnar 13) 01/24/2015 TD, UNSPECIFIED 05/25/2005 Td (Age >=7 Years) 08/07/2006,05/25/2005, 997 Td, Preservative Free (age > = 7 Years) 08/07/2006,05/05/1997 Tdap 07/21/2012 Typhoid (injectable) 02/04/2012,08/13/2009,08/07 Zoster (Zostavax-ZVL, live) 11/04/2010, 9 Family History Medical History Relation Name Comments Cancer-breast Daughter Heart Disease Mother Cancer-ovarian No Family History Relation Name Status Comments Daughter Mother Social History Tobacco Use Types Packs/Day Years Used Date Smoking Tobacco: Never Smokeless Tobacco: Never Tobacco Cessation:Counseling Given: Yes Alcohol Use Standard Drinks/Week Comments No 0 (1 standard drink = 0.6 oz pur e alcohol) PHQ-2 Answer Date Recorded PHQ-2 TOTAL SCORE 0 01/01/2023 Social Connections Answer Date Recorded Frequency of Communication with Friends and Fami ly 0 11/19/2022 Financial Resource Strain Answer Date R ecorded Difficulty of Paying Living Expenses 3 11/19/2022 Difficulty of Paying Living Expenses Not on file 11/19/2022 Food Insecurity Answer Date Recorded Worried About Running Out of Food in the Last Ye ar 1 11/19/2022 Transportation Needs Answer Date Record ed Lack of Transportation (Medical) 1 11/19/2022 Housing Stability Answer Date Recorded Unable to Pay for Housing in the Last Year 1 11/19/2022 Sex and Gender Information Value Date Recorded Sex Assigned at Not on file Gender Identity Not on file Sexual Orientation Not on file Obstetrics History Para Term AB IAB SAB Ectopic Multiple Livin g Live Births 4 4 4 4 4 Date Outcome GA Total Labor Labor/2nd/3rd Weight Sex Delivery Anes PTL Alicia A1 A5 Name Cl in Term Vag Sonia ng Term Vag Sonia ng Term Vag Sonia ng Term Vag Sonia ng Last Filed Vital Signs Vital Sign Reading Time Taken Comments Blood Pressure 122/80 01/01/2023 12:40 PM CDT Pulse 68 01/01/2023 12:40 PM CDT Temperature 36.6 ??C (97.9 ??F) 09/16/2021 10:56 AM C DT Respiratory Rate 16 04/24/2021 11:14 AM SECURE SOFTWARE ASSESSOR Oxygen Saturation 96% 01/01/2023 12:40 PM CDT Inhaled Oxygen Concentration - - Weight 110.2 kg (243 lb) 01/01/2023 12:40 PM CDT Height 152.4 cm (5') 01/01/2023 12:40 PM CDT Body Mass Index 47.46 01/01/2023 12:40 PM CDT Plan of Treatment Upcoming Encounters Date Type Department Care Team (Late st Contact Info) Description 06/29/2023 1:50 PM SECURE SOFTWARE ASSESSOR Office Visit [facility] [address] [facility] [address] Gasper Ludwig MD [address] [place] [address] Health Maintenance Due Date Last Done Comments Zoster (shingles) series for age 50+ (2 of 3) 12/30/2010 11/04/2010, 02/07/2009 Tetanus booster 07/21/2022 07/21/2012, 07/23, 08/07/2006, Additional history exists COVID-19 vaccine series ( season) 2023 12/31/2021, 02/04/2021, 07/31/2020, Additional history exists Influenza for age 65+ 01/23/2023 02/07/2022 , 01/29/2021, 02/17/2020, Additional history exists Medicare Wellness for age 65+ 01/01/2024, 12/31/2021, 10/25/2020, Additional history exists BMI (ht and wt on same day) for age 18+ 01/02/2024 01/01/2023, 10/29/2022, 12/31/2021, Additional history exists Depression screening for age 12+ 01/02/2024 01/01/2023, 01/01/2023, 01/01/2023, Additional history exists Tdap Completed 07/21/2012 Pneumococcal series for age 65+ Completed 01/24/2015, 09/08/2006, 05/25/2004, Additional history exists DEXA/DXA scan for age 65+ Completed 2018, 02/10/2017, 01/04/2009, Additional history exists Procedures Procedure Name Priority Date/Time Associated Diagnosis Comments INR,POCT Routine 06/05/2023 10:13 AM SECURE SOFTWARE ASSESSOR History of deep venous thrombosis (DVT) of distal vein of left lower extremity Anticoagulation monitoring, INR range 2-3 INR,POCT Routine 05/22/2023 11:09 AM SECURE SOFTWARE ASSESSOR History of deep venous thrombosis (DVT) of distal vein of left lower extremity Anticoagulation monitoring, INR range 2-3 INR,POCT Routine 04/15/2023 12:55 PM SECURE SOFTWARE ASSESSOR History of deep venous thrombosis (DVT) of distal vein of left lower extremity Anticoagulation monitoring, INR range 2-3 from Last 3 Months Results * (ABNORMAL) INR,POCT (06/05/2023 10:13 AM SECURE SOFTWARE ASSESSOR) Only the most recent of3 resultswithin the time period is included. INR 2.5(H) <1.3 06/05/2023 10:15 AM SECURE SOFTWARE ASSESSOR [facility] Blood BLOOD SPECIMEN / Unknown 06/05/2023 10:13 AM SECURE SOFTWARE ASSESSOR 06/05/2023 10:15 AM SECURE SOFTWARE ASSESSOR Narrative [facility] - 06/05/2023 10:15 AM SECURE SOFTWARE ASSESSOR ?Therapeutic Range 2.0-3.0 for most anticoagulated patients 2.5-3.5 or 4.0 for high risk patients Gasper Ludwig MD LABORATORY [facility] [address] [place] [address] from Last 3 Months Advance Directives Documents on File Type Date Recorded Patient Television Cameraman Expl anation Healthcare Directive 08/28/2019 020 Latest Code Status on File Code Status Date Activated Date Inactivated Comments Full Code 05/10/2015 10:00 AM 05/10/2015 9:24 PM Care Teams Gear Shaper Set Up Operator Relationship Specialty Start Date End Date Gasper Ludwig MD [address] [place] [address] PCP - General Family Practice 04/17/23
--- OUTSIDE RECORDS SUMMARY | 2023-06-24 13:37 | XMS_ITS | Clinical Summary ---
Author Name Unknown Organization [facility] Address [address] [address] Phone Care Team Providers Care Supervising Broker Name Role Phone Aileen Cronin MD Primary Care Provider Allergies Active Allergy Reactions Criticality Noted Date Comments Sulfa Drugs 11/13/2015 Medications Medication Sig Dispensed Refills Start Date End Date Status ATENOLOL OR Take 50 mg by mouth. 0 Active hydrochlorothiazide 25 MG tablet Take 25 mg by mouth one time a day. 0 Active warfarin (COUMADIN) 2 MG tablet Take 2 mg by mouth one time a day. 0 Active phenazopyridine (PYRIDIUM) 200 MG tablet Take 1 Tab by mouth three times a day as needed for Pain. 6 Tab 0 11/13/2015 Active Social History Tobacco Use Types Packs/Day Years Used Date Smoking Tobacco: Never Assessed Sex and Gender Information Value Date Recorded Sex Assigned at Not on file Gender Identity Not on file Sexual Orientation Not on file Last Filed Vital Signs Vital Sign Reading Time Taken Comments Blood Pressure 147/68 11/13/2015 8:20 AM CDT Pulse 76 11/13/2015 8:20 AM CDT Temperature 36.4 ??C (97.5 ??F) 11/13/2015 8:20 AM CD T Respiratory Rate 20 11/13/2015 8:20 AM CDT Oxygen Saturation 99% 01/23/2011 12:09 PM CDT Inhaled Oxygen Concentration - - Weight 114.3 kg (252 lb) 11/13/2015 8:20 AM CDT Height 157.5 cm (5' 2) 11/13/2015 8:20 AM CDT Body Mass Index 46.09 11/13/2015 8:20 AM CDT Plan of Treatment Not on file Care Teams Supervising Broker Relationship Specialty Start Date End Date Aileen Cronin MD [facility] [address] [place] [address] PCP - General Family Medicine 11/13/15
[2023-06-24] MEDS: TETRACAINE 0.5% OPHTH 1 DROP EYE-LEFT ×3 (13:40→14:08)
[2023-06-24] MEDS: BRIMONIDINE TARTRATE 0.2% OPHTH 1 DROP EYE-LEFT ×2 (13:40→14:11)
[2023-06-24 13:43] VITALS: BP 131/79; PULSE 67; RESP 16; O2SAT 97
--- NOTE | 2023-06-24 14:28 | P.OPTPRC_ITS ---
Procedure Note Date of procedure: 06/24/23 Will [facility] bill your pro fee for this procedure?: Yes Procedure Description: SURGEON: Randi Bueno MD PREOPERATIVE DIAGNOSIS: Posterior capsular opacity, left eye POSTOPERATIVE DIAGNOSIS: Posterior capsular opacity, left eye PROCEDURE: YAG laser capsulotomy, left eye ANESTHESIA: Topical. ESTIMATED BLOOD LOSS: None PATHOLOGY SPECIMEN: None COMPLICATIONS: None INDICATIONS: See consult note for details. The risks, benefits and alternatives of the procedure were explained to the patient, who elected to proceed and signed informed consent to do so. PROCEDURE: The patient was brought to the pre-holding area where the left eye was identified as the operative eye. I placed my initials above this eye. The patient received 2 sets of 1 drop of 0.5% tetracaine and 1 drop of 1% tropicamide. They also received 1 drop of 0.2% brimonidine. They received 1 drop of 0.5% tetracaine immediately prior to bringing them back for the procedure. The patient was then brought to the procedure room where the left eye was again identified as the operative eye. A YAG Genaro capsulotomy lens was placed on the eye. The laser was administered using a total number of 15 shots with an energy of 2.4 mJ per shot for a total energy of 36 mJ. The patient tolerated the procedure well. DISPOSITION: The patient was taken back to the pre-holding area and given 1 drop of 0.2% brimonidine in the left eye. They were discharged to home in stable condition. The patient was instructed to call me or go to the emergency department with any sudden change, including dramatic loss of vision, severe pain in the eye or eyebrow region, nausea, or vomiting. The patient was instructed to use the 0.2% brimonidine 1 drop 2 times a day in the left eye for 1 week. The patient will follow up in the clinic in 1-2 weeks
== END 2023-06-24 14:39 | disposition home or self-care (01) ==
LOC: EYE PRC 13:32
PROVIDERS: PCP Surgery; Visit Provider Ophthalmology
DX: H26.9 Unspecified cataract (principal)
CPT/HCPCS: 66821; A9270

== ENCOUNTER 2023-07-22 11:17 | Outpatient (CLI) | payer MEDICARE, BC, SELFPAY ==
[2023-07-22] MEDS: TETRACAINE 0.5% OPHTH 1 DROP EYE-RIGHT ×3 (11:31→11:47)
[2023-07-22] MEDS: BRIMONIDINE TARTRATE 0.2% OPHTH 1 DROP EYE-RIGHT ×2 (11:31→11:55)
[2023-07-22 11:33] VITALS: BP 166/78; PULSE 74; O2SAT 97
--- NOTE | 2023-07-22 12:16 | W.PM.OPTPROC ---
Procedure Note Date of procedure: 07/22/23 Will [facility] bill your pro fee for this procedure?: Yes Procedure Description: SURGEON: Randi Bueno MD PREOPERATIVE DIAGNOSIS: Posterior capsular opacity, right eye POSTOPERATIVE DIAGNOSIS: Posterior capsular opacity, right eye PROCEDURE: YAG laser capsulotomy, right eye ANESTHESIA: Topical. ESTIMATED BLOOD LOSS: None PATHOLOGY SPECIMEN: None COMPLICATIONS: None INDICATIONS: See consult note for details. The risks, benefits and alternatives of the procedure were explained to the patient, who elected to proceed and signed informed consent to do so. PROCEDURE: The patient was brought to the pre-holding area where the right eye was identified as the operative eye. I placed my initials above this eye. The patient received 2 sets of 1 drop of 0.5% tetracaine and 1 drop of 1% tropicamide. They also received 1 drop of 0.2% brimonidine. They received 1 drop of 0.5% tetracaine immediately prior to bringing them back for the procedure. The patient was then brought to the procedure room where the right eye was again identified as the operative eye. A YAG Genaro capsulotomy lens was placed on the eye. The laser was administered using a total number of 22 shots with an energy of 2.4 mJ per shot for a total energy of 53 mJ. The patient tolerated the procedure well. DISPOSITION: The patient was taken back to the pre-holding area and given 1 drop of 0.2% brimonidine in the right eye. They were discharged to home in stable condition. The patient was instructed to call me or go to the emergency department with any sudden change, including dramatic loss of vision, severe pain in the eye or eyebrow region, nausea, or vomiting. The patient was instructed to use the 0.2% brimonidine 1 drop 2 times a day in the right eye for 1 week. The patient will follow up in the clinic in 1-2 weeks.
== END 2023-07-22 11:56 | disposition home or self-care (01) ==
LOC: OP CLINIC 11:17
PROVIDERS: PCP Surgery; Visit Provider Ophthalmology
DX: H26.9 Unspecified cataract (principal)
CPT/HCPCS: 66821; A9270

== ENCOUNTER 2024-02-02 06:45 | Emergency (ER) | payer MEDICARE, BC, SELFPAY ==
[2024-02-02 06:53] VITALS: BP 175/80; PULSE 64; RESP 18; TEMP 36.8; O2SAT 97; BMI 45.9
--- NOTE | 2024-02-02 07:07 | ED.DENTAL ---
HPI - Dental/Oral General Date Seen: 02/02/24 Chief complaint: Dental/Oral/Mouth Injury/Pain Stated complaint: mouth pain Time Seen by Provider: 02/02/24 06:51 Source: patient Mode of arrival: ambulatory Limitations: no limitations History of Present Illness HPI Narrative: Patient is a 3-year-old female presenting to emergency department with her daughter presenting to the emergency department for jaw pain. She had to molars pulled yesterday and she states it is difficult for them to pull them out and has been causing some jaw pain. She has been taking Tylenol for pain without improvement in her symptoms. Is hoping for improved pain control. Also states she is on warfarin for previous blood clots. Was told to hold it for the 2 days prior to the tooth extraction by her primary care provider and was told by her oral surgeon to hold it the warfarin for 1 more day due to her continued bleeding from the areas. She states yesterday her INR was 2.6. No other concerns noted. States she has the most pain right with the 2 teeth were pulled but states the entire jaw is sore. Denies fevers or chills. Denies any concerns for infection at this time. Related Data Home Medications ?Medication ?Instructions ?Recorded ?Confirmed atenolol 50 mg tablet 50 mg PO Q24H 04/02/22 02/02/24 atorvastatin 20 mg tablet 20 mg PO DAILY 04/02/22 02/02/24 gabapentin 100 mg capsule 200 mg PO Q8H 04/02/22 02/02/24 hydrochlorothiazide 25 mg tablet 25 mg PO DAILY 04/02/22 02/02/24 warfarin 2 mg tablet 1 mg PO DAILY 04/02/22 02/02/24 Allergies Allergy/AdvReac Type Severity Reaction Status Date / Time No Known Drug Allergies Allergy Verified 04/02/22 12:17 Review of Systems Narrative: Pertinent systems reviewed and were negative unless stated in HPI PFSH PFSH Social History Smoking Status: Never smoker Do you use any of these nicotine containing products: None Second hand tobacco smoke exposure: No How often do you have a drink containing alcohol: never How often do you have six or more drinks on one occasion: Never AUDIT-C Alcohol total score: 0 Non-prescribed substance use: denies use Exam Narrative: Exam Narrative: Const: Well-nourished, Well-developed, in mild distress Eyes: PERRL, no conjunctival injection, and symmetrical lids HENT: Atraumatic external nose and ears. Moist mucous membranes. Recently removed tooth 18 and 31 with some mild bleeding from the sockets. Neck: Symmetric, trachea midline, No thyromegaly. MSK:Extremities w/o deformity, Normal Active ROM Skin: Warm, Dry. No rashes or lesions. Neuro: Normal Muscle tone, No focal neurological deficits. Psych: Awake, Alert, & Oriented x3. Appropriate mood and affect. Const: Vital Signs, click to edit/add: Vital Signs - 24 hr 02/02/24 06:53 Temperature 98.3 F Pulse Rate [Pulse Oximeter] 64 Respiratory Rate 18 Blood Pressure [Le ft Upper Arm] 175/80 H Pulse Oximetry 97 Oxygen Delivery Me thod Room Air Course Vital Signs Vital signs: Initial Vital Signs Temperature 98.3 F 02/02/24 06:53 Temperature Source Temporal Artery Scan 02/02/24 06:53 Pulse Rate 64 02/02/24 06:53 Respiratory Rate 18 02/02/24 06:53 Blood Pressure 175/80 H 02/02/24 06:53 Blood Pressure Mean 111 H 02/02/24 06:53 Blood Pressure Position Sitting 02/02/24 06:53 Pulse Oximetry 97 02/02/24 06:53 Oxygen Delivery Method Room Air 02/02/24 06:53 Vital Signs Temperature 98.3 F 02/02/24 06:53 Pulse Rate 64 02/02/24 06:53 Respiratory Rate 18 02/02/24 06:53 Blood Pressure 175/80 H 02/02/24 06:53 Pulse Oximetry 97 02/02/24 06:53 Oxygen Delivery Method Room Air 02/02/24 06:53 Temperature 98.3 F 02/02/24 06:53 Pulse Rate 64 02/02/24 06:53 Respiratory Rate 18 02/02/24 06:53 Blood Pressure 175/80 H 02/02/24 06:53 Pulse Oximetry 97 02/02/24 06:53 Oxygen Delivery Method Room Air 02/02/24 06:53 MDM - Dental/Oral MDM Narrative Medical decision making narrative: Patient is an 83-year-old female presenting for dental pain. She is just hoping for better pain control and I am agreeable to give her oxycodone. I did warned her about the oxycodone causing increased fall risk and to be careful. Her and her daughter state they understand. No signs infection antibiotics are not necessary. They asked about holding the warfarin. Considering her INR was 2.6 yesterday and it is for previous blood clots I do think it is okay for whole or to hold the warfarin for another couple days. I did tell her to speak to her primary care provider if she is continuing to bleed on what to do about the warfarin. Discharge Plan Discharge Clinical Impression: Toothache Patient Disposition: Home, Self-Care Condition: Stable Instructions: Toothache (ED) Additional Instructions: It is okay to hold your warfarin today as recommended by your oral surgeon. If you continue to bleed through tomorrow speak to her primary care provider on if he should continue to hold warfarin or what they recommend. Of note oxycodone does increase fall risk is and he should be careful when taking it. This was prescribed through [facility] Prescriptions: No Action atenolol 50 mg tablet 50 mg PO Q24H Patient Comments: TAKE ONE TABLET BY MOUTH EVERY DAY atorvastatin 20 mg tablet 20 mg PO DAILY Patient Comments: TAKE ONE TABLET BY MOUTH ONCE DAILY gabapentin 100 mg capsule 200 mg PO Q8H Patient Comments: TAKE 2 CAPSULES (200 MG) BY MOUTH 3 TIMES DAILY. hydrochlorothiazide 25 mg tablet 25 mg PO DAILY Patient Comments: TAKE ONE TABLET BY MOUTH EVERY DAY warfarin 2 mg tablet 1 mg PO DAILY Patient Comments: TAKE ONE-HALF TABLET (1MG) BY MOUTH EVERY TUE, FRI; TAKE ONE TABLET (2MG) ALL OTHER DAYS IN THE EVENING OR DIRECTED Follow Up/Referrals: Gasper Ludwig MD [Primary Care Provider] - Stand Alone Forms: [employer] Info Instructions
--- OUTSIDE RECORDS SUMMARY | 2024-02-02 07:21 | XMS_ITS | Clinical Summary ---
Author Organization [facility] ??? [facility] Address [address] [address] Phone Care Team Providers Care Manager Bank Name Role Phone Aileen Cronin MD Primary Care Provider Allergies Active Allergy Reactions Criticality Noted Date Comments Sulfa Drugs 11/13/2015 Medications Medication Sig Dispensed Refills Start Date End Date Status ATENOLOL OR Take 50 mg by mouth. Active hydrochlorothiazide 25 MG tablet Take 25 mg by mouth one time a day. Active warfarin (COUMADIN) 2 MG tablet Take 2 mg by mouth one time a day. Active phenazopyridine (PYRIDIUM) 200 MG tablet Take 1 Tab by mouth three times a day as needed for Pain. 6 Tab 11/13/2015 Active Social History Tobacco Use Types [...] of Treatment Not on file Care Teams Manager Bank Relationship Specialty Start Date End Date Aileen Cronin MD [facility] [address] [place] [address] PCP - General Family Medicine 11/13/15
--- OUTSIDE RECORDS SUMMARY | 2024-02-02 07:21 | XMS_ITS | Clinical Summary ---
Author Organization [facility] Address [place], [place] [address] Care Team Providers Care Fold Skiver Name Role Phone Gasper Ludwig MD Primary Care Provider [phone] Allergies Active Allergy Reactions Criticality Noted Date [...] 4000mg in 24 hrs. 0 6 Active diclofenac topical (VOLTAREN) 1 % gelIndications:Arth ritis of both hands Apply 4 g topically to affected area(s) four times daily. 100 g 1 4 Active gabapentin (NEURONTIN) 300 mg capsuleIndications: Arthritis of both hands Take 1 Capsule (300 mg) by mouth three times daily. 270 Capsule 3 4 Active hydroCHLOROthiazide 25 mg tabletIndications:E ssential hypertension Take 1 Tablet (25 mg) by mouth once daily. 90 Tablet 3 4 Active atorvastatin (LIPITOR) 20 mg tabletIndications:H yperlipidemia, unspecified hyperlipidemia type Take 1 Tablet (20 mg) by mouth once daily. 90 Tablet 3 4 Active atenoloL (TENORMIN) 50 mg tabletIndications:E ssential hypertension Take 1 Tablet (50 mg) by mouth once daily. 90 Tablet 3 4 Active warfarin (COUMADIN) 2 mg tabletIndications:H istory of deep venous thrombosis (DVT) of distal vein of left lower extremity,Anticoagu lation monitoring, INR range 2-3,History of pulmonary embolism Take by mouth 2 mg (2 mg x 1) every day in the evening OR as directed 4 Active oxygen-air delivery systems (HOME OXYGEN)Indications: Hypoxia Oxygen for home use. Liters per minute: 1-2 per nasal cannula. Frequency of use: With activity;. Length of need: 99 Months. 1 Each 3 01/05/20 24 Discontinue d(*Patient states no longer taking) oxygen-air delivery systems (HOME OXYGEN)Indications: Hypoxia Portable Oxygen concentrator. Oxygen for home use. Liters per minute: 1 per nasal cannula. Frequency of use: with activity and Nocturnal;. Length of need: 99 Months. 1 Each 3 01/05/20 24 Discontinue d(*Patient states no longer taking) atenoloL (TENORMIN) 50 mg tabletIndications:E ssential hypertension Take 1 Tablet (50 mg) by mouth once daily. 90 Tablet 3 3 01/05/20 Discontinue d(Reorder (E-cancel not sent)) atorvastatin (LIPITOR) 20 mg tabletIndications:H yperlipidemia, unspecified hyperlipidemia type Take 1 Tablet (20 mg) by mouth once daily. 90 Tablet 3 3 01/05/20 Discontinue d(Reorder (E-cancel not sent)) gabapentin (NEURONTIN) 100 mg capsuleIndications: Foraminal stenosis of cervical region Take 2 Capsules (200 mg) by mouth three times daily. 540 Capsule 3 01/05/20 Discontinue d(*Medicati on adjustment) hydroCHLOROthiazide (HCTZ) 25 mg tabletIndications:E ssential hypertension Take 1 Tablet (25 mg) by mouth once daily. 90 Tablet 01/05/20 Discontinue d(Reorder (E-cancel not sent)) diclofenac topical (VOLTAREN) 1 % gelIndications:Hip pain, left Apply 4 g topically to affected area(s) four times daily. 100 g 1 4 01/05/20 Discontinue d(Reorder (E-cancel not sent)) warfarin (COUMADIN) 2 mg tabletIndications:H istory of deep venous thrombosis (DVT) of distal vein of left lower extremity,Anticoagu lation monitoring, INR range 2-3,History of pulmonary embolism Take by mouth 2 mg (2 mg x 1) every day in the evening OR as directed 4 01/26/20 24 Discontinue d(Reorder (E-cancel not sent)) warfarin (COUMADIN) 2 mg tabletIndications:H istory of deep venous thrombosis (DVT) of distal vein of left lower extremity,Anticoagu lation monitoring, INR range 2-3,History of pulmonary embolism Take by mouth 01/29: Hold; 01/30: Hold; Otherwise 2 mg every day in the evening OR as directed 4 02/01/20 24 Discontinue d(Other - add note to specify (E-cancel not sent)) Active Problems Problem Noted Date Diagnosed Date Pulmonary embolism on right 01/05/2024 Stage 3a chronic kidney disease 01/05/2024 History of pulmonary embolus (PE) 06/10/2019 Overview (01/01/2023): Right sided in 1994 Body mass index (BMI) 45.0-49.9, adult 0 Osteoporosis 06/10/2019 Overview (06/10/2019): Previously on fosamax. Elected to not treat further 05/2019. 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 evaluation by Dr. Blackman. did not use tamoxifen because of history of PE Unspecified asthma(493.90) 08/06/2006 Unspecified essential hypertension 05/26/2006 Resolved Problems Problem Noted Date Diagnosed Date Resolved Date History of pulmonary embolism 09/06/2018 10/25/2020 Chest pain 05/10/2015 05/24/2019 Abnormal cardiovascular stress test 05/10/2015 05/24/2019 Overview (05/10/2015): - 04/11/15: There is a small area of mild ischemia in the apical anterior wall. Normal left ventricular ejection fraction of approximately 65 percent Fracture of right toe 05/10/20152020 History of breast cancer 04/30/2015 History of pulmonary emphysema 11/23/2014 10/25/2020 Overview (11/23/2014): 11-09-2007 Nummular eczema 07/21/2012 05/24/2019 Paresthesia 05/21/2010 05/24/2019 Unspecified tinnitus 05/21/2009 019 Osteopenia 01/16/2009 06/10/2019 Overview (05/24/2019): Last Dexa 2016 - repeat recommended in 2 years Routine general medical exam ination at a health care facility 01/03/2009 05/24/2019 Overview (05/01/2009): Colonoscopy 2004, no polyps.path normal. Ok to recheck in 10 years. jail (current) use of anticoagulants 11/25/2007 11/02/2010 Overview (01/17/2009): INR goal range 2.0-3.0 Hemorrhage of rectum and anus 03/08/2007 01/03/2009 Osteoarthrosis, unspecified whether generalized or localized, unspecified site 03/08/2007 05/24/2019 Encounters Date Type Department Care Team Description 02/01/2024 9:30 AM CDT Orders Only [facility] [address] [place] [address] Lab 02/01/2024 Telephone [facility] [address] [facility] [place] [address] Gasper Ludwig MD Anticoagulation (Anticoagulation renewal orders) 02/01/2024 Anticoagulation (warfarin) [facility] [address] [place] [address] 1, [facility] Anticoagulation 02/01/[address] [place] [address] Gasper Ludwig MD Anticoagulation 02/01/2024 Travel 01/26/2024 Anticoagulation (warfarin) [facility] [address] [facility] [place] [address] Clinic, [facility] Anticoagulation (Chart update) 01/22/2024 Telephone [facility] [address] [place] [address] Gasper Ludwig MD Anticoagulation (Procedure: 2-3 Tooth extractions ) 01/14/2024 3:00 PM CDT Office Visit [facility] [address] [facility] [place] [address] [address] 01/14/2024 Travel 01/05/2024 10:55 AM CDT Office Visit [facility] [address] [facility] [place] [address] Gasper Ludwig MD Medicare ANNUAL (subsequent) Visit (medicare annual wellness); Results (mammogram results); Edema (swelling in both ankles); Lump (discuss hernia ); Arthritis (arthritis in hands) 01/05/2024 Travel 12/24/2023 1:15 PM CDT Orders Only [facility] [address] [facility] [place] [address] Lab, [facility] 12/24/2023 12:30 PM CDT Office Visit [facility] [address] [facility] [place] [address] Naga Lujan, AuD [facility] 12/24/2023 Anticoagulation (warfarin) [facility] [address] [place] [address] Clinic, [facility] Anticoagulation 12/24/2023 Travel 12/03/2023 11:00 AM CDT Office Visit [facility] [address] [facility] [place] [address] [place] [facility] 12/03/2023 Travel 11/20/2023 Telephone [facility] [address] [facility] [place] [address] Gasper Ludwig MD Anticoagulation 11/18/2023 1:45 PM CDT Orders Only [facility] [address] [place] [address] Lab, [place] 11/18/2023 1:00 PM CDT Ancillary Procedure [facility] [address] [place] [address] 11/18/2023 Anticoagulation (warfarin) [facility] [address] [place] [address] Clinic, [facility] Anticoagulation 11/18/2023 Travel 11/10/2023 1:30 PM CDT Office Visit [facility] [address] [facility] [place] [address] Naga Lujan, Isai [facility] (Fitting) 11/10/2023 Travel from Last 3 Months Immunizations Name Administration Dates Next Due AMB Influenza, IIV3 (Age >=3 years)(Flu Clinic Only) 03/20/2010 AMB Influenza, IIV4 PF (=>6 mos Flulaval,Fluzone Fluarix)(Flu Clinic Only) 02/22/2019 Amb Influenza, Inact (High-d ose) (Flu Clinic Only) 02/21/2016 Amb Influenza, Inactivated A IIV4 (Age 65+ Years) Preserv Free 02/17/2020 COVID-19 VACCINE COMIRNATY ([facility] 30MCG/0.3ML) 12YO+ PFS 02/26/2023 COVID-19 vaccine ([employer] NT[employer] 30mcg/0.3mL) 12YO+ ANT-SUCROSE PF, MDV 12/31/2021 COVID-19 vaccine ([employer] 30mcg/0.3mL) PF, MDV 02/04/2021,07/31/2020,07/10/2020 DT (Age < 7 years) 06/23/1988,06/14/1987 HepA-HepB (Twinrix) 07/02/2007, 7,09/08/2006,08/07 Hepatitis A, Unspecified 08/07/2006 Hepatitis B, Unspecified 08/07/2006 Influenza A (H1N1), Inactivated 07/02/2009 Influenza A (H1N1), Inactiva dante (Age >=3 Years) 07/02/2009 Influenza Virus, Unspecified 02/20/2014, 01/24/2013,02/23/2008,02/22 Influenza, High-dose Inactivated 024,01/24/2015,02/09/2014,01/24 Influenza, High-dose Quadriv alent Inactivated 02/26/2023 Influenza, IIV3 (Age 6-35 mos) 02/27/2011,2008 Influenza, IIV3 (Age >=3 years) 02/01/20 13,02/04/2012,02/27/2011,04/17,03/06/2008,04/07/2007,03/24/2006 ,03/13/2005,03/04/2004,03/27/2003 Influenza, Inactivated AIIV4 (Age 65+ Years) Preserv Free 02/07/2022,01/29/2021 Influenza, Inactivated IIV3 (Age 65+ Years) Preserv Free 02/09/2018,02/06/2017 Pneumococcal Conj 20-valent (Prevnar 20) 09/21/2023 Pneumococcal Poly,23-Valent (Pneumovax) 09/08/2006,05/25/2004,03/17/1998 Pneumococcal conj 13-Valent (Prevnar 13) 01/24/2015 RSV, Bivalent Vaccine Recons tituted (Abrysvo 120MCG/0.5mL) 07/15/2023 TD, UNSPECIFIED 05/25/2005 Td (Age >=7 Years) 08/07/2006,05/25/2005, 997 Td, Preservative Free (age >= 7 Years) 7,05/05/1997 Tdap 01/14/2024,07/21/2012 Typhoid (injectable) 02/04/2012,08/13/2009,08/07 Zoster (Shingrix-RZV, recombinant) 01/07/2024, Zoster (Zostavax-ZVL, live) 11/04/2010, 9 Family History [...] PHQ-2 Answer Date Recorded PHQ-2 TOTAL SCORE 2 01/05/2024 Social Connections Answer Date Recorded Frequency of Communication with Friends and Fami ly 0 01/05/2024 Financial Resource Strain Answer Date R ecorded Difficulty of Paying Living Expenses 3 01/05/2024 Difficulty of Paying Living Expenses Not on file 01/05/2024 Food Insecurity Answer Date Recorded Worried About Running Out of Food in the Last Ye ar 1 01/05/2024 Transportation Needs Answer Date Record ed Lack of Transportation (Medical) 1 01/05/2024 Housing Stability Answer Date Recorded Unable to Pay for Housing in the Last Year 1 01/05/2024 Sex and Gender Information Value Date Recorded Sex Assigned at Not on file Gender Identity Not on file Sexual Orientation Not on file Obstetrics History Para Term AB IAB SAB Ectopic Multiple Livin g Live Births 4 4 4 4 4 Date Outcome GA Total Labor Labor/2nd/3rd Weight Sex Type Anes PTL Alicia A1 A5 Name Clin Term Vag Living Term Vag Living Term Vag Living Term Vag Living Last Filed Vital Signs Vital Sign Reading Time Taken Comments Blood Pressure 121/65 01/05/2024 11:01 AM CDT Pulse 75 01/05/2024 11:01 AM CDT Temperature 36.6 ??C (97.9 ??F) 09/16/2021 10:56 AM C DT Respiratory Rate 16 04/24/2021 11:14 AM AIR COMPRESSOR ENGINEER Oxygen Saturation 94% 01/05/2024 11:01 AM CDT Inhaled Oxygen Concentration - - Weight 110.2 kg (243 lb) 01/05/2024 11:01 AM CDT Height 153 cm (5' 0.24) 01/05/2024 11:01 AM CDT Body Mass Index 47.09 01/05/2024 11:01 AM CDT Plan of Treatment Upcoming Encounters Date Type Department Care Team (Late st Contact Info) Description 02/09/2024 10:30 AM CDT Orders Only [facility] [address] [place] [address] Lab, [facility] Maintenance Due Date Last Done Comments COVID-19 vaccine series ( season) 2024 02/26/2023, 12/31/2021, 02/04/2021, Additional history exists Influenza for age 65+ 01/24/2024 01/07/2024 , 02/26/2023, 02/07/2022, Additional history exists BMI (ht and wt on same day) for age 18+ 01/04/2025 01/05/2024, 01/01/2023, 10/29/2022, Additional history exists Depression screening for age 12+ 01/04/2025 01/05/2024, 01/01/2023, 01/01/2023, Additional history exists Medicare Wellness for age 65+ 01/05/2025, 01/01/2023, 12/31/2021, Additional history exists Tetanus booster 01/13/2034 01/14/2024, 06/26, 08/07/2006, Additional history exists DEXA/DXA scan for age 65+ Completed 2018, 02/10/2017, 01/04/2009, Additional history exists RSV vaccine for adults or Completed 07/15/2023 Pneumococcal series for age 65+ Completed 09/21/2023, 01/24/2015, 09/08/2006, Additional history exists Zoster (shingles) series for age 50+ Completed 01/07/2024, 09/21/2023, 11/04/2010, Additional history exists Tdap Completed 01/14/2024, 07/21/2012 Procedures Procedure Name Priority Date/Time Associated Diagnosis Comments INR,POCT Routine 02/01/2024 9:42 AM CDT History of deep venous thrombosis (DVT) of distal vein of left lower extremity Anticoagulation monitoring, INR range 2-3 LIPID PANEL Routine 01/05/2024 12:07 PM CDT Hyperlipidemia, unspecified hyperlipidemia type BASIC METABOLIC PANEL Routine 01/05/2024 12:07 PM CDT Bilateral lower extremity edema INR,POCT Routine 12/24/2023 1:06 PM CDT History of deep venous thrombosis (DVT) of distal vein of left lower extremity Anticoagulation monitoring, INR range 2-3 INR,POCT Routine 11/18/2023 1:20 PM CDT History of deep venous thrombosis (DVT) of distal vein of left lower extremity Anticoagulation monitoring, INR range 2-3 XR MAMMO GERRY UNI SCREEN RIGHT Routine 11/18/2023 1:14 PM CDT Visit for screening mammogram XR DXA BONE DENSITY 2 SITES AXIAL Routine 05/24/2019 12:42 PM AIR COMPRESSOR ENGINEER Asymptomatic menopausal state Osteopenia, unspecified location from Last 3 Months or Most Recently Relevant to Health Maintenance Results * (ABNORMAL) INR,POCT (02/01/2024 9:42 AM CDT) Only the most recent of3 resultswithin the time period is included. INR 2.6(H) <1.3 02/01/2024 9:50 AM CDT [facility] Blood BLOOD SPECIMEN / Unknown Capillary / Unknown 02/01/2024 9:42 AM CDT 02/01/2024 9:47 AM CDT Narrative [facility] - 02/01/2024 9:50 AM CDT ?Therapeutic Range 2.0-3.0 for most anticoagulated patients 2.5-3.5 or 4.0 for high risk patients Gasper Ludwig MD LABORATORY [facility] [address] [place] [address] * LIPID PANEL (01/05/2024 12:07 PM CDT) CHOLESTEROL,TOTAL 157 100 - 199 mg/dL 01/06/2024 4:31 AM CDT [facility] Comment: Cholesterol, Total Reference Ranges Desirable <200 mg/dL Borderline 200-239 mg/dL High >=240 mg/dL TRIGLYCERIDES 132 <150 mg/dL 01/06/2024 4:31 AM CDT [facility] HDL CHOLESTEROL 64 >40 mg/dL 4:31 AM CDT [facility] NON-HDL CHOLESTEROL 93 <145 mg/dl 01/06/2024 4:31 AM CDT [facility] CHOL/HDL RATIO 2.45 <4.50 01/06/2024 4:31 AM CDT [facility] LDL CHOLESTEROL 67 <=130 mg/dL 01/06/2024 4:31 AM CDT [facility] VLDL CHOLESTEROL 26 <=30 mg/dL 01/06/2024 4:31 AM CDT [facility] PROVIDER ORDERED STATUS RANDOM 01/06/2024 4:31 AM T [facility] Blood BLOOD SPECIMEN / Unknown Venipuncture / Unknown 01/05/2024 12:07 PM CDT 01/05/2024 12:09 PM CDT Gasper Ludwig MD CHEMISTRY [facility] [address] [place] [address], * (ABNORMAL) BASIC METABOLIC PANEL (01/05/2024 12:07 PM CDT) SODIUM 140 136 - 145 mmol/L 01/06/2024 4:31 AM T [facility] POTASSIUM 4.4 3.5 - 5.1 mmol/L 01/06/2024 4:31 AM T [facility] CHLORIDE 98 98 - 107 mmol/L 01/06/2024 4:31 AM T [facility] CO2,TOTAL 30(H) 22 - 29 mmol/L 01/06/2024 4:31 AM T [facility] ANION GAP 12 5 - 18 01/06/2024 4:31 AM T [facility] GLUCOSE 99 70 - 99 mg/dL 01/06/2024 4:31 AM T [facility] CALCIUM 9.8 8.8 - 10.2 mg/dL 01/06/2024 4:31 AM [facility] BUN 11 8 - 23 mg/dL 01/06/2024 4:31 AM [facility] CREATININE 0.87 0.50 - 0.90 mg/dL 01/06/2024 4:31 AM T [facility] BUN/CREAT RATIO 13 10 - 20 4:31 AM [facility] eGFR 66(L) >90 mL/min/1.7 3m2 01/06/2024 4:31 AM [facility] Comment:As of 2021, eG FR is calculated by the CKD-EPI creatinine equation without race adjustment. ??eGFR can be influenced by muscle mass, exercise, and diet. ??The reported eGFR is an estimation only and is only applicable if the renal function is stable. Blood BLOOD SPECIMEN / Unknown Venipuncture / Unknown 01/05/2024 12:07 PM CDT 01/05/2024 12:09 PM CDT Gasper Ludwig MD CHEMISTRY [facility] [address] [place] [address], [place] * XR MAMMO GERRY UNI SCREEN RIGHT (11/18/2023 1:14 PM CDT) Anatomical Region Laterality Modality BREASTS, Breast Right Right Mammograph y Impressions 11/24/2023 2:07 PM CDT ??There is no radiographic evidence for malignancy. ??Recommend annual mammograms. MAMMOGRAM ASSESSMENT: ??ACR 1 Negative PATIENTS: You will also receive a letter with your examination results in an easy to read format. ??If you have questions about your results, please contact your referring provider. Narrative 11/24/2023 2:07 PM CDT For Patients: As a result of the Cures Act, medical imaging exams and procedure reports are released immediately into your electronic medical record. You may view this report before your referring provider. If you have questions, please contact your health care provider. XR MAMMO GERRY UNI SCREEN RIGHT [[id number]] CLINICAL HISTORY: ??This is an asymptomatic 83 y.o. patient. INDICATION FOR EXAM: Mammogram Screening. TECHNIQUE: CC & MLO views were obtained. ??This study was evaluated with the assistance of Computer-Aided Detection. Breast Tomosynthesis was used in interpretation. COMPARISON FILM: Yes 11/17/22 [facility] 11/14/21 [facility] FINDINGS: ??The right breast is almost entirely fatty. There are no dominant masses, suspicious micro calcifications or areas of architectural distortion. Gasper Ludwig MD MAMMO * (ABNORMAL) XR DXA BONE DENSITY 2 SITES AXIAL (05/24/2019 12:42 PM AIR COMPRESSOR ENGINEER) Anatomical Region Laterality Modality Spine, HIPS, HIPL, HIPR Other Narrative 05/27/2019 11:00 AM AIR COMPRESSOR ENGINEER Please see scanned document for results of this study. 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
== END 2024-02-02 07:32 | disposition home or self-care (01) ==
LOC: ED 07:19
PROVIDERS: Emergency Provider Student in an Organized Health Care Education/Training Program; PCP Surgery
DX: K08.89 Other specified disorders of teeth and supporting structures (principal)
CPT/HCPCS: 99281; 99283